=== PATIENT | male | born 1980 | race Two or more races ===

== ENCOUNTER 2020-05-25 10:13 | Inpatient (IN) | payer SELFPAY ==
[2020-05-25] VITALS (10 sets, daily range): BP systolic 122–143; BP diastolic 87–96
[~2020-05-25] VITALS: Ht 167.6 cm; Wt 69.3 kg
--- NOTE | 2020-05-25 10:38 | PHYS DOC ---
General Adult EDM: Chief Complaint: ABDOMINAL PAIN HPI: HPI: Patient is a 39 year old male who presents with states this morning after he drank a beer he began having epigastric pain. He states that he had gone to the market because yesterday he fasted and took laxatives to clean himself out. But went to the market today so he can buy himself some food. He states he drinks a 12 pack of beer every night after work. He states he does not get drunk. Patient states he has epigastric pain that does not radiate. He rates it a 10 out of 10. He states he does use marijuana from time to time. When the patient is asked what the quality of the pain is or what it feels like he states is just a pain. He states is not burning or stabbing. He denies nausea, vomiting, diarrhea, chest pain, shortness of breath, fever, cough, dizziness, headache, numbness or tingling, LOC, vision changes, tremors. 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 He denies any past medical history. He denies taking any medications daily. (FILIPE NELSON APRN) Review of Systems: Review of Systems: Constitutional: Denies fever or chills. [] Eyes: Denies change in visual acuity. [] HENT: Denies nasal congestion or sore throat. [] Respiratory: Denies cough or shortness of breath. [] Cardiovascular: Denies chest pain or edema. [] GI: Epigastric abdominal pain, denies nausea, vomiting, bloody stools or diarrhea. [] : Denies dysuria. [] Musculoskeletal: Denies back pain or joint pain. [] Integument: Denies rash. [] Neurologic: Denies headache, focal weakness or sensory changes. [] Endocrine: Denies polyuria or polydipsia. [] Lymphatic: Denies swollen glands. [] Psychiatric: Denies depression or anxiety. Alcohol abuse [] (FILIPE NELSON APRN) Heart Score: Risk Factors: Risk Factors: DM, Current or recent (<one month) smoker, HTN, HLP, family history of CAD, obesity. Risk Scores: Score 0 - 3: 2.5% MACE over next 6 weeks - Discharge Home Score 4 - 6: 20.3% MACE over next 6 weeks - Admit for Clinical Observation Score 7 - 10: 72.7% MACE over next 6 weeks - Early Invasive Strategies (FILIPE NELSON APRN) Physical Exam: PE: Constitutional: Well developed, well nourished, no acute distress, non-toxic appearance. [] HENT: Normocephalic, atraumatic, bilateral external ears normal, oropharynx moist, no oral exudates, nose normal. [] Eyes: PERRLA, EOMI, conjunctiva normal, no discharge. [] Neck: Normal range of motion, no tenderness, supple, no stridor. [] Cardiovascular:Heart rate regular rhythm, no murmur [] Lungs & Thorax: Bilateral breath sounds clear to auscultation [] Abdomen: Bowel sounds normal, soft, epigastric tenderness, no masses, no pulsatile masses. [] Skin: Warm, dry, no erythema, no rash. [] Back: No tenderness, no CVA tenderness. [] Extremities: No tenderness, no cyanosis, no clubbing, ROM intact, no edema. [] Neurologic: Alert and oriented X 3, normal motor function, normal sensory function, no focal deficits noted. [] Psychologic: Affect normal, judgement normal, mood normal. [] (FILIPE NELSON APRN) EKG: EK and read by Dr Manriquez as Sinuys Rhythm and no STEMI[] (FILIPE NELSON APRN) Radiology/Procedures: Radiology/Procedures: [] Impression: [facility] [address] [place] [address] IMAGING REPORT Signed PATIENT: CARMELA BATES ACCOUNT: [id number] : 1980 LOCATION: ER AGE: 39 SEX: M EXAM STATUS: REG ER ORD. PHYSICIAN: FILIPE NELSON APRN REASON: abd pain, etoh abuse PROCEDURE: CT ABD PELV W/ IV CONTRST ONLY CT ABD PELV W/ IV CONTRST ONLY History: Reason: abd pain, etoh abuse / Spl. Instructions: IV OMNI 300 75 MLS / History: Technique: After the administration of intravenous contrast, CT imaging was performed of the abdomen and pelvis. Multiplanar images are reviewed. Exposure: One or more of the following individualized dose reduction techniques were utilized for this examination: 1. Automated exposure control 2. Adjustment of the mA and/or kV according to patient size 3. Use of iterative reconstruction technique. Comparison: None Findings: Lower chest: No consolidation or pleural effusion. Right lower lobe calcified nodule, likely prior granulomatous disease. Abdomen and pelvis: Small foci of pneumoperitoneum. Small perihepatic and perisplenic as well as pelvic free fluid. Mildly dilated fluid-filled loops of small bowel throughout the abdomen. No discrete condition point. Mild small bowel wall thickening most prominent within the left mid abdomen. Anterior mesenteric edema. Fat-containing anterior upper abdominal wall hernia with infiltration of the fat raising concern for strangulation. Fascial defect measures 1.3 cm. Hernia measures approximately 3.6 x 3.8 cm. The liver, spleen, adrenal glands, and pancreas are unremarkable. Normal appearance the kidneys. No hydronephrosis. Decompressed urinary bladder. Mild gallbladder wall thickening with pericholecystic fluid. No biliary ductal dilatation. Patent portal and hepatic veins. Normal appendix. Bones: No pathologic osseous lesions. Impression: 1. Small upper abdominal pneumoperitoneum, concerning for bowel perforation. 2. Multifocal small bowel wall thickening most prominent within the left mid abdomen with adjacent inflammatory changes and infiltration of the anterior mesentery, may relate to enteritis. 3. Upper abdominal anterior fat-containing hernia with infiltration of the fat, raising concern for strangulated hernia. 4. Small upper abdominal and pelvic ascites. 5. Mild gallbladder wall thickening with pericholecystic fluid, may relate to liver disease. If concern for right upper quadrant pain, ultrasound can better evaluate. FOR INTERNAL CODING PURPOSES Critical result: Findings discussed with FILIPE NELSON at 05/25/2020 11:34 AM. RESULT CODE: (C) Electronically signed by: Blaine Flores DO (05/25/2020 11:37 AM) [id number] DICTATED and SIGNED BY: BLAINE FLORES DO DATE: 05/25/20 1137 [facility] [address] [place] [address] IMAGING REPORT Signed PATIENT: CARMELA BATES ACCOUNT: [id number] : 1980 LOCATION: ER AGE: 39 SEX: M EXAM STATUS: REG ER ORD. PHYSICIAN: FILIPE NELSON APRN REASON: epigastric PROCEDURE: PORTABLE CHEST 1V AP chest. HISTORY: Epigastric pain AP view was taken of the chest. There are no acute infiltrates. There is no effusion. Heart is normal in size. There is deformity of the left fourth rib from old injury or previous surgery or congenital deformity. IMPRESSION: 1. No acute chest disease. Electronically signed by: Arnulfo Mota MD (05/25/2020 12:26 PM) [id number] DICTATED and SIGNED BY: ARNULFO MOTA MD DATE: 05/25/20 1226 (FILIPE NELSON APRN) Course & Med Decision Making: Course & Med Decision Making Pertinent Labs and Imaging studies reviewed. (See chart for details) Abdomen is soft but tender to epigastric. Denies dark or bloody stools. Denies vomiting blood or dysuria. Alert and Oriented. Speaks in full clear sentences. Ambulatory with steady gait. No peripheral edema. Bowel sounds active. Skin pink warm and dry. Patient is positive for amphetamines, marijuana and alcohol levels 25. Patient states he last drank a red bull and a beer this morning at 830. He states he has not had any food since yesterday. There is a small umbilical hernia that is soft and is seen when patient goes to sit up but not felt or seen when laying flat. Impression: 1. Small upper abdominal pneumoperitoneum, concerning for bowel perforation. 2. Multifocal small bowel wall thickening most prominent within the left mid abdomen with adjacent inflammatory changes and infiltration of the anterior mesentery, may relate to enteritis. 3. Upper abdominal anterior fat-containing hernia with infiltration of the fat, raising concern for strangulated hernia. 4. Small upper abdominal and pelvic ascites. 5. Mild gallbladder wall thickening with pericholecystic fluid, may relate to liver disease. If concern for right upper quadrant pain, ultrasound can better evaluate. Zosyn was started on the patient. I have ordered a stat COVID-19 test. I have spoken to Dr Enriquez for admission. I spoken to Dr. Hernandez for surgery. [] (FILIPE NELSON APRN) Dragon Disclaimer: Dragon Disclaimer: This electronic medical record was generated, in whole or in part, using a voice recognition dictation system. (FILIPE NELSON APRN) Departure Departure Impression: Primary Impression: Pneumoperitoneum Additional Impression: Strangulated epigastric hernia Disposition: ADMITTED INPATIENT Admitting Physician: ADAM (FILIPE NELSON APRN) Condition: STABLE Referrals: NO PCP (PCP) Justicifation of Admission Dx: Justifications for Admission: Justification of Admission Dx: Yes Comments: Pneumoperitoneum (FILIPE NELSON APRN) Attending Signature Attending Signature I have reviewed the PA/MFTS's note and plan of care. I was available for consultation as needed during the patient's visit in the emergency department. I agree with the clinical impression, plan, and disposition. (AILEEN MANRIQUEZ DO) FILIPE NELSON APRN May 25, 2020 10:38 AILEEN MANRIQUEZ DO May 28, 2020 01:04
[2020-05-25 10:54] LABS: BASO # 0.1 x10^3/uL (0.0-0.2); BASO % 1 % (0-3); EOS # 0.1 x10^3/uL (0.0-0.7); EOS % 1 % (0-3); HEMOGLOBIN 15.9 g/dL (13.0-17.5); LYMPH # 1.6 x10^3/uL (1.0-4.8); LYMPH % 14 % (24-48); MEAN CORPUSCULAR HEMOGLOBIN 31 pg (25-35); MEAN CORPUSCULAR HGB CONC 35 g/dL (31-37); MEAN CORPUSCULAR VOLUME 87 fL (79-100); MONO # 0.6 x10^3/uL (0.0-1.1); MONO % 6 % (0-9); NEUT # 9.1 x10^3/uL (1.8-7.7); NEUT % 79 % (31-73); PLATELET COUNT 505 x10^3/uL (140-400); RED CELL DISTRIBUTION WIDTH 13.9 % (11.5-14.5); WHITE BLOOD COUNT 11.5 x10^3/uL (4.0-11.0)
[2020-05-25 10:57] LABS: BILIRUBIN,URINE SMALL (NEG); CLARITY,URINE CLEAR; COLOR,URINE AMBER; NITRITE,URINE NEGATIVE (NEG); PROTEIN,URINE NEGATIVE (NEG-TRACE); UROBILINOGEN,URINE 0.2 mg/dL (0.2 mg/dL)
[2020-05-25 11:00] LABS: CALCIUM 9.2 mg/dL (8.5-10.1); CREATININE 0.9 mg/dL (0.7-1.3); GFR 93.5; POTASSIUM 3.7 mmol/L (3.5-5.1)
[2020-05-25] MEDS ORDERED: IV NORMAL SALINE 1000ML BAG 1,000 ML IV SCH (11:00)
[2020-05-25] MEDS ORDERED: ONDANSETRON PF 4 MG/2 ML VIAL. IVP ONE (11:00)
[2020-05-25] MEDS ORDERED: PANTOPRAZOLE IV PUSH 40 MG VIAL. IVP ONE ×2 (11:00→15:00)
[2020-05-25] MEDS ORDERED: IOHEXOL 300 MG/ML 100ML VIAL. IV ONE (11:00)
[2020-05-25] MEDS ORDERED: fentaNYL PF VIAL 100 MCG/2 ML VIAL IVP ONE ×2 (11:00→12:00)
[2020-05-25 11:05] LABS: ALBUMIN 4.1 g/dL (3.4-5.0); ALBUMIN/GLOBULIN RATIO 1.1 (1.0-1.7); MAGNESIUM 2.4 mg/dL (1.8-2.4); TOTAL BILIRUBIN 1.1 mg/dL (0.2-1.0); TOTAL PROTEIN 7.7 g/dL (6.4-8.2)
[2020-05-25 11:06] LABS: BARBITURATES NEG (NEG); BENZODIAZEPINES NEG (NEG); CANNABINOIDS POS (NEG); COCAINE NEG (NEG); METHADONE NEG (NEG); OPIATES NEG (NEG); PHENCYCLIDINE NEG (NEG)
[2020-05-25 11:06] LABS: PROTHROMBIN TIME PATIENT 12.9 SEC (11.7-14.0)
[2020-05-25 11:08] LABS: BACTERIA,URINE 0 /HPF (0-FEW); RBC,URINE 0 /HPF (0-2); SQUAMOUS EPITHELIAL CELL,UR OCC /LPF; WBC,URINE OCC /HPF (0-4)
[2020-05-25 11:15] LABS: AMPHETAMINE/METHAMPHETAMINE POS (NEG)
--- NOTE | 2020-05-25 11:39 | RAD ---
CT ABD PELV W/ IV CONTRST ONLY History: Reason: abd pain, etoh abuse / Spl. Instructions: IV OMNI 300 75 MLS / History: Technique: After the administration of intravenous contrast, CT imaging was performed of the abdomen and pelvis. Multiplanar images are reviewed. Exposure: One or more of the following individualized dose reduction techniques were utilized for this examination: 1. Automated exposure control 2. Adjustment of the mA and/or kV according to patient size 3. Use of iterative reconstruction technique. Comparison: None Findings: Lower chest: No consolidation or pleural effusion. Right lower lobe calcified nodule, likely prior granulomatous disease. Abdomen and pelvis: Small foci of pneumoperitoneum. Small perihepatic and perisplenic as well as pelvic free fluid. Mildly dilated fluid-filled loops of small bowel throughout the abdomen. No discrete condition point. Mild small bowel wall thickening most prominent within the left mid abdomen. Anterior mesenteric edema. Fat-containing anterior upper abdominal wall hernia with infiltration of the fat raising concern for strangulation. Fascial defect measures 1.3 cm. Hernia measures approximately 3.6 x 3.8 cm. The liver, spleen, adrenal glands, and pancreas are unremarkable. Normal appearance the kidneys. No hydronephrosis. Decompressed urinary bladder. Mild gallbladder wall thickening with pericholecystic fluid. No biliary ductal dilatation. Patent portal and hepatic veins. Normal appendix. Bones: No pathologic osseous lesions. Impression: 1. Small upper abdominal pneumoperitoneum, concerning for bowel perforation. 2. Multifocal small bowel wall thickening most prominent within the left mid abdomen with adjacent inflammatory changes and infiltration of the anterior mesentery, may relate to enteritis. 3. Upper abdominal anterior fat-containing hernia with infiltration of the fat, raising concern for strangulated hernia. 4. Small upper abdominal and pelvic ascites. 5. Mild gallbladder wall thickening with pericholecystic fluid, may relate to liver disease. If concern for right upper quadrant pain, ultrasound can better evaluate. FOR INTERNAL CODING PURPOSES Critical result: Findings discussed with FILIPE NELSON at 05/25/2020 11:34 AM. RESULT CODE: (C) Electronically signed by: Blaine Flores DO (05/25/2020 11:37 AM) [id number]
[2020-05-25] MEDS ORDERED: IV NORMAL SALINE 1000ML BAG 1,000 ML IV ONE (12:00)
[2020-05-25] MEDS ORDERED: PIPERACILLIN/TAZOBACTAM 3.375 GM in IV NORMAL SALINE 50ML 50 ML IV ONE (12:00)
--- NOTE | 2020-05-25 12:06 | PDOC1 ---
History and Physical Date of Admission Date of Admission DATE: 05/25/20 TIME: 12:06 Identification/Chief Complaint Chief Complaint seen in er with ABDOMINAL PAIN 39 year old mal// this morning after he drank a beer he began having epigastric pain. , he drinks a 12 pack of beer every night after work. states he has epigastric pain that does not radiate. IS [address] C/W perf bowel denies nausea, vomiting, diarrhea, chest pain, shortness of breath, fever, cough, dizziness, headache, numbness or tingling, LOC, vision changes, tremors. Past Medical History Psych: Addictions Family History Family History: Alcohol Abuse Social History Smoke: No ALCOHOL: heavy Drugs: Marijuana Current Problem List Problem List Problems Medical Problems: (1) Pneumoperitoneum Status: Acute (2) Strangulated epigastric hernia Status: Acute Current Medications Current Medications Current Medications Sodium Chloride 1,000 ml @ 1,000 mls/hr Q1H IV Last administered on 05/25/20at 11:04; Start 05/25/20 at 11:00; Stop 05/25/20 at 11:59; Status DC Fentanyl Citrate (Fentanyl 2ml Vial) 50 mcg 1X ONCE IVP Last administered on 05/25/20at 11:04; Start 05/25/20 at 11:00; Stop 05/25/20 at 11:01; Status DC Ondansetron HCl (Zofran) 4 mg 1X ONCE IVP Last administered on 05/25/20at 11:04; Start 05/25/20 at 11:00; Stop 05/25/20 at 11:01; Status DC Pantoprazole Sodium (PROTONIX VIAL for IV PUSH) 40 mg 1X ONCE IVP Last administered on 05/25/20at 11:04; Start 05/25/20 at 11:00; Stop 05/25/20 at 11:01; Status DC Iohexol (Omnipaque 300 Mg/ml) 75 ml 1X ONCE IV Last administered on 05/25/20at 11:17; Start 05/25/20 at 11:00; Stop 05/25/20 at 11:01; Status DC Piperacillin Sod/ Tazobactam Sod 3.375 gm/Sodium Chloride 50 ml @ 100 mls/hr 1X ONCE IV Last administered on 05/25/20at 11:54; Start 05/25/20 at 12:00; Stop 05/25/20 at 12:29 Sodium Chloride 1,000 ml @ 1,000 mls/hr 1X ONCE IV Last administered on 05/25/20at 11:53; Start 05/25/20 at 12:00; Stop 05/25/20 at 12:59 Fentanyl Citrate (Fentanyl 2ml Vial) 50 mcg 1X ONCE IVP Last administered on 05/25/20at 11:53; Start 05/25/20 at 12:00; Stop 05/25/20 at 12:01; Status DC Allergies Allergies: Coded Allergies: No Known Drug Allergies (Unverified , 05/25/20) ROS Review of System Constitutional: Denies fever or chills. [] Eyes: Denies change in visual acuity. [] HENT: Denies nasal congestion or sore throat. [] Respiratory: Denies cough or shortness of breath. [] Cardiovascular: Denies chest pain or edema. [] GI: Epigastric abdominal pain, denies nausea, vomiting, bloody stools or diarrhea. [] : Denies dysuria. [] Musculoskeletal: Denies back pain or joint pain. [] Integument: Denies rash. [] Neurologic: Denies headache, focal weakness or sensory changes. [] Endocrine: Denies polyuria or polydipsia. [] Lymphatic: Denies swollen glands. [] Psychiatric: Denies depression or anxiety. pos Alcohol abuse [] Respiratory: No: Cough, Hemoptysis, Orthopnea, Pleuritic Pain, Shortness of breath, SOB with excertion, Sputum Changes, Stridor, Tachypnea, Wheezing, Other Cardiovascular: No Chest Pain, No Palpitations, No Orthopnea, No Paroxysmal Noc. Dyspnea, No Edema, No Lt Headedness, No Other Gastrointestinal: Yes Abdominal Pain; No Nausea, No Vomiting, No Diarrhea, No Constipation, No Melena, No Hematochezia, No Other Genitourinary: No Dysuria, No Frequency, No Incontinence, No Hematuria, No Retention, No Discharge, No Urgency, No Pain, No Flank Pain, No Other, No , No , No , No , No , No , No Musculoskeletal: No Gait Disturbance, No Joint Pain, No Joint Stiffness, No Joint Swelling, No Muscle Pain, No Muscular Weakness, No Pain In:, No Swelling In:, No Other Skin: No Dry Skin, No Eczema, No Hair Changes, No Lumps, No Mole Changes, No Mottling, No Nail Changes, No Pruritus, No Rash, No Skin Lesion Changes, No Other, No Acne Physical Exam Physical Exam Constitutional: Well developed, well nourished, mild acute distress, non-toxic appearance. [] HENT: Normocephalic, atraumatic, bilateral external ears normal, oropharynx moist, no oral exudates, nose normal. [] Eyes: PERRLA, EOMI, conjunctiva normal, no discharge. [] Neck: Normal range of motion, no tenderness, supple, no stridor. [] Cardiovascular:Heart rate regular rhythm, no murmur [] Lungs & Thorax: Bilateral breath sounds cta [] Abdomen: Bowel sounds normal, soft, mild epigastric tenderness, no masses, no pulsatile masses. [] Skin: Warm, dry, no erythema, no rash. [] Back: No tenderness, no CVA tenderness. [] Extremities: No tenderness, no cyanosis, no clubbing, ROM intact, no edema. [] Neurologic: Alert and oriented X 3, normal motor function, normal sensory function, no focal deficits noted. [] Psychologic: Affect normal, judgement normal, mood normal. [] General: Alert, Oriented X3, Cooperative, mild distress, Other (sclera icteric) HEENT: Atraumatic, EOMI, Mucous membr. moist/pink Lungs: Clear to auscultation, Normal air movement Heart: S1S2, RRR, no thrills, no rubs, no gallops, no murmurs Breasts: Not examined Abdomen: No hepatosplenomegaly Rectal Exam: not examined Extremities: No cyanosis Neuro: Normal speech, Cranial nerves 3-12 NL Psych/Mental Status: Mental status NL, Mood NL Vitals Vitals Vital Signs Date Time Temp Pulse Resp B/P (MAP) Pulse Ox O2 Delivery O2 Flow Rate FiO2 05/25/20 11:53 18 100 Room Air 05/25/20 10:15 97.5 75 154/101 (118) 97.5 Labs Labs Laboratory Tests Test 05/25/20 10:35 05/25/20 10:37 Urine Collection Type Void Urine Color Shakira Urine Clarity Clear Urine pH 6.0 (<5.0-8.0) Urine Specific [place] 1.020 (1.000-1.030) Urine Protein Negative mg/dL (NEG-TRACE) Urine Glucose (UA) Negative mg/dL (NEG) Urine Ketones (Stick) Trace mg/dL (NEG) Urine Blood Negative (NEG) Urine Nitrite Negative (NEG) Urine Bilirubin Small (NEG) Urine Urobilinogen Dipstick 0.2 mg/dL (0.2 mg/dL) Urine Leukocyte Esterase Negative (NEG) Urine RBC 0 /HPF (0-2) Urine WBC Occ /HPF (0-4) Urine Squamous Epithelial Cells Occ /LPF Urine Bacteria 0 /HPF (0-FEW) Urine Mucus Mod /LPF Urine Opiates Screen Neg (NEG) Urine Methadone Screen Neg (NEG) Urine Barbiturates Neg (NEG) Urine Phencyclidine Screen Neg (NEG) Urine Amphetamine/Methamphetamine Pos (NEG) Urine Benzodiazepines Screen Neg (NEG) Urine Cocaine Screen Neg (NEG) Urine Cannabinoids Screen Pos (NEG) Urine Ethyl Alcohol Pos (NEG) White Blood Count 11.5 x10^3/uL (4.0-11.0) Red Blood Count 5.20 x10^6/uL (4.30-5.70) Hemoglobin 15.9 g/dL (13.0-17.5) Hematocrit 45.0 % (39.0-53.0) Mean Corpuscular Volume 87 fL (79-100) Mean Corpuscular Hemoglobin 31 pg (25-35) Mean Corpuscular Hemoglobin Concent 35 g/dL (31-37) Red Cell Distribution Width 13.9 % (11.5-14.5) Platelet Count 505 x10^3/uL (140-400) Neutrophils (%) (Auto) 79 % (31-73) Lymphocytes (%) (Auto) 14 % (24-48) Monocytes (%) (Auto) 6 % (0-9) Eosinophils (%) (Auto) 1 % (0-3) Basophils (%) (Auto) 1 % (0-3) Neutrophils # (Auto) 9.1 x10^3/uL (1.8-7.7) Lymphocytes # (Auto) 1.6 x10^3/uL (1.0-4.8) Monocytes # (Auto) 0.6 x10^3/uL (0.0-1.1) Eosinophils # (Auto) 0.1 x10^3/uL (0.0-0.7) Basophils # (Auto) 0.1 x10^3/uL (0.0-0.2) Prothrombin Time 12.9 SEC (11.7-14.0) Prothromb Time International Ratio 1.0 (0.8-1.1) Sodium Level 138 mmol/L (136-145) Potassium Level 3.7 mmol/L (3.5-5.1) Chloride Level 98 mmol/L (98-107) Carbon Dioxide Level 27 mmol/L (21-32) Anion Gap 13 (6-14) Blood Urea Nitrogen 9 mg/dL (8-26) Creatinine 0.9 mg/dL (0.7-1.3) Estimated GFR (Cockcroft-Gault) 93.5 BUN/Creatinine Ratio 10 (6-20) Glucose Level 131 mg/dL (70-99) Calcium Level 9.2 mg/dL (8.5-10.1) Magnesium Level 2.4 mg/dL (1.8-2.4) Total Bilirubin 1.1 mg/dL (0.2-1.0) Aspartate Amino Transf (AST/SGOT) 50 U/L (15-37) Alanine Aminotransferase (ALT/SGPT) 42 U/L (16-63) Alkaline Phosphatase 83 U/L (46-116) Troponin I Quantitative < 0.017 ng/mL (0.000-0.055) Total Protein 7.7 g/dL (6.4-8.2) Albumin 4.1 g/dL (3.4-5.0) Albumin/Globulin Ratio 1.1 (1.0-1.7) Lipase 111 U/L (73-393) Ethyl Alcohol Level 25 mg/dL (0-10) Laboratory Tests Test 05/25/20 10:35 05/25/20 10:37 Urine Collection Type Void Urine Color Shakira Urine Clarity Clear Urine pH 6.0 (<5.0-8.0) Urine Specific [place] 1.020 (1.000-1.030) Urine Protein Negative mg/dL (NEG-TRACE) Urine Glucose (UA) Negative mg/dL (NEG) Urine Ketones (Stick) Trace mg/dL (NEG) Urine Blood Negative (NEG) Urine Nitrite Negative (NEG) Urine Bilirubin Small (NEG) Urine Urobilinogen Dipstick 0.2 mg/dL (0.2 mg/dL) Urine Leukocyte Esterase Negative (NEG) Urine RBC 0 /HPF (0-2) Urine WBC Occ /HPF (0-4) Urine Squamous Epithelial Cells Occ /LPF Urine Bacteria 0 /HPF (0-FEW) Urine Mucus Mod /LPF Urine Opiates Screen Neg (NEG) Urine Methadone Screen Neg (NEG) Urine Barbiturates Neg (NEG) Urine Phencyclidine Screen Neg (NEG) Urine Amphetamine/Methamphetamine Pos (NEG) Urine Benzodiazepines Screen Neg (NEG) Urine Cocaine Screen Neg (NEG) Urine Cannabinoids Screen Pos (NEG) Urine Ethyl Alcohol Pos (NEG) White Blood Count 11.5 x10^3/uL (4.0-11.0) Red Blood Count 5.20 x10^6/uL (4.30-5.70) Hemoglobin 15.9 g/dL (13.0-17.5) Hematocrit 45.0 % (39.0-53.0) Mean Corpuscular Volume 87 fL (79-100) Mean Corpuscular Hemoglobin 31 pg (25-35) Mean Corpuscular Hemoglobin Concent 35 g/dL (31-37) Red Cell Distribution Width 13.9 % (11.5-14.5) Platelet Count 505 x10^3/uL (140-400) Neutrophils (%) (Auto) 79 % (31-73) Lymphocytes (%) (Auto) 14 % (24-48) Monocytes (%) (Auto) 6 % (0-9) Eosinophils (%) (Auto) 1 % (0-3) Basophils (%) (Auto) 1 % (0-3) Neutrophils # (Auto) 9.1 x10^3/uL (1.8-7.7) Lymphocytes # (Auto) 1.6 x10^3/uL (1.0-4.8) Monocytes # (Auto) 0.6 x10^3/uL (0.0-1.1) Eosinophils # (Auto) 0.1 x10^3/uL (0.0-0.7) Basophils # (Auto) 0.1 x10^3/uL (0.0-0.2) Prothrombin Time 12.9 SEC (11.7-14.0) Prothromb Time International Ratio 1.0 (0.8-1.1) Sodium Level 138 mmol/L (136-145) Potassium Level 3.7 mmol/L (3.5-5.1) Chloride Level 98 mmol/L (98-107) Carbon Dioxide Level 27 mmol/L (21-32) Anion Gap 13 (6-14) Blood Urea Nitrogen 9 mg/dL (8-26) Creatinine 0.9 mg/dL (0.7-1.3) Estimated GFR (Cockcroft-Gault) 93.5 BUN/Creatinine Ratio 10 (6-20) Glucose Level 131 mg/dL (70-99) Calcium Level 9.2 mg/dL (8.5-10.1) Magnesium Level 2.4 mg/dL (1.8-2.4) Total Bilirubin 1.1 mg/dL (0.2-1.0) Aspartate Amino Transf (AST/SGOT) 50 U/L (15-37) Alanine Aminotransferase (ALT/SGPT) 42 U/L (16-63) Alkaline Phosphatase 83 U/L (46-116) Troponin I Quantitative < 0.017 ng/mL (0.000-0.055) Total Protein 7.7 g/dL (6.4-8.2) Albumin 4.1 g/dL (3.4-5.0) Albumin/Globulin Ratio 1.1 (1.0-1.7) Lipase 111 U/L (73-393) Ethyl Alcohol Level 25 mg/dL (0-10) Images Images HISTORY: Epigastric pain AP view was taken of the chest. There are no acute infiltrates. There is no effusion. Heart is normal in size. There is deformity of the left fourth rib from old injury or previous surgery or congenital deformity. IMPRESSION: 1. No acute chest disease. Electronically signed by: Arnulfo Mota MD (05/25/2020 12:26 PM) [id number] DICTATED and SIGNED BY: ARNULFO MOTA MD DATE: 05/25/20 1226 Exposure: One or more of the following individualized dose reduction techniques were utilized for this examination: 1. Automated exposure control 2. Adjustment of the mA and/or kV according to patient size 3. Use of iterative reconstruction technique. Comparison: None Findings: Lower chest: No consolidation or pleural effusion. Right lower lobe calcified nodule, likely prior granulomatous disease. Abdomen and pelvis: Small foci of pneumoperitoneum. Small perihepatic and perisplenic as well as pelvic free fluid. Mildly dilated fluid-filled loops of small bowel throughout the abdomen. No discrete condition point. Mild small bowel wall thickening most prominent within the left mid abdomen. Anterior mesenteric edema. Fat-containing anterior upper abdominal wall hernia with infiltration of the fat raising concern for strangulation. Fascial defect measures 1.3 cm. Hernia measures approximately 3.6 x 3.8 cm. The liver, spleen, adrenal glands, and pancreas are unremarkable. Normal appearance the kidneys. No hydronephrosis. Decompressed urinary bladder. Mild gallbladder wall thickening with pericholecystic fluid. No biliary ductal dilatation. Patent portal and hepatic veins. Normal appendix. Bones: No pathologic osseous lesions. Impression: 1. Small upper abdominal pneumoperitoneum, concerning for bowel perforation. 2. Multifocal small bowel wall thickening most prominent within the left mid abdomen with adjacent inflammatory changes and infiltration of the anterior mesentery, may relate to enteritis. 3. Upper abdominal anterior fat-containing hernia with infiltration of the fat, raising concern for strangulated hernia. 4. Small upper abdominal and pelvic ascites. 5. Mild gallbladder wall thickening with pericholecystic fluid, may relate to liver disease. If concern for right upper quadrant pain, ultrasound can better evaluate. FOR INTERNAL CODING PURPOSES Critical result: Findings discussed with FILIPE NELSON at 05/25/2020 11:34 AM. RESULT CODE: (C) Electronically signed by: Blaine Flores DO (05/25/2020 11:37 AM) [id number] DICTATED and SIGNED BY: BLAINE FLORES DO DATE: 05/25/20 1137 VTE Prophylaxis Ordered VTE Prophylaxis Devices: Yes VTE Pharmacological Prophylaxi: Contraindicated Assessment/Plan Assessment/Plan Impression: 1 Acute abdominal pain se to # 2 . 2. Small upper abdominal pneumoperitoneum, concerning for bowel perforation. 3. Multifocal small bowel wall thickening most prominent within the left mid abdomen with adjacent inflammatory changes and infiltration of the anterior mesentery, may relate to enteritis. 4. Upper abdominal anterior fat-containing hernia with infiltration of the fat, raising concern for strangulated hernia. Anterior mesenteric edema. Fat-containing anterior upper abdominal wall hernia with infiltration of the fat raising concern for strangulation. Fascial defect measures 1.3 cm. Hernia measures approximately 3.6 x 3.8 cm. 5. Small upper abdominal and pelvic ascites. 6. Mild gallbladder wall thickening with pericholecystic fluid, may relate to liver disease. If concern for right upper quadrant pain, ultrasound can better evaluate. 7. severe alcohol abuse 8. methamphetamine abuse plan ADMIT GEN SURGERY CONSULT may require laparotomy, possible bowel resection NPO IV FLUIDS IV PROTONIX GI CONSULT CIWA PRECAUTIONS thiamine iv daily banana bag iv daily scd's 78 min pt exam, chart review, > 50% of time spent with exam, chart review, pt care coordination Justicifation of Admission Dx: Justifications for Admission: Justification of Admission Dx: Yes Sepsis: Infection MARIO BLOOM MD May 25, 2020 12:06
[2020-05-25] MEDS ORDERED: ONDANSETRON PF 4 MG/2 ML VIAL. IV PRN ×3 (12:15→14:45)
--- NOTE | 2020-05-25 12:29 | RAD ---
AP chest. HISTORY: Epigastric pain AP view was taken of the chest. There are no acute infiltrates. There is no effusion. Heart is normal in size. There is deformity of the left fourth rib from old injury or previous surgery or congenital deformity. IMPRESSION: 1. No acute chest disease. Electronically signed by: Arnulfo Mota MD (05/25/2020 12:26 PM) [id number]
[2020-05-25] MEDS: IV NORMAL SALINE 1000ML BAG 1,000 ML IV SCH ×3 (13:04→22:42)
[2020-05-25] MEDS ORDERED: LIDOCAINE 1% PF 2 ML VIAL. ID PRN (13:30)
[2020-05-25] MEDS ORDERED: PROCHLORPERAZINE 10 MG/2 ML VIAL. IV PRN (13:30)
[2020-05-25] MEDS ORDERED: fentaNYL PF VIAL 100 MCG/2 ML VIAL IV PRN (13:30)
[2020-05-25] MEDS ORDERED: MORPHINE SULFATE 2 MG/ML VIAL. IV PRN (13:30)
[2020-05-25] MEDS ORDERED: IV RINGERS,LACTATED 1000ML 1,000 ML IV SCH (13:30)
[2020-05-25] MEDS ORDERED: HYDROmorphone 2 MG/ML VIAL IV PRN (13:30)
--- NOTE | 2020-05-25 13:39 | PDOC2 ---
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 He has never had pain in his hernia before Tried some mild today, but the pain did not improved Denies nausea or emesis No improvement with laxatives Does have a heavy alcohol hx intake--12 pack a day Drug screen + for marijuana and meth Past Medical History Past Medical History denies any pertinent hx Past Surgical History Past Surgical History: No pertinent history Family History Family History: Family History Unknown Social History 1 pack per day ALCOHOL: heavy Drugs: Marijuana, Crystal meth Lives: Alone Current Problem List Problem List Problems Medical Problems: (1) Pneumoperitoneum Status: Acute (2) Strangulated epigastric hernia Status: Acute Current Medications Current Medications Current Medications Sodium Chloride 1,000 ml @ 1,000 mls/hr Q1H IV Last administered on 05/25/20at 11:04; Start 05/25/20 at 11:00; Stop 05/25/20 at 11:59; Status DC Fentanyl Citrate (Fentanyl 2ml Vial) 50 mcg 1X ONCE IVP Last administered on 05/25/20at 11:04; Start 05/25/20 at 11:00; Stop 05/25/20 at 11:01; Status DC Ondansetron HCl (Zofran) 4 mg 1X ONCE IVP Last administered on 05/25/20at 11:04; Start 05/25/20 at 11:00; Stop 05/25/20 at 11:01; Status DC Pantoprazole Sodium (PROTONIX VIAL for IV PUSH) 40 mg 1X ONCE IVP Last administered on 05/25/20at 11:04; Start 05/25/20 at 11:00; Stop 05/25/20 at 11:01; Status DC Iohexol (Omnipaque 300 Mg/ml) 75 ml 1X ONCE IV Last administered on 05/25/20at 11:17; Start 05/25/20 at 11:00; Stop 05/25/20 at 11:01; Status DC Piperacillin Sod/ Tazobactam Sod 3.375 gm/Sodium Chloride 50 ml @ 100 mls/hr 1X ONCE IV Last administered on 05/25/20at 11:54; Start 05/25/20 at 12:00; Stop 05/25/20 at 12:29; Status DC Sodium Chloride 1,000 ml @ 1,000 mls/hr 1X ONCE IV Last administered on 05/25/20at 11:53; Start 05/25/20 at 12:00; Stop 05/25/20 at 12:59; Status DC Fentanyl Citrate (Fentanyl 2ml Vial) 50 mcg 1X ONCE IVP Last administered on 05/25/20at 11:53; Start 05/25/20 at 12:00; Stop 05/25/20 at 12:01; Status DC Ondansetron HCl (Zofran) 4 mg PRN Q8HRS PRN IV NAUSEA/VOMITING; Start 05/25/20 at 12:15; Stop 05/26/20 at 12:14 Fentanyl Citrate (Fentanyl 2ml Vial) 50 mcg PRN Q1HR PRN IV PAIN; Start 05/25/20 at 12:15; Stop 05/26/20 at 12:14 Sodium Chloride 1,000 ml @ 125 mls/hr Q8H IV Last administered on 05/25/20at 13:04; Start 05/25/20 at 13:00; Stop 05/26/20 at 12:59 Ondansetron HCl (Zofran) 4 mg PRN Q6HRS PRN IV NAUSEA/VOMITING; Start 05/25/20 at 13:30; Stop 05/25/20 at 21:00 Fentanyl Citrate (Fentanyl 2ml Vial) 25 mcg PRN Q5MIN PRN IV MILD PAIN 1-3; Start 05/25/20 at 13:30; Stop 05/25/20 at 21:00 Fentanyl Citrate (Fentanyl 2ml Vial) 50 mcg PRN Q5MIN PRN IV MODERATE TO SEVERE PAIN; Start 05/25/20 at 13:30; Stop 05/25/20 at 21:00 Morphine Sulfate (Morphine Sulfate) 1 mg PRN Q10MIN PRN IV SEVERE PAIN 7-10; Start 05/25/20 at 13:30; Stop 05/25/20 at 21:00 Ringer's Solution 1,000 ml @ 30 mls/hr Q24H IV ; Start 05/25/20 at 13:30; Stop 05/26/20 at 13:29 Lidocaine HCl (Xylocaine-Mpf 1% 2ml Vial) 2 ml PRN 1X PRN ID PRIOR TO IV START; Start 05/25/20 at 13:30; Stop 05/26/20 at 13:29 Hydromorphone HCl (Dilaudid) 0.5 mg PRN Q10MIN PRN IV SEV PAIN, Second choice; Start 05/25/20 at 13:30; Stop 05/25/20 at 21:00 Prochlorperazine Edisylate (Compazine) 5 mg PACU PRN PRN IV NAUSEA, MRX1; Start 05/25/20 at 13:30; Stop 05/25/20 at 21:00 Allergies Allergies: Coded Allergies: No Known Drug Allergies (Unverified , 05/25/20) ROS General: No: Chills, Other (fevers ) PSYCHOLOGICAL ROS: No: Anxiety, Depression Eyes: No Blurry vision, No Loss of vision HEENT: No: Heacaches, Sore Throat Hematological and Lymphatic: No: Bleeding Problems, Blood Clots Respiratory: No: Cough, Shortness of breath Cardiovascular: No Chest Pain, No Palpitations Gastrointestinal: Yes Other (see hpi) Genitourinary: No Dysuria, No Hematuria Musculoskeletal: No Joint Pain, No Muscle Pain Neurological: No Impaired Coord/balance, No Numbness/Tingling Skin: No Pruritus, No Rash Physical Exam General: Alert, Oriented X3, Cooperative, No acute distress HEENT: Atraumatic, PERRLA Lungs: Clear to auscultation, Normal air movement Heart: Regular rate, Normal S1, Normal S2 Abdomen: Soft, Other (palpable hernia upper abdomen, tender on exam, not able to fully reduce--generalized pain on exam, no guarding or peritoneal signs ) Extremities: No clubbing, No cyanosis Skin: No rashes, No breakdown Neuro: Normal gait, Normal speech Psych/Mental Status: Mental status NL, Mood NL MUSCULOSKELETAL: No deformity, No swelling Vitals VITALS Vital Signs Date Time Temp Pulse Resp B/P (MAP) Pulse Ox O2 Delivery O2 Flow Rate FiO2 05/25/20 13:08 100 17 124/84 (97) 100 Room Air 05/25/20 10:15 97.5 97.5 Labs Labs Laboratory Tests Test 05/25/20 10:35 05/25/20 10:37 05/25/20 11:48 Urine Collection Type Void Urine Color Shakira Urine Clarity Clear Urine pH 6.0 (<5.0-8.0) Urine Specific [place] 1.020 (1.000-1.030) Urine Protein Negative mg/dL (NEG-TRACE) Urine Glucose (UA) Negative mg/dL (NEG) Urine Ketones (Stick) Trace mg/dL (NEG) Urine Blood Negative (NEG) Urine Nitrite Negative (NEG) Urine Bilirubin Small (NEG) Urine Urobilinogen Dipstick 0.2 mg/dL (0.2 mg/dL) Urine Leukocyte Esterase Negative (NEG) Urine RBC 0 /HPF (0-2) Urine WBC Occ /HPF (0-4) Urine Squamous Epithelial Cells Occ /LPF Urine Bacteria 0 /HPF (0-FEW) Urine Mucus Mod /LPF Urine Opiates Screen Neg (NEG) Urine Methadone Screen Neg (NEG) Urine Barbiturates Neg (NEG) Urine Phencyclidine Screen Neg (NEG) Urine Amphetamine/Methamphetamine Pos (NEG) Urine Benzodiazepines Screen Neg (NEG) Urine Cocaine Screen Neg (NEG) Urine Cannabinoids Screen Pos (NEG) Urine Ethyl Alcohol Pos (NEG) White Blood Count 11.5 x10^3/uL (4.0-11.0) Red Blood Count 5.20 x10^6/uL (4.30-5.70) Hemoglobin 15.9 g/dL (13.0-17.5) Hematocrit 45.0 % (39.0-53.0) Mean Corpuscular Volume 87 fL (79-100) Mean Corpuscular Hemoglobin 31 pg (25-35) Mean Corpuscular Hemoglobin Concent 35 g/dL (31-37) Red Cell Distribution Width 13.9 % (11.5-14.5) Platelet Count 505 x10^3/uL (140-400) Neutrophils (%) (Auto) 79 % (31-73) Lymphocytes (%) (Auto) 14 % (24-48) Monocytes (%) (Auto) 6 % (0-9) Eosinophils (%) (Auto) 1 % (0-3) Basophils (%) (Auto) 1 % (0-3) Neutrophils # (Auto) 9.1 x10^3/uL (1.8-7.7) Lymphocytes # (Auto) 1.6 x10^3/uL (1.0-4.8) Monocytes # (Auto) 0.6 x10^3/uL (0.0-1.1) Eosinophils # (Auto) 0.1 x10^3/uL (0.0-0.7) Basophils # (Auto) 0.1 x10^3/uL (0.0-0.2) Prothrombin Time 12.9 SEC (11.7-14.0) Prothromb Time International Ratio 1.0 (0.8-1.1) Sodium Level 138 mmol/L (136-145) Potassium Level 3.7 mmol/L (3.5-5.1) Chloride Level 98 mmol/L (98-107) Carbon Dioxide Level 27 mmol/L (21-32) Anion Gap 13 (6-14) Blood Urea Nitrogen 9 mg/dL (8-26) Creatinine 0.9 mg/dL (0.7-1.3) Estimated GFR (Cockcroft-Gault) 93.5 BUN/Creatinine Ratio 10 (6-20) Glucose Level 131 mg/dL (70-99) Calcium Level 9.2 mg/dL (8.5-10.1) Magnesium Level 2.4 mg/dL (1.8-2.4) Total Bilirubin 1.1 mg/dL (0.2-1.0) Aspartate Amino Transf (AST/SGOT) 50 U/L (15-37) Alanine Aminotransferase (ALT/SGPT) 42 U/L (16-63) Alkaline Phosphatase 83 U/L (46-116) Troponin I Quantitative < 0.017 ng/mL (0.000-0.055) Total Protein 7.7 g/dL (6.4-8.2) Albumin 4.1 g/dL (3.4-5.0) Albumin/Globulin Ratio 1.1 (1.0-1.7) Lipase 111 U/L (73-393) Ethyl Alcohol Level 25 mg/dL (0-10) Lactic Acid Level 1.4 mmol/L (0.4-2.0) Laboratory Tests Test 05/25/20 10:35 05/25/20 10:37 05/25/20 11:48 Urine Collection Type Void Urine Color Shakira Urine Clarity Clear Urine pH 6.0 (<5.0-8.0) Urine Specific [place] 1.020 (1.000-1.030) Urine Protein Negative mg/dL (NEG-TRACE) Urine Glucose (UA) Negative mg/dL (NEG) Urine Ketones (Stick) Trace mg/dL (NEG) Urine Blood Negative (NEG) Urine Nitrite Negative (NEG) Urine Bilirubin Small (NEG) Urine Urobilinogen Dipstick 0.2 mg/dL (0.2 mg/dL) Urine Leukocyte Esterase Negative (NEG) Urine RBC 0 /HPF (0-2) Urine WBC Occ /HPF (0-4) Urine Squamous Epithelial Cells Occ /LPF Urine Bacteria 0 /HPF (0-FEW) Urine Mucus Mod /LPF Urine Opiates Screen Neg (NEG) Urine Methadone Screen Neg (NEG) Urine Barbiturates Neg (NEG) Urine Phencyclidine Screen Neg (NEG) Urine Amphetamine/Methamphetamine Pos (NEG) Urine Benzodiazepines Screen Neg (NEG) Urine Cocaine Screen Neg (NEG) Urine Cannabinoids Screen Pos (NEG) Urine Ethyl Alcohol Pos (NEG) White Blood Count 11.5 x10^3/uL (4.0-11.0) Red Blood Count 5.20 x10^6/uL (4.30-5.70) Hemoglobin 15.9 g/dL (13.0-17.5) Hematocrit 45.0 % (39.0-53.0) Mean Corpuscular Volume 87 fL (79-100) Mean Corpuscular Hemoglobin 31 pg (25-35) Mean Corpuscular Hemoglobin Concent 35 g/dL (31-37) Red Cell Distribution Width 13.9 % (11.5-14.5) Platelet Count 505 x10^3/uL (140-400) Neutrophils (%) (Auto) 79 % (31-73) Lymphocytes (%) (Auto) 14 % (24-48) Monocytes (%) (Auto) 6 % (0-9) Eosinophils (%) (Auto) 1 % (0-3) Basophils (%) (Auto) 1 % (0-3) Neutrophils # (Auto) 9.1 x10^3/uL (1.8-7.7) Lymphocytes # (Auto) 1.6 x10^3/uL (1.0-4.8) Monocytes # (Auto) 0.6 x10^3/uL (0.0-1.1) Eosinophils # (Auto) 0.1 x10^3/uL (0.0-0.7) Basophils # (Auto) 0.1 x10^3/uL (0.0-0.2) Prothrombin Time 12.9 SEC (11.7-14.0) Prothromb Time International Ratio 1.0 (0.8-1.1) Sodium Level 138 mmol/L (136-145) Potassium Level 3.7 mmol/L (3.5-5.1) Chloride Level 98 mmol/L (98-107) Carbon Dioxide Level 27 mmol/L (21-32) Anion Gap 13 (6-14) Blood Urea Nitrogen 9 mg/dL (8-26) Creatinine 0.9 mg/dL (0.7-1.3) Estimated GFR (Cockcroft-Gault) 93.5 BUN/Creatinine Ratio 10 (6-20) Glucose Level 131 mg/dL (70-99) Calcium Level 9.2 mg/dL (8.5-10.1) Magnesium Level 2.4 mg/dL (1.8-2.4) Total Bilirubin 1.1 mg/dL (0.2-1.0) Aspartate Amino Transf (AST/SGOT) 50 U/L (15-37) Alanine Aminotransferase (ALT/SGPT) 42 U/L (16-63) Alkaline Phosphatase 83 U/L (46-116) Troponin I Quantitative < 0.017 ng/mL (0.000-0.055) Total Protein 7.7 g/dL (6.4-8.2) Albumin 4.1 g/dL (3.4-5.0) Albumin/Globulin Ratio 1.1 (1.0-1.7) Lipase 111 U/L (73-393) Ethyl Alcohol Level 25 mg/dL (0-10) Lactic Acid Level 1.4 mmol/L (0.4-2.0) Assessment/Plan Assessment/Plan pneumoperitoneum fat containing hernia alcohol/substance abuse wbc 11, plts/INR stable tentative plan for OR with Dr David Reid pending KALPESH BERMUDEZ MD 05/25/20 1483: CONSULT Assessment/Plan Assessment/Plan Pt seen and examined by myself; 39 year old male with abdominal pain, he states the pain is in the upper abdomen, superior to the hernia, not at the hernia. PMH/PSH/ROS/SH as above; exam: alert, oriented, no severe distress, lungs clear, heart RR and R, abdomen soft, mass superior to umbilicus in midline, tender superior abdomen, localized guarding, no diffuse pain or peritonitis; labs/xrays reviewed; A/P) Abdominal pain, focal pneumoperitoneum, mid abdominal hernia with incarcerated fat; recommend X laparoscopy, may require laparotomy, possible bowel resection HANS SCHREIBER APRN May 25, 2020 13:39 KALPESH BERMUDEZ MD May 25, 2020 13:43
[2020-05-25] MEDS ORDERED: fentaNYL PF VIAL 100 MCG/2 ML VIAL ONE ×5 (14:23→17:14)
[2020-05-25] MEDS ORDERED: DEXAMETHASONE SOD PHOS 4 MG/ML VIAL ONE (14:37)
[2020-05-25] MEDS ORDERED: ONDANSETRON PF 4 MG/2 ML VIAL. ONE (14:37)
[2020-05-25] MEDS ORDERED: GLYCOPYRROLATE 1 MG/5 ML VIAL. ONE (14:38)
[2020-05-25] MEDS ORDERED: NEOSTIGMINE METHYLSULFATE 5 MG/5 ML SYRINGE. ONE ×2 (14:38→16:21)
[2020-05-25] MEDS ORDERED: ROCURONIUM 50 MG/5 ML VIAL. ONE ×2 (14:41→14:49)
[2020-05-25] MEDS ORDERED: MIDAZOLAM HCL/PF 2 MG/2 ML VIAL. ONE (14:42)
[2020-05-25] MEDS ORDERED: PROPOFOL 10 MG/ML (20ML) VIAL. IV ONE (14:44)
[2020-05-25] MEDS ORDERED: LIDOCAINE 2% PF 5 ML VIAL. ONE (14:44)
[2020-05-25] MEDS ORDERED: ACETAMINOPHEN 650 MG SUPP.RECT. PR PRN (14:45)
[2020-05-25] MEDS ORDERED: 0.9 % SODIUM CHLORIDE 10 ML DISP.SYRIN. IV PRN (14:45)
[2020-05-25] MEDS ORDERED: diphenhydrAMINE 50 MG/ML VIAL IVP PRN (14:45)
[2020-05-25] MEDS ORDERED: HALOPERIDOL LACTATE 5 MG/ML VIAL. IVP PRN (14:45)
[2020-05-25] MEDS ORDERED: ALBUTEROL SULFATE 2.5 MG/3 ML NEBU. NEB PRN (14:45)
--- NOTE | 2020-05-25 16:30 | PDOC4 ---
Operative Note Operative Note Operative Note: Preoperative Diagnosis: Perforated viscus, incarcerate ventral hernia Postoperative Diagnosis: Perforated gastric ulcer, incarcerated ventral hernia (containing fat) Procedure: Laparoscopic repair of perforated gastric ulcer, repair of incarcerated ventral hernia Surgeon: David Proctologist: Jamel ROBERTO Anesthesia: Gen EBL: 20 ml Specimen: Hernia contents to pathology Drains: 19 Fr WADE drain Complications: None Indication: The patient is a 39-year-old male who presented with abdominal pain. His evaluation identified free air concerning for perforated viscus. In addition he has an incarcerated ventral hernia containing fat. We recommend proceeding to the operating room for laparoscopy. He understands the possible need for laparotomy and other risks of surgery include bleeding, infection, recurrent hernia, pain, visceral injury, recurrent ulcer, anesthetic risk, potential need for additional surgery procedure. He understands and would like to proceed. Description: The patient was taken to the operating room and placed supine on the operating table. General anesthesia was performed. The abdomen was prepped with ChloraPrep and draped in a standard surgical manner. A small infraumbilical incision was made in the skin through which a Veress needle was inserted and a pneumoperitoneum was created. A visualized 5 mm trocar was inserted and the laparoscope was introduced. The patient did have omentum extending into the incarcerated ventral hernia which was in the midline superior to the umbilicus. In addition there was turbid fluid with inflammatory change around the stomach consistent with perforated viscus. In the left abdomen an 11 mm trocar was inserted and in the right abdomen a 5 mm trocar was inserted. Inspection of the stomach showed an obvious perforation site in the anterior portion of the distal body. The omentum was reduced out of the ventral hernia without difficulty. We then proceeded with a laparoscopic primary repair of the gastric ulcer. Interrupted 2-0 Vicryl sutures were placed including a reinforcing serosal layer. The entire abdominal cavity was then irrigated with sterile saline and all contamination was suctioned. We noted some additional incarcerated preperitoneal fat and sac which was excised from the hernia defect using the harmonic scalpel. This was placed in a specimen bag and extracted and sent to pathology. A 19 Ethiopian WADE drain was left over the distal stomach with an exit site in the right lateral port incision. This was secured to the skin with 2-0 silk. The fascia at the 11 mm trocar site was closed with 0 Vicryl using an Endo Close. The pneumoperitoneum was then relieved. A small incision was made in the upper mid abdomen overlying the area of the hernia defect. Cautery dissection was carried down to the fascia. Primary fascial repair of the hernia was performed. Mesh was not used due to the gross contamination of the abdominal cavity. The hernia defect was small and the fascia was approximated with interrupted 0 Prolene. The subcutaneous tissue was closed with 3-0 Vicryl. The skin at all incisions was closed with 4-0 Monocryl. Sterile dressings were then applied. The patient tolerated the procedure well and was sent to the recovery room in stable condition. At the end of the case all counts were correct. KALPESH BERMUDEZ MD May 25, 2020 16:30
[2020-05-25] MEDS: fentaNYL PF VIAL 100 MCG/2 ML VIAL IV PRN ×4 (16:44→20:11)
[2020-05-25] MEDS ORDERED: HYDROmorphone 2 MG/ML VIAL IVP PRN (16:45)
[2020-05-25] MEDS: PIPERACILLIN/TAZOBACTAM 3.375 GM in IV NORMAL SALINE 50ML 50 ML IV SCH ×2 (18:18→23:41)
[2020-05-25] MEDS: PANTOPRAZOLE SODIUM IV DRIP 80 MG in IV NORMAL SALINE 100ML 100 ML IV SCH (19:30)
[2020-05-25] MEDS: PHENOL ORAL SPRAY 177ML BOTTLE. PO PRN ×2 (21:31→23:18)
[2020-05-26] MEDS: fentaNYL PF VIAL 100 MCG/2 ML VIAL IV PRN ×2 (02:47→09:13)
[2020-05-26] MEDS: PHENOL ORAL SPRAY 177ML BOTTLE. PO PRN (02:48)
[2020-05-26 03:00] VITALS: BP 118/80
[2020-05-26] MEDS: IV NORMAL SALINE 1000ML BAG 1,000 ML IV SCH ×5 (03:26→23:08)
[2020-05-26] MEDS: PIPERACILLIN/TAZOBACTAM 3.375 GM in IV NORMAL SALINE 50ML 50 ML IV SCH ×4 (06:00→23:46)
[2020-05-26] MEDS: PANTOPRAZOLE SODIUM IV DRIP 80 MG in IV NORMAL SALINE 100ML 100 ML IV SCH (07:00)
[2020-05-26 07:15] VITALS: BP 112/79
[2020-05-26] MEDS ORDERED: PANTOPRAZOLE IV PUSH 40 MG VIAL. IVP SCH (07:30)
--- NOTE | 2020-05-26 07:55 | EKG ---
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
--- NOTE | 2020-05-26 08:07 | NUR ---
system down, see paper charting.
--- NOTE | 2020-05-26 08:41 | PDOC ---
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 05/26/20 0841: SURGICAL PROGRESS NOTE Subjective resting having pain wants to eat/go home Vital Signs Vital Signs Date Time Temp Pulse Resp B/P (MAP) Pulse Ox O2 Delivery O2 Flow Rate FiO2 05/26/20 07:15 98.7 75 20 112/79 (90) 99 Room Air 98.7 05/25/20 16:36 2 I&O Intake and Output 05/26/20 07:00 Intake Total 4850 ml Output Total 1550 ml Balance 3300 ml Intake IV Total 4850 ml Output Urine Total 1500 ml Drainage Total 30 ml Estimated Blood Loss 20 ml General: Cooperative, No acute distress HEENT: Other (ng in place) Abdomen: Soft, Other (drain serosang, lap sites dry) Labs Laboratory Tests Test 05/25/20 10:35 05/25/20 10:37 05/25/20 11:48 05/25/20 13:00 Urine Collection Type Void Urine Color Shakira Urine Clarity Clear Urine pH 6.0 (<5.0-8.0) Urine Specific [place] 1.020 (1.000-1.030) Urine Protein Negative mg/dL (NEG-TRACE) Urine Glucose (UA) Negative mg/dL (NEG) Urine Ketones (Stick) Trace mg/dL (NEG) Urine Blood Negative (NEG) Urine Nitrite Negative (NEG) Urine Bilirubin Small (NEG) Urine Urobilinogen Dipstick 0.2 mg/dL (0.2 mg/dL) Urine Leukocyte Esterase Negative (NEG) Urine RBC 0 /HPF (0-2) Urine WBC Occ /HPF (0-4) Urine Squamous Epithelial Cells Occ /LPF Urine Bacteria 0 /HPF (0-FEW) Urine Mucus Mod /LPF Urine Opiates Screen Neg (NEG) Urine Methadone Screen Neg (NEG) Urine Barbiturates Neg (NEG) Urine Phencyclidine Screen Neg (NEG) Urine Amphetamine/Methamphetamine Pos (NEG) Urine Benzodiazepines Screen Neg (NEG) Urine Cocaine Screen Neg (NEG) Urine Cannabinoids Screen Pos (NEG) Urine Ethyl Alcohol Pos (NEG) White Blood Count 11.5 x10^3/uL (4.0-11.0) Red Blood Count 5.20 x10^6/uL (4.30-5.70) Hemoglobin 15.9 g/dL (13.0-17.5) Hematocrit 45.0 % (39.0-53.0) Mean Corpuscular Volume 87 fL (79-100) Mean Corpuscular Hemoglobin 31 pg (25-35) Mean Corpuscular Hemoglobin Concent 35 g/dL (31-37) Red Cell Distribution Width 13.9 % (11.5-14.5) Platelet Count 505 x10^3/uL (140-400) Neutrophils (%) (Auto) 79 % (31-73) Lymphocytes (%) (Auto) 14 % (24-48) Monocytes (%) (Auto) 6 % (0-9) Eosinophils (%) (Auto) 1 % (0-3) Basophils (%) (Auto) 1 % (0-3) Neutrophils # (Auto) 9.1 x10^3/uL (1.8-7.7) Lymphocytes # (Auto) 1.6 x10^3/uL (1.0-4.8) Monocytes # (Auto) 0.6 x10^3/uL (0.0-1.1) Eosinophils # (Auto) 0.1 x10^3/uL (0.0-0.7) Basophils # (Auto) 0.1 x10^3/uL (0.0-0.2) Prothrombin Time 12.9 SEC (11.7-14.0) Prothromb Time International Ratio 1.0 (0.8-1.1) Sodium Level 138 mmol/L (136-145) Potassium Level 3.7 mmol/L (3.5-5.1) Chloride Level 98 mmol/L (98-107) Carbon Dioxide Level 27 mmol/L (21-32) Anion Gap 13 (6-14) Blood Urea Nitrogen 9 mg/dL (8-26) Creatinine 0.9 mg/dL (0.7-1.3) Estimated GFR (Cockcroft-Gault) 93.5 BUN/Creatinine Ratio 10 (6-20) Glucose Level 131 mg/dL (70-99) Calcium Level 9.2 mg/dL (8.5-10.1) Magnesium Level 2.4 mg/dL (1.8-2.4) Total Bilirubin 1.1 mg/dL (0.2-1.0) Aspartate Amino Transf (AST/SGOT) 50 U/L (15-37) Alanine Aminotransferase (ALT/SGPT) 42 U/L (16-63) Alkaline Phosphatase 83 U/L (46-116) Troponin I Quantitative < 0.017 ng/mL (0.000-0.055) Total Protein 7.7 g/dL (6.4-8.2) Albumin 4.1 g/dL (3.4-5.0) Albumin/Globulin Ratio 1.1 (1.0-1.7) Lipase 111 U/L (73-393) Ethyl Alcohol Level 25 mg/dL (0-10) Lactic Acid Level 1.4 mmol/L (0.4-2.0) Coronavirus (COVID-19)(PCR) Negative (NEGATIVE) Laboratory Tests Test 05/25/20 10:35 05/25/20 10:37 05/25/20 11:48 05/25/20 13:00 Urine Collection Type Void Urine Color Shakira Urine Clarity Clear Urine pH 6.0 (<5.0-8.0) Urine Specific [place] 1.020 (1.000-1.030) Urine Protein Negative mg/dL (NEG-TRACE) Urine Glucose (UA) Negative mg/dL (NEG) Urine Ketones (Stick) Trace mg/dL (NEG) Urine Blood Negative (NEG) Urine Nitrite Negative (NEG) Urine Bilirubin Small (NEG) Urine Urobilinogen Dipstick 0.2 mg/dL (0.2 mg/dL) Urine Leukocyte Esterase Negative (NEG) Urine RBC 0 /HPF (0-2) Urine WBC Occ /HPF (0-4) Urine Squamous Epithelial Cells Occ /LPF Urine Bacteria 0 /HPF (0-FEW) Urine Mucus Mod /LPF Urine Opiates Screen Neg (NEG) Urine Methadone Screen Neg (NEG) Urine Barbiturates Neg (NEG) Urine Phencyclidine Screen Neg (NEG) Urine Amphetamine/Methamphetamine Pos (NEG) Urine Benzodiazepines Screen Neg (NEG) Urine Cocaine Screen Neg (NEG) Urine Cannabinoids Screen Pos (NEG) Urine Ethyl Alcohol Pos (NEG) White Blood Count 11.5 x10^3/uL (4.0-11.0) Red Blood Count 5.20 x10^6/uL (4.30-5.70) Hemoglobin 15.9 g/dL (13.0-17.5) Hematocrit 45.0 % (39.0-53.0) Mean Corpuscular Volume 87 fL (79-100) Mean Corpuscular Hemoglobin 31 pg (25-35) Mean Corpuscular Hemoglobin Concent 35 g/dL (31-37) Red Cell Distribution Width 13.9 % (11.5-14.5) Platelet Count 505 x10^3/uL (140-400) Neutrophils (%) (Auto) 79 % (31-73) Lymphocytes (%) (Auto) 14 % (24-48) Monocytes (%) (Auto) 6 % (0-9) Eosinophils (%) (Auto) 1 % (0-3) Basophils (%) (Auto) 1 % (0-3) Neutrophils # (Auto) 9.1 x10^3/uL (1.8-7.7) Lymphocytes # (Auto) 1.6 x10^3/uL (1.0-4.8) Monocytes # (Auto) 0.6 x10^3/uL (0.0-1.1) Eosinophils # (Auto) 0.1 x10^3/uL (0.0-0.7) Basophils # (Auto) 0.1 x10^3/uL (0.0-0.2) Prothrombin Time 12.9 SEC (11.7-14.0) Prothromb Time International Ratio 1.0 (0.8-1.1) Sodium Level 138 mmol/L (136-145) Potassium Level 3.7 mmol/L (3.5-5.1) Chloride Level 98 mmol/L (98-107) Carbon Dioxide Level 27 mmol/L (21-32) Anion Gap 13 (6-14) Blood Urea Nitrogen 9 mg/dL (8-26) Creatinine 0.9 mg/dL (0.7-1.3) Estimated GFR (Cockcroft-Gault) 93.5 BUN/Creatinine Ratio 10 (6-20) Glucose Level 131 mg/dL (70-99) Calcium Level 9.2 mg/dL (8.5-10.1) Magnesium Level 2.4 mg/dL (1.8-2.4) Total Bilirubin 1.1 mg/dL (0.2-1.0) Aspartate Amino Transf (AST/SGOT) 50 U/L (15-37) Alanine Aminotransferase (ALT/SGPT) 42 U/L (16-63) Alkaline Phosphatase 83 U/L (46-116) Troponin I Quantitative < 0.017 ng/mL (0.000-0.055) Total Protein 7.7 g/dL (6.4-8.2) Albumin 4.1 g/dL (3.4-5.0) Albumin/Globulin Ratio 1.1 (1.0-1.7) Lipase 111 U/L (73-393) Ethyl Alcohol Level 25 mg/dL (0-10) Lactic Acid Level 1.4 mmol/L (0.4-2.0) Coronavirus (COVID-19)(PCR) Negative (NEGATIVE) Problem List Problems Medical Problems: (1) Pneumoperitoneum Status: Acute (2) Strangulated epigastric hernia Status: Acute Assessment/Plan repair perf gastric ulcer/repair of hernia continue NG, bowel rest, abx, drain, PPI Justicifation of Admission Dx: Justifications for Admission: Justification of Admission Dx: Yes KALPESH BERMUDEZ MD 05/26/20 0850: SURGICAL PROGRESS NOTE Assessment/Plan Agree with above HANS SCHREIBER APRN May 26, 2020 08:41 KALPESH BERMUDEZ MD May 26, 2020 08:50
[2020-05-26 08:48] LABS: BASO % 0 % (0-3); EOS % 0 % (0-3); HEMATOCRIT 38.5 % (39.0-53.0); LYMPH # 0.8 x10^3/uL (1.0-4.8); LYMPH % 6 % (24-48); MEAN CORPUSCULAR HEMOGLOBIN 30 pg (25-35); MEAN CORPUSCULAR HGB CONC 34 g/dL (31-37); MEAN CORPUSCULAR VOLUME 89 fL (79-100); MONO # 0.9 x10^3/uL (0.0-1.1); MONO % 6 % (0-9); NEUT # 13.1 x10^3/uL (1.8-7.7); NEUT % 88 % (31-73); PLATELET COUNT 406 x10^3/uL (140-400); RED BLOOD COUNT 4.32 x10^6/uL (4.30-5.70); RED CELL DISTRIBUTION WIDTH 14.5 % (11.5-14.5); WHITE BLOOD COUNT 14.8 x10^3/uL (4.0-11.0)
[2020-05-26] MEDS: MULTIVIT INFUSN,ADULT 4,VIT K 10 ML, THIAMINE INJ 100 MG, FOLIC ACID INJ 1 MG in IV NOR... IV SCH (09:09)
--- NOTE | 2020-05-26 09:39 | PDOC2 ---
GI CONSULT Reason For Consult: bowel perf, severe alcohol abuse HPI: HPI: 39 y/o Polish-speaking male to ER yesterday w/ acute onset abdominal pain. CT noted pneumoperitoneum and upper abd hernia. Now s/p laparoscopic repair of perforated gastric ulcer and repair of incarcerated ventral hernia w/ Dr. Hernandez. D/w nurse - asking to eat, says he wants to go home, doesn't like SCDs. H/o substance abuse. PMH: PMH: negative except for HPI Social History: Smoke: <1 pack per day ALCOHOL: heavy (12 pack daily) Drugs: Marijuana, Crystal meth ROS: Per HPI. Vitals: Vitals: Vital Signs Date Time Temp Pulse Resp B/P (MAP) Pulse Ox O2 Delivery O2 Flow Rate FiO2 05/26/20 09:13 Room Air 05/26/20 07:15 98.7 75 20 112/79 (90) 99 98.7 05/25/20 16:36 2 Labs: Labs: Laboratory Tests Test 05/25/20 10:35 05/25/20 10:37 05/25/20 11:48 05/25/20 13:00 Urine Collection Type Void Urine Color [place] Urine Clarity Clear Urine pH 6.0 (<5.0-8.0) Urine Specific [place] 1.020 (1.000-1.030) Urine Protein Negative mg/dL (NEG-TRACE) Urine Glucose (UA) Negative mg/dL (NEG) Urine Ketones (Stick) Trace mg/dL (NEG) Urine Blood Negative (NEG) Urine Nitrite Negative (NEG) Urine Bilirubin Small (NEG) Urine Urobilinogen Dipstick 0.2 mg/dL (0.2 mg/dL) Urine Leukocyte Esterase Negative (NEG) Urine RBC 0 /HPF (0-2) Urine WBC Occ /HPF (0-4) Urine Squamous Epithelial Cells Occ /LPF Urine Bacteria 0 /HPF (0-FEW) Urine Mucus Mod /LPF Urine Opiates Screen Neg (NEG) Urine Methadone Screen Neg (NEG) Urine Barbiturates Neg (NEG) Urine Phencyclidine Screen Neg (NEG) Urine Amphetamine/Methamphetamine Pos (NEG) Urine Benzodiazepines Screen Neg (NEG) Urine Cocaine Screen Neg (NEG) Urine Cannabinoids Screen Pos (NEG) Urine Ethyl Alcohol Pos (NEG) White Blood Count 11.5 x10^3/uL (4.0-11.0) Red Blood Count 5.20 x10^6/uL (4.30-5.70) Hemoglobin 15.9 g/dL (13.0-17.5) Hematocrit 45.0 % (39.0-53.0) Mean Corpuscular Volume 87 fL (79-100) Mean Corpuscular Hemoglobin 31 pg (25-35) Mean Corpuscular Hemoglobin Concent 35 g/dL (31-37) Red Cell Distribution Width 13.9 % (11.5-14.5) Platelet Count 505 x10^3/uL (140-400) Neutrophils (%) (Auto) 79 % (31-73) Lymphocytes (%) (Auto) 14 % (24-48) Monocytes (%) (Auto) 6 % (0-9) Eosinophils (%) (Auto) 1 % (0-3) Basophils (%) (Auto) 1 % (0-3) Neutrophils # (Auto) 9.1 x10^3/uL (1.8-7.7) Lymphocytes # (Auto) 1.6 x10^3/uL (1.0-4.8) Monocytes # (Auto) 0.6 x10^3/uL (0.0-1.1) Eosinophils # (Auto) 0.1 x10^3/uL (0.0-0.7) Basophils # (Auto) 0.1 x10^3/uL (0.0-0.2) Prothrombin Time 12.9 SEC (11.7-14.0) Prothromb Time International Ratio 1.0 (0.8-1.1) Sodium Level 138 mmol/L (136-145) Potassium Level 3.7 mmol/L (3.5-5.1) Chloride Level 98 mmol/L (98-107) Carbon Dioxide Level 27 mmol/L (21-32) Anion Gap 13 (6-14) Blood Urea Nitrogen 9 mg/dL (8-26) Creatinine 0.9 mg/dL (0.7-1.3) Estimated GFR (Cockcroft-Gault) 93.5 BUN/Creatinine Ratio 10 (6-20) Glucose Level 131 mg/dL (70-99) Calcium Level 9.2 mg/dL (8.5-10.1) Magnesium Level 2.4 mg/dL (1.8-2.4) Total Bilirubin 1.1 mg/dL (0.2-1.0) Aspartate Amino Transf (AST/SGOT) 50 U/L (15-37) Alanine Aminotransferase (ALT/SGPT) 42 U/L (16-63) Alkaline Phosphatase 83 U/L (46-116) Troponin I Quantitative < 0.017 ng/mL (0.000-0.055) Total Protein 7.7 g/dL (6.4-8.2) Albumin 4.1 g/dL (3.4-5.0) Albumin/Globulin Ratio 1.1 (1.0-1.7) Lipase 111 U/L (73-393) Ethyl Alcohol Level 25 mg/dL (0-10) Lactic Acid Level 1.4 mmol/L (0.4-2.0) Coronavirus (COVID-19)(PCR) Negative (NEGATIVE) Test 05/26/20 05:05 White Blood Count 14.8 x10^3/uL (4.0-11.0) Red Blood Count 4.32 x10^6/uL (4.30-5.70) Hemoglobin 13.0 g/dL (13.0-17.5) Hematocrit 38.5 % (39.0-53.0) Mean Corpuscular Volume 89 fL (79-100) Mean Corpuscular Hemoglobin 30 pg (25-35) Mean Corpuscular Hemoglobin Concent 34 g/dL (31-37) Red Cell Distribution Width 14.5 % (11.5-14.5) Platelet Count 406 x10^3/uL (140-400) Neutrophils (%) (Auto) 88 % (31-73) Lymphocytes (%) (Auto) 6 % (24-48) Monocytes (%) (Auto) 6 % (0-9) Eosinophils (%) (Auto) 0 % (0-3) Basophils (%) (Auto) 0 % (0-3) Neutrophils # (Auto) 13.1 x10^3/uL (1.8-7.7) Lymphocytes # (Auto) 0.8 x10^3/uL (1.0-4.8) Monocytes # (Auto) 0.9 x10^3/uL (0.0-1.1) Eosinophils # (Auto) 0.0 x10^3/uL (0.0-0.7) Basophils # (Auto) 0.0 x10^3/uL (0.0-0.2) Allergies: Coded Allergies: No Known Drug Allergies (Unverified , 05/25/20) Medications: Current Medications Medications (Trade) Dose Ordered Sig/Lianne Route PRN Reason Start Time Stop Time Status Last Admin Dose Admin Sodium Chloride 1,000 ml @ 1,000 mls/hr Q1H IV 05/25/20 11:00 05/25/20 11:59 DC 05/25/20 11:04 Fentanyl Citrate (Fentanyl 2ml Vial) 50 mcg 1X ONCE IVP 05/25/20 11:00 05/25/20 11:01 DC 05/25/20 11:04 Ondansetron HCl (Zofran) 4 mg 1X ONCE IVP 05/25/20 11:00 05/25/20 11:01 DC 05/25/20 11:04 Pantoprazole Sodium (PROTONIX VIAL for IV PUSH) 40 mg 1X ONCE IVP 05/25/20 11:00 05/25/20 11:01 DC 05/25/20 11:04 Iohexol (Omnipaque 300 Mg/ml) 75 ml 1X ONCE IV 05/25/20 11:00 05/25/20 11:01 DC 05/25/20 11:17 Piperacillin Sod/ Tazobactam Sod 3.375 gm/Sodium Chloride 50 ml @ 100 mls/hr 1X ONCE IV 05/25/20 12:00 05/25/20 12:29 DC 05/25/20 11:54 Sodium Chloride 1,000 ml @ 1,000 mls/hr 1X ONCE IV 05/25/20 12:00 05/25/20 12:59 DC 05/25/20 11:53 Fentanyl Citrate (Fentanyl 2ml Vial) 50 mcg 1X ONCE IVP 05/25/20 12:00 05/25/20 12:01 DC 05/25/20 11:53 Fentanyl Citrate (Fentanyl 2ml Vial) 50 mcg PRN Q1HR PRN IV PAIN 05/25/20 12:15 05/26/20 12:14 05/26/20 09:13 Sodium Chloride 1,000 ml @ 125 mls/hr Q8H IV 05/25/20 13:00 05/26/20 12:59 05/26/20 03:26 Fentanyl Citrate (Fentanyl 2ml Vial) 50 mcg PRN Q5MIN PRN IV MODERATE TO SEVERE PAIN 05/25/20 13:30 05/25/20 21:00 DC 05/25/20 17:20 Ondansetron HCl (Zofran) 4 mg PRN Q4HRS PRN IV NAUSEA/VOMITING 05/25/20 14:45 05/25/20 23:14 Piperacillin Sod/ Tazobactam Sod 3.375 gm/Sodium Chloride 50 ml @ 100 mls/hr Q6HRS IV 05/25/20 18:00 05/26/20 06:00 Multivitamins 10 ml/Thiamine HCl 100 mg/Folic Acid 1 mg/Sodium Chloride 1,011.2 ml @ 100 mls/ hr DAILY IV 05/26/20 09:00 05/30/20 19:07 05/26/20 09:09 Pantoprazole Sodium 80 mg/ Sodium Chloride 100 ml @ 10 mls/hr Q10H IV 05/25/20 18:00 05/26/20 07:00 Hydromorphone HCl (Dilaudid) 0.2 mg PRN Q4HRS PRN IVP PAIN 05/25/20 16:45 05/25/20 23:40 Phenol (Chloraseptic) 1 spray PRN Q2HR PRN PO SORE THROAT 05/25/20 20:15 05/26/20 02:48 Imaging: Imaging: CXR 05/25 IMPRESSION: 1. No acute chest disease. CT A/P 05/25 Impression: 1. Small upper abdominal pneumoperitoneum, concerning for bowel perforation. 2. Multifocal small bowel wall thickening most prominent within the left mid abdomen with adjacent inflammatory changes and infiltration of the anterior mesentery, may relate to enteritis. 3. Upper abdominal anterior fat-containing hernia with infiltration of the fat, raising concern for strangulated hernia. 4. Small upper abdominal and pelvic ascites. 5. Mild gallbladder wall thickening with pericholecystic fluid, may relate to liver disease. If concern for right upper quadrant pain, ultrasound can better evaluate. PE: GEN: NAD HEENT: Atraumatic, PERRL LUNGS: CTAB HEART: RRR ABD: abd binder, NGT EXTREMITY: No edema SKIN: No rashes, no jaundice NEURO/PSYCH: A & O 3 A/P: A/P: Abd pain Leukocytosis Pneumoperitoneum S/p repair of perf and incarcerated VH +alcohol +cannabinoids +meth -- Continue per surgery, continue PPI. ISHA NICHOLE May 26, 2020 09:39
--- NOTE | 2020-05-26 09:51 | PDOC ---
PROGRESS NOTES History of Present Illness History of Present Illness VTE Prophylaxis Ordered VTE Prophylaxis Devices: Yes VTE Pharmacological Prophylaxi: Contraindicated Assessment/Plan Assessment/Plan Impression: 1 Acute abdominal pain se to # 2 . 2. Small upper abdominal pneumoperitoneum, concerning for bowel perforation. 3. Multifocal small bowel wall thickening most prominent within the left mid abdomen with adjacent inflammatory changes and infiltration of the anterior mesentery, may relate to enteritis. 4. Upper abdominal anterior fat-containing hernia with infiltration of the fat, raising concern for strangulated hernia. Anterior mesenteric edema. Fat-containing anterior upper abdominal wall hernia with infiltration of the fat raising concern for strangulation. Fascial defect measures 1.3 cm. Hernia measures approximately 3.6 x 3.8 cm. 5. Small upper abdominal and pelvic ascites. 6. Mild gallbladder wall thickening with pericholecystic fluid, may relate to liver disease. If concern for right upper quadrant pain, ultrasound can better evaluate. 7. severe alcohol abuse 8. methamphetamine abuse plan ADMIT GEN SURGERY CONSULT may require laparotomy, possible bowel resection NPO IV FLUIDS IV PROTONIX GI CONSULT CIWA PRECAUTIONS thiamine iv daily banana bag iv daily scd's Laparoscopic repair of perforated gastric ulcer, repair of incarcerated ventral hernia 05/25 39 min pt exam, chart review, > 50% of time spent with exam, chart review, pt care coordination Vitals Vitals Vital Signs Date Time Temp Pulse Resp B/P (MAP) Pulse Ox O2 Delivery O2 Flow Rate FiO2 05/26/20 09:13 Room Air 05/26/20 07:15 98.7 75 20 112/79 (90) 99 98.7 05/25/20 16:36 2 Physical Exam General: Alert, Cooperative, No acute distress Heart: Regular rate, Normal S1, Normal S2 Abdomen: Soft, Other (drain serosang, lap sites dry) Extremities: No cyanosis Skin: No rashes, No breakdown Labs LABS SPEC #: [id number] SRIKANTH: 05/25/20 STATUS: RES REQ #: [id number] RECD: 05/25/20-[address]: FILIPE NELSON APRN SOURCE: BLOOD ENTR: 05/25/20-[address]: KENDALL,STAFF SPDESC: NO PCP ORDERED: BCULT Procedure Result BLOOD CULTURE Preliminary NO GROWTH AFTER 1 DAY Operative Note Operative Note Operative Note: Preoperative Diagnosis: Perforated viscus, incarcerate ventral hernia Postoperative Diagnosis: Perforated gastric ulcer, incarcerated ventral hernia (containing fat) Procedure: Laparoscopic repair of perforated gastric ulcer, repair of i ncarcerated ventral hernia Surgeon: David State Assessed Properties Director: Jamel ROBERTO Anesthesia: Gen EBL: 20 ml Specimen: Hernia contents to pathology Technique: After the administration of intravenous contrast, CT imaging was performed of the abdomen and pelvis. Multiplanar images are reviewed. Exposure: One or more of the following individualized dose reduction techniques were utilized for this examination: 1. Automated exposure control 2. Adjustment of the mA and/or kV according to patient size 3. Use of iterative reconstruction technique. Comparison: None Findings: Lower chest: No consolidation or pleural effusion. Right lower lobe calcified nodule, likely prior granulomatous disease. Abdomen and pelvis: Small foci of pneumoperitoneum. Small perihepatic and perisplenic as well as pelvic free fluid. Mildly dilated fluid-filled loops of small bowel throughout the abdomen. No discrete condition point. Mild small bowel wall thickening most prominent within the left mid abdomen. Anterior mesenteric edema. Fat-containing anterior upper abdominal wall hernia with infiltration of the fat raising concern for strangulation. Fascial defect measures 1.3 cm. Hernia measures approximately 3.6 x 3.8 cm. The liver, spleen, adrenal glands, and pancreas are unremarkable. Normal appearance the kidneys. No hydronephrosis. Decompressed urinary bladder. Mild gallbladder wall thickening with pericholecystic fluid. No biliary ductal dilatation. Patent portal and hepatic veins. Normal appendix. Bones: No pathologic osseous lesions. Impression: 1. Small upper abdominal pneumoperitoneum, concerning for bowel perforation. 2. Multifocal small bowel wall thickening most prominent within the left mid abdomen with adjacent inflammatory changes and infiltration of the anterior mesentery, may relate to enteritis. 3. Upper abdominal anterior fat-containing hernia with infiltration of the fat, raising concern for strangulated hernia. 4. Small upper abdominal and pelvic ascites. 5. Mild gallbladder wall thickening with pericholecystic fluid, may relate to liver disease. If concern for right upper quadrant pain, ultrasound can better evaluate. FOR INTERNAL CODING PURPOSES Critical result: Findings discussed with FILIPE NELSON at 05/25/2020 11:34 AM. RESULT CODE: (C) Electronically signed by: Blaine Flores DO (05/25/2020 11:37 AM) [id number] Laboratory Tests Test 05/25/20 10:35 05/25/20 10:37 05/25/20 11:48 05/25/20 13:00 Urine Collection Type Void Urine Color Shakira Urine Clarity Clear Urine pH 6.0 (<5.0-8.0) Urine Specific [place] 1.020 (1.000-1.030) Urine Protein Negative mg/dL (NEG-TRACE) Urine Glucose (UA) Negative mg/dL (NEG) Urine Ketones (Stick) Trace mg/dL (NEG) Urine Blood Negative (NEG) Urine Nitrite Negative (NEG) Urine Bilirubin Small (NEG) Urine Urobilinogen Dipstick 0.2 mg/dL (0.2 mg/dL) Urine Leukocyte Esterase Negative (NEG) Urine RBC 0 /HPF (0-2) Urine WBC Occ /HPF (0-4) Urine Squamous Epithelial Cells Occ /LPF Urine Bacteria 0 /HPF (0-FEW) Urine Mucus Mod /LPF Urine Opiates Screen Neg (NEG) Urine Methadone Screen Neg (NEG) Urine Barbiturates Neg (NEG) Urine Phencyclidine Screen Neg (NEG) Urine Amphetamine/Methamphetamine Pos (NEG) Urine Benzodiazepines Screen Neg (NEG) Urine Cocaine Screen Neg (NEG) Urine Cannabinoids Screen Pos (NEG) Urine Ethyl Alcohol Pos (NEG) White Blood Count 11.5 x10^3/uL (4.0-11.0) Red Blood Count 5.20 x10^6/uL (4.30-5.70) Hemoglobin 15.9 g/dL (13.0-17.5) Hematocrit 45.0 % (39.0-53.0) Mean Corpuscular Volume 87 fL (79-100) Mean Corpuscular Hemoglobin 31 pg (25-35) Mean Corpuscular Hemoglobin Concent 35 g/dL (31-37) Red Cell Distribution Width 13.9 % (11.5-14.5) Platelet Count 505 x10^3/uL (140-400) Neutrophils (%) (Auto) 79 % (31-73) Lymphocytes (%) (Auto) 14 % (24-48) Monocytes (%) (Auto) 6 % (0-9) Eosinophils (%) (Auto) 1 % (0-3) Basophils (%) (Auto) 1 % (0-3) Neutrophils # (Auto) 9.1 x10^3/uL (1.8-7.7) Lymphocytes # (Auto) 1.6 x10^3/uL (1.0-4.8) Monocytes # (Auto) 0.6 x10^3/uL (0.0-1.1) Eosinophils # (Auto) 0.1 x10^3/uL (0.0-0.7) Basophils # (Auto) 0.1 x10^3/uL (0.0-0.2) Prothrombin Time 12.9 SEC (11.7-14.0) Prothromb Time International Ratio 1.0 (0.8-1.1) Sodium Level 138 mmol/L (136-145) Potassium Level 3.7 mmol/L (3.5-5.1) Chloride Level 98 mmol/L (98-107) Carbon Dioxide Level 27 mmol/L (21-32) Anion Gap 13 (6-14) Blood Urea Nitrogen 9 mg/dL (8-26) Creatinine 0.9 mg/dL (0.7-1.3) Estimated GFR (Cockcroft-Gault) 93.5 BUN/Creatinine Ratio 10 (6-20) Glucose Level 131 mg/dL (70-99) Calcium Level 9.2 mg/dL (8.5-10.1) Magnesium Level 2.4 mg/dL (1.8-2.4) Total Bilirubin 1.1 mg/dL (0.2-1.0) Aspartate Amino Transf (AST/SGOT) 50 U/L (15-37) Alanine Aminotransferase (ALT/SGPT) 42 U/L (16-63) Alkaline Phosphatase 83 U/L (46-116) Troponin I Quantitative < 0.017 ng/mL (0.000-0.055) Total Protein 7.7 g/dL (6.4-8.2) Albumin 4.1 g/dL (3.4-5.0) Albumin/Globulin Ratio 1.1 (1.0-1.7) Lipase 111 U/L (73-393) Ethyl Alcohol Level 25 mg/dL (0-10) Lactic Acid Level 1.4 mmol/L (0.4-2.0) Coronavirus (COVID-19)(PCR) Negative (NEGATIVE) Test 05/26/20 05:05 White Blood Count 14.8 x10^3/uL (4.0-11.0) Red Blood Count 4.32 x10^6/uL (4.30-5.70) Hemoglobin 13.0 g/dL (13.0-17.5) Hematocrit 38.5 % (39.0-53.0) Mean Corpuscular Volume 89 fL (79-100) Mean Corpuscular Hemoglobin 30 pg (25-35) Mean Corpuscular Hemoglobin Concent 34 g/dL (31-37) Red Cell Distribution Width 14.5 % (11.5-14.5) Platelet Count 406 x10^3/uL (140-400) Neutrophils (%) (Auto) 88 % (31-73) Lymphocytes (%) (Auto) 6 % (24-48) Monocytes (%) (Auto) 6 % (0-9) Eosinophils (%) (Auto) 0 % (0-3) Basophils (%) (Auto) 0 % (0-3) Neutrophils # (Auto) 13.1 x10^3/uL (1.8-7.7) Lymphocytes # (Auto) 0.8 x10^3/uL (1.0-4.8) Monocytes # (Auto) 0.9 x10^3/uL (0.0-1.1) Eosinophils # (Auto) 0.0 x10^3/uL (0.0-0.7) Basophils # (Auto) 0.0 x10^3/uL (0.0-0.2) Assessment and Plan Assessmemt and Plan Problems Medical Problems: (1) Pneumoperitoneum Status: Acute (2) Strangulated epigastric hernia Status: Acute Comment Review of Relevant I have reviewed the following items elsa (where applicable) has been applied. Labs Laboratory Tests Test 05/25/20 10:35 05/25/20 10:37 05/25/20 11:48 05/25/20 13:00 Urine Collection Type Void Urine Color Shakira Urine Clarity Clear Urine pH 6.0 (<5.0-8.0) Urine Specific [place] 1.020 (1.000-1.030) Urine Protein Negative mg/dL (NEG-TRACE) Urine Glucose (UA) Negative mg/dL (NEG) Urine Ketones (Stick) Trace mg/dL (NEG) Urine Blood Negative (NEG) Urine Nitrite Negative (NEG) Urine Bilirubin Small (NEG) Urine Urobilinogen Dipstick 0.2 mg/dL (0.2 mg/dL) Urine Leukocyte Esterase Negative (NEG) Urine RBC 0 /HPF (0-2) Urine WBC Occ /HPF (0-4) Urine Squamous Epithelial Cells Occ /LPF Urine Bacteria 0 /HPF (0-FEW) Urine Mucus Mod /LPF Urine Opiates Screen Neg (NEG) Urine Methadone Screen Neg (NEG) Urine Barbiturates Neg (NEG) Urine Phencyclidine Screen Neg (NEG) Urine Amphetamine/Methamphetamine Pos (NEG) Urine Benzodiazepines Screen Neg (NEG) Urine Cocaine Screen Neg (NEG) Urine Cannabinoids Screen Pos (NEG) Urine Ethyl Alcohol Pos (NEG) White Blood Count 11.5 x10^3/uL (4.0-11.0) Red Blood Count 5.20 x10^6/uL (4.30-5.70) Hemoglobin 15.9 g/dL (13.0-17.5) Hematocrit 45.0 % (39.0-53.0) Mean Corpuscular Volume 87 fL (79-100) Mean Corpuscular Hemoglobin 31 pg (25-35) Mean Corpuscular Hemoglobin Concent 35 g/dL (31-37) Red Cell Distribution Width 13.9 % (11.5-14.5) Platelet Count 505 x10^3/uL (140-400) Neutrophils (%) (Auto) 79 % (31-73) Lymphocytes (%) (Auto) 14 % (24-48) Monocytes (%) (Auto) 6 % (0-9) Eosinophils (%) (Auto) 1 % (0-3) Basophils (%) (Auto) 1 % (0-3) Neutrophils # (Auto) 9.1 x10^3/uL (1.8-7.7) Lymphocytes # (Auto) 1.6 x10^3/uL (1.0-4.8) Monocytes # (Auto) 0.6 x10^3/uL (0.0-1.1) Eosinophils # (Auto) 0.1 x10^3/uL (0.0-0.7) Basophils # (Auto) 0.1 x10^3/uL (0.0-0.2) Prothrombin Time 12.9 SEC (11.7-14.0) Prothromb Time International Ratio 1.0 (0.8-1.1) Sodium Level 138 mmol/L (136-145) Potassium Level 3.7 mmol/L (3.5-5.1) Chloride Level 98 mmol/L (98-107) Carbon Dioxide Level 27 mmol/L (21-32) Anion Gap 13 (6-14) Blood Urea Nitrogen 9 mg/dL (8-26) Creatinine 0.9 mg/dL (0.7-1.3) Estimated GFR (Cockcroft-Gault) 93.5 BUN/Creatinine Ratio 10 (6-20) Glucose Level 131 mg/dL (70-99) Calcium Level 9.2 mg/dL (8.5-10.1) Magnesium Level 2.4 mg/dL (1.8-2.4) Total Bilirubin 1.1 mg/dL (0.2-1.0) Aspartate Amino Transf (AST/SGOT) 50 U/L (15-37) Alanine Aminotransferase (ALT/SGPT) 42 U/L (16-63) Alkaline Phosphatase 83 U/L (46-116) Troponin I Quantitative < 0.017 ng/mL (0.000-0.055) Total Protein 7.7 g/dL (6.4-8.2) Albumin 4.1 g/dL (3.4-5.0) Albumin/Globulin Ratio 1.1 (1.0-1.7) Lipase 111 U/L (73-393) Ethyl Alcohol Level 25 mg/dL (0-10) Lactic Acid Level 1.4 mmol/L (0.4-2.0) Coronavirus (COVID-19)(PCR) Negative (NEGATIVE) Test 05/26/20 05:05 White Blood Count 14.8 x10^3/uL (4.0-11.0) Red Blood Count 4.32 x10^6/uL (4.30-5.70) Hemoglobin 13.0 g/dL (13.0-17.5) Hematocrit 38.5 % (39.0-53.0) Mean Corpuscular Volume 89 fL (79-100) Mean Corpuscular Hemoglobin 30 pg (25-35) Mean Corpuscular Hemoglobin Concent 34 g/dL (31-37) Red Cell Distribution Width 14.5 % (11.5-14.5) Platelet Count 406 x10^3/uL (140-400) Neutrophils (%) (Auto) 88 % (31-73) Lymphocytes (%) (Auto) 6 % (24-48) Monocytes (%) (Auto) 6 % (0-9) Eosinophils (%) (Auto) 0 % (0-3) Basophils (%) (Auto) 0 % (0-3) Neutrophils # (Auto) 13.1 x10^3/uL (1.8-7.7) Lymphocytes # (Auto) 0.8 x10^3/uL (1.0-4.8) Monocytes # (Auto) 0.9 x10^3/uL (0.0-1.1) Eosinophils # (Auto) 0.0 x10^3/uL (0.0-0.7) Basophils # (Auto) 0.0 x10^3/uL (0.0-0.2) Laboratory Tests Test 05/25/20 10:35 7/13/20 10:37 05/25/20 11:48 05/25/20 13:00 Urine Collection Type Void Urine Color [place]akira Urine Clarity Clear Urine pH 6.0 (<5.0-8.0) Urine Specific [place] 1.020 (1.000-1.030) Urine Protein Negative mg/dL (NEG-TRACE) Urine Glucose (UA) Negative mg/dL (NEG) Urine Ketones (Stick) Trace mg/dL (NEG) Urine Blood Negative (NEG) Urine Nitrite Negative (NEG) Urine Bilirubin Small (NEG) Urine Urobilinogen Dipstick 0.2 mg/dL (0.2 mg/dL) Urine Leukocyte Esterase Negative (NEG) Urine RBC 0 /HPF (0-2) Urine WBC Occ /HPF (0-4) Urine Squamous Epithelial Cells Occ /LPF Urine Bacteria 0 /HPF (0-FEW) Urine Mucus Mod /LPF Urine Opiates Screen Neg (NEG) Urine Methadone Screen Neg (NEG) Urine Barbiturates Neg (NEG) Urine Phencyclidine Screen Neg (NEG) Urine Amphetamine/Methamphetamine Pos (NEG) Urine Benzodiazepines Screen Neg (NEG) Urine Cocaine Screen Neg (NEG) Urine Cannabinoids Screen Pos (NEG) Urine Ethyl Alcohol Pos (NEG) White Blood Count 11.5 x10^3/uL (4.0-11.0) Red Blood Count 5.20 x10^6/uL (4.30-5.70) Hemoglobin 15.9 g/dL (13.0-17.5) Hematocrit 45.0 % (39.0-53.0) Mean Corpuscular Volume 87 fL (79-100) Mean Corpuscular Hemoglobin 31 pg (25-35) Mean Corpuscular Hemoglobin Concent 35 g/dL (31-37) Red Cell Distribution Width 13.9 % (11.5-14.5) Platelet Count 505 x10^3/uL (140-400) Neutrophils (%) (Auto) 79 % (31-73) Lymphocytes (%) (Auto) 14 % (24-48) Monocytes (%) (Auto) 6 % (0-9) Eosinophils (%) (Auto) 1 % (0-3) Basophils (%) (Auto) 1 % (0-3) Neutrophils # (Auto) 9.1 x10^3/uL (1.8-7.7) Lymphocytes # (Auto) 1.6 x10^3/uL (1.0-4.8) Monocytes # (Auto) 0.6 x10^3/uL (0.0-1.1) Eosinophils # (Auto) 0.1 x10^3/uL (0.0-0.7) Basophils # (Auto) 0.1 x10^3/uL (0.0-0.2) Prothrombin Time 12.9 SEC (11.7-14.0) Prothromb Time International Ratio 1.0 (0.8-1.1) Sodium Level 138 mmol/L (136-145) Potassium Level 3.7 mmol/L (3.5-5.1) Chloride Level 98 mmol/L (98-107) Carbon Dioxide Level 27 mmol/L (21-32) Anion Gap 13 (6-14) Blood Urea Nitrogen 9 mg/dL (8-26) Creatinine 0.9 mg/dL (0.7-1.3) Estimated GFR (Cockcroft-Gault) 93.5 BUN/Creatinine Ratio 10 (6-20) Glucose Level 131 mg/dL (70-99) Calcium Level 9.2 mg/dL (8.5-10.1) Magnesium Level 2.4 mg/dL (1.8-2.4) Total Bilirubin 1.1 mg/dL (0.2-1.0) Aspartate Amino Transf (AST/SGOT) 50 U/L (15-37) Alanine Aminotransferase (ALT/SGPT) 42 U/L (16-63) Alkaline Phosphatase 83 U/L (46-116) Troponin I Quantitative < 0.017 ng/mL (0.000-0.055) Total Protein 7.7 g/dL (6.4-8.2) Albumin 4.1 g/dL (3.4-5.0) Albumin/Globulin Ratio 1.1 (1.0-1.7) Lipase 111 U/L (73-393) Ethyl Alcohol Level 25 mg/dL (0-10) Lactic Acid Level 1.4 mmol/L (0.4-2.0) Coronavirus (COVID-19)(PCR) Negative (NEGATIVE) Test 05/26/20 05:05 White Blood Count 14.8 x10^3/uL (4.0-11.0) Red Blood Count 4.32 x10^6/uL (4.30-5.70) Hemoglobin 13.0 g/dL (13.0-17.5) Hematocrit 38.5 % (39.0-53.0) Mean Corpuscular Volume 89 fL (79-100) Mean Corpuscular Hemoglobin 30 pg (25-35) Mean Corpuscular Hemoglobin Concent 34 g/dL (31-37) Red Cell Distribution Width 14.5 % (11.5-14.5) Platelet Count 406 x10^3/uL (140-400) Neutrophils (%) (Auto) 88 % (31-73) Lymphocytes (%) (Auto) 6 % (24-48) Monocytes (%) (Auto) 6 % (0-9) Eosinophils (%) (Auto) 0 % (0-3) Basophils (%) (Auto) 0 % (0-3) Neutrophils # (Auto) 13.1 x10^3/uL (1.8-7.7) Lymphocytes # (Auto) 0.8 x10^3/uL (1.0-4.8) Monocytes # (Auto) 0.9 x10^3/uL (0.0-1.1) Eosinophils # (Auto) 0.0 x10^3/uL (0.0-0.7) Basophils # (Auto) 0.0 x10^3/uL (0.0-0.2) Medications Current Medications Sodium Chloride 1,000 ml @ 1,000 mls/hr Q1H IV Last administered on 05/25/20at 11:04; Start 05/25/20 at 11:00; Stop 05/25/20 at 11:59; Status DC Fentanyl Citrate (Fentanyl 2ml Vial) 50 mcg 1X ONCE IVP Last administered on 05/25/20at 11:04; Start 05/25/20 at 11:00; Stop 05/25/20 at 11:01; Status DC Ondansetron HCl (Zofran) 4 mg 1X ONCE IVP Last administered on 05/25/20at 11:04; Start 05/25/20 at 11:00; Stop 05/25/20 at 11:01; Status DC Pantoprazole Sodium (PROTONIX VIAL for IV PUSH) 40 mg 1X ONCE IVP Last administered on 05/25/20at 11:04; Start 05/25/20 at 11:00; Stop 05/25/20 at 11:01; Status DC Iohexol (Omnipaque 300 Mg/ml) 75 ml 1X ONCE IV Last administered on 05/25/20at 11:17; Start 05/25/20 at 11:00; Stop 05/25/20 at 11:01; Status DC Piperacillin Sod/ Tazobactam Sod 3.375 gm/Sodium Chloride 50 ml @ 100 mls/hr 1X ONCE IV Last administered on 05/25/20at 11:54; Start 05/25/20 at 12:00; Stop 05/25/20 at 12:29; Status DC Sodium Chloride 1,000 ml @ 1,000 mls/hr 1X ONCE IV Last administered on 05/25/20at 11:53; Start 05/25/20 at 12:00; Stop 05/25/20 at 12:59; Status DC Fentanyl Citrate (Fentanyl 2ml Vial) 50 mcg 1X ONCE IVP Last administered on 05/25/20at 11:53; Start 05/25/20 at 12:00; Stop 05/25/20 at 12:01; Status DC Ondansetron HCl (Zofran) 4 mg PRN Q8HRS PRN IV NAUSEA/VOMITING; Start 05/25/20 at 12:15; Stop 05/25/20 at 14:55; Status DC Fentanyl Citrate (Fentanyl 2ml Vial) 50 mcg PRN Q1HR PRN IV PAIN Last administered on 05/26/20at 09:13; Start 05/25/20 at 12:15; Stop 05/26/20 at 12:14 Sodium Chloride 1,000 ml @ 125 mls/hr Q8H IV Last administered on 05/26/20at 03:26; Start 05/25/20 at 13:00; Stop 05/26/20 at 12:59 Ondansetron HCl (Zofran) 4 mg PRN Q6HRS PRN IV NAUSEA/VOMITING; Start 05/25/20 at 13:30; Stop 05/25/20 at 21:00; Status DC Fentanyl Citrate (Fentanyl 2ml Vial) 25 mcg PRN Q5MIN PRN IV MILD PAIN 1-3; Start 05/25/20 at 13:30; Stop 05/25/20 at 21:00; Status DC Fentanyl Citrate (Fentanyl 2ml Vial) 50 mcg PRN Q5MIN PRN IV MODERATE TO SEVERE PAIN Last administered on 05/25/20at 17:20; Start 05/25/20 at 13:30; Stop 05/25/20 at 21:00; Status DC Morphine Sulfate (Morphine Sulfate) 1 mg PRN Q10MIN PRN IV SEVERE PAIN 7-10; Start 05/25/20 at 13:30; Stop 05/25/20 at 21:00; Status DC Ringer's Solution 1,000 ml @ 30 mls/hr Q24H IV ; Start 05/25/20 at 13:30; Stop 05/25/20 at 18:00; Status DC Lidocaine HCl (Xylocaine-Mpf 1% 2ml Vial) 2 ml PRN 1X PRN ID PRIOR TO IV START; Start 05/25/20 at 13:30; Stop 05/25/20 at 18:00; Status DC Hydromorphone HCl (Dilaudid) 0.5 mg PRN Q10MIN PRN IV SEV PAIN, Second choice; Start 05/25/20 at 13:30; Stop 05/25/20 at 21:00; Status DC Prochlorperazine Edisylate (Compazine) 5 mg PACU PRN PRN IV NAUSEA, MRX1; St art 05/25/20 at 13:30; Stop 05/25/20 at 21:00; Status DC Fentanyl Citrate (Fentanyl 2ml Vial) 100 mcg STK-MED ONCE .ROUTE ; Start 05/25/20 at 14:23; Stop 05/25/20 at 14:24; Status DC Ondansetron HCl (Zofran) 4 mg STK-MED ONCE .ROUTE ; Start 05/25/20 at 14:37; Stop 05/25/20 at 14:37; Status DC Dexamethasone Sodium Phosphate (Decadron) 4 mg STK-MED ONCE .ROUTE ; Start 05/25/20 at 14:37; Stop 05/25/20 at 14:37; Status DC Neostigmine [place] (Neostigmine Methylsulfate) 5 mg STK-MED ONCE .ROUTE ; Start 05/25/20 at 14:38; Stop 05/25/20 at 14:39; Status DC Glycopyrrolate (Robinul) 1 mg STK-MED ONCE .ROUTE ; Start 05/25/20 at 14:38; St op 05/25/20 at 14:39; Status DC Rocuronium [place] (Zemuron) 50 mg STK-MED ONCE .ROUTE ; Start 05/25/20 at 14:41; Stop 05/25/20 at 14:42; Status DC Fentanyl Citrate (Fentanyl 2ml Vial) 100 mcg STK-MED ONCE .ROUTE ; Start 05/25/20 at 14:42; Stop 05/25/20 at 14:42; Status DC Sodium Chloride (Normal Saline Flush) 3 ml QSHIFT PRN IV AFTER MEDS AND BLOOD DRAWS; Start 05/25/20 at 14:45 Sodium Chloride 1,000 ml @ 130 mls/hr Q7H42M IV ; Start 05/25/20 at 15:00 Ondansetron HCl (Zofran) 4 mg PRN Q4HRS PRN IV NAUSEA/VOMITING Last administered on 05/25/20at 23:14; Start 05/25/20 at 14:45 Acetaminophen (Tylenol Supp) 650 mg PRN Q4HRS PRN OK TEMP OVER 100.4F OR MILD PAIN; Start 05/25/20 at 14:45 Albuterol Sulfate (Ventolin Neb Soln) 2.5 mg PRN Q4HRS PRN NEB SHORTNESS OF BREATH; Start 05/25/20 at 14:45 Piperacillin Sod/ Tazobactam Sod 3.375 gm/Sodium Chloride 50 ml @ 100 mls/hr Q6HRS IV Last administered on 05/26/20at 06:00; Start 05/25/20 at 18:00 Midazolam HCl (Versed) 2 mg STK-MED ONCE .ROUTE ; Start 05/25/20 at 14:42; Stop 05/25/20 at 14:42; Status DC Pantoprazole Sodium (PROTONIX VIAL for IV PUSH) 40 mg DAILYAC IVP ; Start 05/26/20 at 07:30; Status Cancel Propofol (Diprivan) 200 mg STK-MED ONCE IV ; Start 05/25/20 at 14:44; Stop 05/25/20 at 14:44; Status DC Lidocaine HCl (Lidocaine Pf 2% Vial) 5 ml STK-MED ONCE .ROUTE ; Start 05/25/20 at 14:44; Stop 05/25/20 at 14:44; Status DC Multivitamins 10 ml/Thiamine HCl 100 mg/Folic Acid 1 mg/Sodium Chloride 1,011.2 ml @ 100 mls/ hr DAILY IV Last administered on 05/26/20at 09:09; Start 05/26/20 at 09:00; Stop 05/30/20 at 19:07 Thiamine HCl (Thiamine Im) 100 mg DAILY IM ; Start 05/30/20 at 09:00; Stop 06/04/20 at 08:59; Status UNV Thiamine HCl 100 mg/Dextrose 51 ml @ 100 mls/hr DAILY IV ; Start 05/30/20 at 09:00; Stop 06/03/20 at 09:31; Status UNV Lorazepam (Ativan Inj) 2 mg PRN Q1HR PRN IV For CIWA 8-14; Start 05/25/20 at 14:45 Lorazepam (Ativan Inj) 4 mg PRN Q1HR PRN IV For CIWA 15 or greater; Start 05/25/20 at 14:45 Haloperidol Lactate (Haldol Inj) 5 mg PRN Q4HRS PRN IVP Hallucinatns,Confusn,Delirium; Start 05/25/20 at 14:45 Diphenhydramine HCl (Benadryl) 25 mg PRN Q15MIN PRN IVP EPS symptoms 2'Haldol admin; Start 05/25/20 at 14:45 Lorazepam (Ativan Inj) 2 mg PRN Q15MIN PRN IV SEE COMMENTS; Start 05/25/20 at 14:45; Status UNV Lorazepam (Ativan Inj) 4 mg PRN Q15MIN PRN IV SEE COMMENTS; Start 05/25/20 at 14:45; Status UNV Rocuronium [place] (Zemuron) 50 mg STK-MED ONCE .ROUTE ; Start 05/25/20 at 14:49; Stop 05/25/20 at 14:49; Status DC Pantoprazole Sodium (PROTONIX VIAL for IV PUSH) 40 mg 1X ONCE IVP ; Start 05/25/20 at 15:00; Stop 05/25/20 at 15:01; Status DC Fentanyl Citrate (Fentanyl 2ml Vial) 100 mcg STK-MED ONCE .ROUTE ; Start 05/25/20 at 15:21; Stop 05/25/20 at 15:22; Status DC Neostigmine [place] (Neostigmine Methylsulfate) 5 mg STK-MED ONCE .ROUTE ; Start 05/25/20 at 16:21; Stop 05/25/20 at 16:21; Status DC Pantoprazole Sodium 80 mg/ Sodium Chloride 100 ml @ 10 mls/hr Q10H IV Last administered on 05/26/20at 07:00; Start 05/25/20 at 18:00; Stop 05/26/20 at 09:40; Status DC Hydromorphone HCl (Dilaudid) 0.2 mg PRN Q4HRS PRN IVP PAIN Last administered on 05/25/20at 23:40; Start 05/25/20 at 16:45 Hydromorphone HCl (Dilaudid) 1 mg PRN Q4HRS PRN IVP PAIN; Start 05/25/20 at 16:45 Fentanyl Citrate (Fentanyl 2ml Vial) 100 mcg STK-MED ONCE .ROUTE ; Start 05/25/20 at 16:42; Stop 05/25/20 at 16:42; Status DC Fentanyl Citrate (Fentanyl 2ml Vial) 100 mcg STK-MED ONCE .ROUTE ; Start 05/25/20 at 17:14; Stop 05/25/20 at 17:14; Status DC Phenol (Chloraseptic) 1 spray PRN Q2HR PRN PO SORE THROAT Last administered on 05/26/20at 02:48; Start 05/25/20 at 20:15 Pantoprazole Sodium (PROTONIX VIAL for IV PUSH) 40 mg BIDAC IVP ; Start 05/26/20 at 16:30 Vitals/I & O Vital Sign - Last 24 Hours 05/25/20 05/25/20 05/25/20 05/25/20 10:15 10:33 11:03 11:04 Temp 97.5 97.5 Pulse 75 78 78 Resp 20 26 16 19 B/P (MAP) 154/101 (118) 145/100 (115) 129/92 (104) Pulse Ox 100 100 100 100 O2 Delivery Room Air Room Air Room Air Room Air 05/25/20 05/25/20 05/25/20 05/25/20 11:34 11:38 11:53 12:08 Pulse 88 92 Resp 19 17 18 15 B/P (MAP) 135/86 (102) 149/92 (111) Pulse Ox 97 100 100 100 O2 Delivery Room Air Room Air Room Air Room Air 05/25/20 05/25/20 05/25/20 05/25/20 12:23 12:38 13:08 16:26 Temp 97 97.0 Pulse 94 100 93 Resp 17 16 17 18 B/P (MAP) 140/89 (106) 124/84 (97) 131/97 Pulse Ox 96 100 100 99 O2 Delivery Room Air Room Air Room Air Simple Mask O2 Flow Rate 6 05/25/20 05/25/20 05/25/20 05/25/20 16:30 16:36 16:44 16:51 Temp 97.0 97.0 97.0 97.0 Pulse 87 87 Resp 20 20 20 B/P (MAP) 148/100 148/99 Pulse Ox 98 98 98 O2 Delivery Nasal Cannula Room Air Room Air O2 Flow Rate 6 2 05/25/20 05/25/20 05/25/20 05/25/20 16:54 17:06 17:20 17:21 Temp 97.0 97.0 97.0 97.0 Pulse 84 84 Resp 20 16 18 18 B/P (MAP) 155/97 146/87 Pulse Ox 98 98 98 97 O2 Delivery Room Air Room Air Room Air Room Air 05/25/20 05/25/20 05/25/20 05/25/20 17:30 17:45 17:50 18:00 Temp 98.0 98.0 Pulse 85 88 95 Resp 18 B/P (MAP) 143/94 (110) 138/94 (109) 133/96 (108) Pulse Ox 97 98 99 O2 Delivery Room Air Room Air Room Air Room Air 05/25/20 05/25/20 05/25/20 05/25/20 18:04 18:15 18:30 19:00 Temp 98.5 98.5 Pulse 93 93 87 Resp 18 B/P (MAP) 136/95 (109) 130/92 (105) 124/89 (101) Pulse Ox 98 98 99 O2 Delivery Room Air Room Air Room Air Room Air 05/25/20 05/25/20 05/25/20 05/25/20 19:30 20:00 20:11 20:30 Pulse 97 93 Resp 18 20 18 B/P (MAP) 131/94 (106) 126/96 (106) Pulse Ox 99 98 99 O2 Delivery Room Air Room Air Room Air Room Air 7/13/05/25/20 05/25/20 05/25/20 20:41 21:30 23:00 23:40 Temp 98.2 98.2 Pulse 93 107 Resp 20 18 18 B/P (MAP) 122/87 (99) 126/90 (102) Pulse Ox 99 100 98 99 O2 Delivery Room Air Room Air Room Air Room Air 05/26/20 05/26/20 05/26/20 05/26/20 00:10 02:47 03:00 03:17 Temp 98.8 98.8 Pulse 84 Resp 18 18 18 B/P (MAP) 118/80 (93) Pulse Ox 99 99 99 99 O2 Delivery Room Air Room Air Room Air Room Air 05/26/20 05/26/20 07:15 09:13 Temp 98.7 98.7 Pulse 75 Resp 20 B/P (MAP) 112/79 (90) Pulse Ox 99 O2 Delivery Room Air Room Air Intake and Output 05/25/20 05/25/20 05/26/20 15:00 23:00 07:00 Intake Total 2050 ml 2800 ml Output Total 650 ml 150 ml 750 ml Balance 1400 ml 2650 ml -750 ml Justicifation of Admission Dx: Justifications for Admission: Justification of Admission Dx: Yes Sepsis: Infection MARIO BLOOM MD May 26, 2020 09:51
[2020-05-26 10:15] LABS: ALBUMIN 2.8 g/dL (3.4-5.0); ALBUMIN/GLOBULIN RATIO 0.8 (1.0-1.7); CALCIUM 8.4 mg/dL (8.5-10.1); CREATININE 0.9 mg/dL (0.7-1.3); GFR 93.5; TOTAL BILIRUBIN 2.5 mg/dL (0.2-1.0); TOTAL PROTEIN 6.4 g/dL (6.4-8.2)
[2020-05-26 10:48] VITALS: BP 119/72
--- NOTE | 2020-05-26 11:33 | NUR ---
SW following. Discussed with RN, pt from home, gets around fine, pt is [place] speaking only. RN reported pt drinks 1-2 boxes of beer everyday for dinner, does meth every other day with friends, and smokes marijuana every day. FELIPE spoke with Dr. Enriquez, PAT consult requested. FELIPE notified Milady with PAT. HC following for self pay status. FELIPE will continue to follow. Addendum: 05/26/20 at 1427 by BIPIN WANG Michael (SLIME) met with pt, pt declined meth use despite positive tox screen. Pt denies any addiction or problem with drinking or drug use/abuse. PT advised he uses cocaine not meth. No SI or HI, no hx of mental health. Pt was provided with resources for [employer], [employer] and [employer] for 05/06 crisis. Pt was strongly advised to use any or all of these resources. FELIPE will continue to follow. RN notified.
[2020-05-26 12:09] LABS: % BANDS 39 % (0-9); % LYMPHS 9 % (24-48); % METAS 4 % (0-0); % MONOS 5 % (0-10); % SEGS 43 % (35-66); PLT ESTIMATE INCREASED (ADEQUATE)
[2020-05-26] MEDS: HYDROmorphone 2 MG/ML VIAL IVP PRN ×2 (12:22→23:07)
[2020-05-26 14:45] VITALS: BP 110/70
[2020-05-26] MEDS: PANTOPRAZOLE IV PUSH 40 MG VIAL. IVP SCH (16:49)
--- NOTE | 2020-05-26 18:01 | NUR ---
Patient called RN into room. Patient stated he coughed and NG tube came out. GS cellular phone repairer Dr. lopez. Awaiting call back.
--- NOTE | 2020-05-26 18:06 | NUR ---
Dr. Good called back. Order to leave NG out and keep patient NPO.
[2020-05-26 19:50] VITALS: BP 117/89
[2020-05-26 23:32] VITALS: BP 110/82
[2020-05-27] MEDS: HYDROmorphone 2 MG/ML VIAL IVP PRN ×3 (03:04→19:46)
[2020-05-27 03:10] VITALS: BP 130/97
[2020-05-27] MEDS: PIPERACILLIN/TAZOBACTAM 3.375 GM in IV NORMAL SALINE 50ML 50 ML IV SCH ×4 (05:57→23:46)
[2020-05-27] MEDS: IV NORMAL SALINE 1000ML BAG 1,000 ML IV SCH ×3 (05:58→20:31)
[2020-05-27 07:00] VITALS: BP 130/93
--- NOTE | 2020-05-27 08:25 | NUR ---
SW following. Discussed with RN, pt wanting to go home - possibly will be determined on whether WADE drain can be removed or not. Pt NPO and did have an NG tube, however this fell out last night when pt apparently coughed. Pt has been clear by PAT. SW will continue to follow.
[2020-05-27] MEDS: PANTOPRAZOLE IV PUSH 40 MG VIAL. IVP SCH ×2 (08:29→17:06)
[2020-05-27] MEDS: MULTIVIT INFUSN,ADULT 4,VIT K 10 ML, THIAMINE INJ 100 MG, FOLIC ACID INJ 1 MG in IV NOR... IV SCH (08:29)
--- NOTE | 2020-05-27 08:51 | PDOC ---
PROGRESS NOTES History of Present Illness History of Present Illness VTE Prophylaxis Ordered VTE Prophylaxis Devices: Yes VTE Pharmacological Prophylaxi: Contraindicated Assessment/Plan Assessment/Plan Impression: 1 Acute abdominal pain se to # 2 . 2. Small upper abdominal pneumoperitoneum, concerning for bowel perforation. 3. Multifocal small bowel wall thickening most prominent within the left mid abdomen with adjacent inflammatory changes and infiltration of the anterior mesentery, may relate to enteritis. 4. Upper abdominal anterior fat-containing hernia with infiltration of the fat, raising concern for strangulated hernia. Anterior mesenteric edema. Fat-containing anterior upper abdominal wall hernia with infiltration of the fat raising concern for strangulation. Fascial defect measures 1.3 cm. Hernia measures approximately 3.6 x 3.8 cm. 5. Small upper abdominal and pelvic ascites. 6. Mild gallbladder wall thickening with pericholecystic fluid, may relate to liver disease. If concern for right upper quadrant pain, ultrasound can better evaluate. 7. severe alcohol abuse 8. methamphetamine abuse plan ADMIT GEN SURGERY CONSULT may require laparotomy, possible bowel resection NPO IV FLUIDS IV PROTONIX GI CONSULT CIWA PRECAUTIONS thiamine iv daily banana bag iv daily scd's Laparoscopic repair of perforated gastric ulcer, repair of incarcerated ventral hernia 05/25 39 min pt exam, chart review, > 50% of time spent with exam, chart review, pt care coordination Vitals Vitals Vital Signs Date Time Temp Pulse Resp B/P (MAP) Pulse Ox O2 Delivery O2 Flow Rate FiO2 05/27/20 07:00 98.9 96 19 130/93 (105) 96 Room Air 98.9 Physical Exam General: Alert, Cooperative, No acute distress Heart: Regular rate, Normal S1, Normal S2 Abdomen: Soft, Other (drain serosang, lap sites dry) Extremities: No cyanosis Skin: No rashes, No breakdown Assessment and Plan Assessmemt and Plan Problems Medical Problems: (1) Pneumoperitoneum Status: Acute (2) Strangulated epigastric hernia Status: Acute Comment Review of Relevant I have reviewed the following items elsa (where applicable) has been applied. Labs Laboratory Tests Test 05/25/20 10:35 05/25/20 10:37 05/25/20 11:48 05/25/20 13:00 Urine Collection Type Void Urine Color Shakira Urine Clarity Clear Urine pH 6.0 (<5.0-8.0) Urine Specific [address] 1.020 (1.000-1.030) Urine Protein Negative mg/dL (NEG-TRACE) Urine Glucose (UA) Negative mg/dL (NEG) Urine Ketones (Stick) Trace mg/dL (NEG) Urine Blood Negative (NEG) Urine Nitrite Negative (NEG) Urine Bilirubin Small (NEG) Urine Urobilinogen Dipstick 0.2 mg/dL (0.2 mg/dL) Urine Leukocyte Esterase Negative (NEG) Urine RBC 0 /HPF (0-2) Urine WBC Occ /HPF (0-4) Urine Squamous Epithelial Cells Occ /LPF Urine Bacteria 0 /HPF (0-FEW) Urine Mucus Mod /LPF Urine Opiates Screen Neg (NEG) Urine Methadone Screen Neg (NEG) Urine Barbiturates Neg (NEG) Urine Phencyclidine Screen Neg (NEG) Urine Amphetamine/Methamphetamine Pos (NEG) Urine Benzodiazepines Screen Neg (NEG) Urine Cocaine Screen Neg (NEG) Urine Cannabinoids Screen Pos (NEG) Urine Ethyl Alcohol Pos (NEG) White Blood Count 11.5 x10^3/uL (4.0-11.0) Red Blood Count 5.20 x10^6/uL (4.30-5.70) Hemoglobin 15.9 g/dL (13.0-17.5) Hematocrit 45.0 % (39.0-53.0) Mean Corpuscular Volume 87 fL (79-100) Mean Corpuscular Hemoglobin 31 pg (25-35) Mean Corpuscular Hemoglobin Concent 35 g/dL (31-37) Red Cell Distribution Width 13.9 % (11.5-14.5) Platelet Count 505 x10^3/uL (140-400) Neutrophils (%) (Auto) 79 % (31-73) Lymphocytes (%) (Auto) 14 % (24-48) Monocytes (%) (Auto) 6 % (0-9) Eosinophils (%) (Auto) 1 % (0-3) Basophils (%) (Auto) 1 % (0-3) Neutrophils # (Auto) 9.1 x10^3/uL (1.8-7.7) Lymphocytes # (Auto) 1.6 x10^3/uL (1.0-4.8) Monocytes # (Auto) 0.6 x10^3/uL (0.0-1.1) Eosinophils # (Auto) 0.1 x10^3/uL (0.0-0.7) Basophils # (Auto) 0.1 x10^3/uL (0.0-0.2) Prothrombin Time 12.9 SEC (11.7-14.0) Prothromb Time International Ratio 1.0 (0.8-1.1) Sodium Level 138 mmol/L (136-145) Potassium Level 3.7 mmol/L (3.5-5.1) Chloride Level 98 mmol/L (98-107) Carbon Dioxide Level 27 mmol/L (21-32) Anion Gap 13 (6-14) Blood Urea Nitrogen 9 mg/dL (8-26) Creatinine 0.9 mg/dL (0.7-1.3) Estimated GFR (Cockcroft-Gault) 93.5 BUN/Creatinine Ratio 10 (6-20) Glucose Level 131 mg/dL (70-99) Calcium Level 9.2 mg/dL (8.5-10.1) Magnesium Level 2.4 mg/dL (1.8-2.4) Total Bilirubin 1.1 mg/dL (0.2-1.0) Aspartate Amino Transf (AST/SGOT) 50 U/L (15-37) Alanine Aminotransferase (ALT/SGPT) 42 U/L (16-63) Alkaline Phosphatase 83 U/L (46-116) Troponin I Quantitative < 0.017 ng/mL (0.000-0.055) Total Protein 7.7 g/dL (6.4-8.2) Albumin 4.1 g/dL (3.4-5.0) Albumin/Globulin Ratio 1.1 (1.0-1.7) Lipase 111 U/L (73-393) Ethyl Alcohol Level 25 mg/dL (0-10) Lactic Acid Level 1.4 mmol/L (0.4-2.0) Coronavirus (COVID-19)(PCR) Negative (NEGATIVE) Test 05/26/20 05:05 White Blood Count 14.8 x10^3/uL (4.0-11.0) Red Blood Count 4.32 x10^6/uL (4.30-5.70) Hemoglobin 13.0 g/dL (13.0-17.5) Hematocrit 38.5 % (39.0-53.0) Mean Corpuscular Volume 89 fL (79-100) Mean Corpuscular Hemoglobin 30 pg (25-35) Mean Corpuscular Hemoglobin Concent 34 g/dL (31-37) Red Cell Distribution Width 14.5 % (11.5-14.5) Platelet Count 406 x10^3/uL (140-400) Neutrophils (%) (Auto) 88 % (31-73) Lymphocytes (%) (Auto) 6 % (24-48) Monocytes (%) (Auto) 6 % (0-9) Eosinophils (%) (Auto) 0 % (0-3) Basophils (%) (Auto) 0 % (0-3) Neutrophils # (Auto) 13.1 x10^3/uL (1.8-7.7) Lymphocytes # (Auto) 0.8 x10^3/uL (1.0-4.8) Monocytes # (Auto) 0.9 x10^3/uL (0.0-1.1) Eosinophils # (Auto) 0.0 x10^3/uL (0.0-0.7) Basophils # (Auto) 0.0 x10^3/uL (0.0-0.2) Segmented Neutrophils % 43 % (35-66) Band Neutrophils % 39 % (0-9) Lymphocytes % 9 % (24-48) Monocytes % 5 % (0-10) Metamyelocytes % 4 % (0-0) Platelet Estimate Increased (ADEQUATE) Sodium Level 142 mmol/L (136-145) Potassium Level 4.0 mmol/L (3.5-5.1) Chloride Level 105 mmol/L (98-107) Carbon Dioxide Level 22 mmol/L (21-32) Anion Gap 15 (6-14) Blood Urea Nitrogen 9 mg/dL (8-26) Creatinine 0.9 mg/dL (0.7-1.3) Estimated GFR (Cockcroft-Gault) 93.5 BUN/Creatinine Ratio 10 (6-20) Glucose Level 104 mg/dL (70-99) Calcium Level 8.4 mg/dL (8.5-10.1) Total Bilirubin 2.5 mg/dL (0.2-1.0) Aspartate Amino Transf (AST/SGOT) 41 U/L (15-37) Alanine Aminotransferase (ALT/SGPT) 34 U/L (16-63) Alkaline Phosphatase 54 U/L (46-116) Total Protein 6.4 g/dL (6.4-8.2) Albumin 2.8 g/dL (3.4-5.0) Albumin/Globulin Ratio 0.8 (1.0-1.7) Microbiology 05/25/20 Blood Culture - Preliminary, Resulted NO GROWTH AFTER 1 DAY Medications Current Medications Sodium Chloride 1,000 ml @ 1,000 mls/hr Q1H IV Last administered on 05/25/20at 11:04; Start 05/25/20 at 11:00; Stop 05/25/20 at 11:59; Status DC Fentanyl Citrate (Fentanyl 2ml Vial) 50 mcg 1X ONCE IVP Last administered on 05/25/20 11:04; Start 05/25/20 at 11:00; Stop 05/25/20 at 11:01; Status DC Ondansetron HCl (Zofran) 4 mg 1X ONCE IVP Last administered on 05/25/20 11:04; Start 05/25/20 at 11:00; Stop 05/25/20 at 11:01; Status DC Pantoprazole Sodium (PROTONIX VIAL for IV PUSH) 40 mg 1X ONCE IVP Last administered on 05/25/20 11:04; Start 05/25/20 at 11:00; Stop 05/25/20 at 11:01; Status DC Iohexol (Omnipaque 300 Mg/ml) 75 ml 1X ONCE IV Last administered on 05/25/20 11:17; Start 05/25/20 at 11:00; Stop 05/25/20 at 11:01; Status DC Piperacillin Sod/ Tazobactam Sod 3.375 gm/Sodium Chloride 50 ml @ 100 mls/hr 1X ONCE IV Last administered on 05/25/20 11:54; Start 05/25/20 at 12:00; Stop 05/25/20 at 12:29; Status DC Sodium Chloride 1,000 ml @ 1,000 mls/hr 1X ONCE IV Last administered on 05/25/20 11:53; Start 05/25/20 at 12:00; Stop 05/25/20 at 12:59; Status DC Fentanyl Citrate (Fentanyl 2ml Vial) 50 mcg 1X ONCE IVP Last administered on 05/25/20at 11:53; Start 05/25/20 at 12:00; Stop 05/25/20 at 12:01; Status DC Ondansetron HCl (Zofran) 4 mg PRN Q8HRS PRN IV NAUSEA/VOMITING; Start 05/25/20 at 12:15; Stop 05/25/20 at 14:55; Status DC Fentanyl Citrate (Fentanyl 2ml Vial) 50 mcg PRN Q1HR PRN IV PAIN Last admin istered on 05/26/20at 09:13; Start 05/25/20 at 12:15; Stop 05/26/20 at 12:14; Status DC Sodium Chloride 1,000 ml @ 125 mls/hr Q8H IV Last administered on 05/26/20at 03:26; Start 05/25/20 at 13:00; Stop 05/26/20 at 12:59; Status DC Ondansetron HCl (Zofran) 4 mg PRN Q6HRS PRN IV NAUSEA/VOMITING; Start 05/25/20 at 13:30; Stop 05/25/20 at 21:00; Status DC Fentanyl Citrate (Fentanyl 2ml Vial) 25 mcg PRN Q5MIN PRN IV MILD PAIN 1-3; Start 05/25/20 at 13:30; Stop 05/25/20 at 21:00; Status DC Fentanyl Citrate (Fentanyl 2ml Vial) 50 mcg PRN Q5MIN PRN IV MODERATE TO SEVERE PAIN Last administered on 05/25/20at 17:20; Start 05/25/20 at 13:30; Stop 05/25/20 at 21:00; Status DC Morphine Sulfate (Morphine Sulfate) 1 mg PRN Q10MIN PRN IV SEVERE PAIN 7-10; Start 05/25/20 at 13:30; Stop 05/25/20 at 21:00; Status DC Ringer's Solution 1,000 ml @ 30 mls/hr Q24H IV ; Start 05/25/20 at 13:30; Stop 05/25/20 at 18:00; Status DC Lidocaine HCl (Xylocaine-Mpf 1% 2ml Vial) 2 ml PRN 1X PRN ID PRIOR TO IV START; Start 05/25/20 at 13:30; Stop 05/25/20 at 18:00; Status DC Hydromorphone HCl (Dilaudid) 0.5 mg PRN Q10MIN PRN IV SEV PAIN, Second choice; Start 05/25/20 at 13:30; Stop 05/25/20 at 21:00; Status DC Prochlorperazine Edisylate (Compazine) 5 mg PACU PRN PRN IV NAUSEA, MRX1; Start 05/25/20 at 13:30; Stop 05/25/20 at 21:00; Status DC Fentanyl Citrate (Fentanyl 2ml Vial) 100 mcg STK-MED ONCE .ROUTE ; Start 05/25/20 at 14:23; Stop 05/25/20 at 14:24; Status DC Ondansetron HCl (Zofran) 4 mg STK-MED ONCE .ROUTE ; Start 05/25/20 at 14:37; Stop 05/25/20 at 14:37; Status DC Dexamethasone Sodium Phosphate (Decadron) 4 mg STK-MED ONCE .ROUTE ; Start 05/25/20 at 14:37; Stop 05/25/20 at 14:37; Status DC Neostigmine [place] (Neostigmine Methylsulfate) 5 mg STK-MED ONCE .ROUTE ; Start 05/25/20 at 14:38; Stop 05/25/20 at 14:39; Status DC Glycopyrrolate (Robinul) 1 mg STK-MED ONCE .ROUTE ; Start 05/25/20 at 14:38; Stop 05/25/20 at 14:39; Status DC Rocuronium [place] (Zemuron) 50 mg STK-MED ONCE .ROUTE ; Start 05/25/20 at 14:41; Stop 05/25/20 at 14:42; Status DC Fentanyl Citrate (Fentanyl 2ml Vial) 100 mcg STK-MED ONCE .ROUTE ; Start 05/25/20 at 14:42; Stop 05/25/20 at 14:42; Status DC Sodium Chloride (Normal Saline Flush) 3 ml QSHIFT PRN IV AFTER MEDS AND BLOOD DRAWS; Start 05/25/20 at 14:45 Sodium Chloride 1,000 ml @ 130 mls/hr Q7H42M IV Last administered on 05/27/20at 05:58; Start 05/25/20 at 15:00 Ondansetron HCl (Zofran) 4 mg PRN Q4HRS PRN IV NAUSEA/VOMITING Last administered on 05/25/20at 23:14; Start 05/25/20 at 14:45 Acetaminophen (Tylenol Supp) 650 mg PRN Q4HRS PRN FL TEMP OVER 100.4F OR MILD PAIN; Start 05/25/20 at 14:45 Albuterol Sulfate (Ventolin Neb Soln) 2.5 mg PRN Q4HRS PRN NEB SHORTNESS OF BREATH; Start 05/25/20 at 14:45 Piperacillin Sod/ Tazobactam Sod 3.375 gm/Sodium Chloride 50 ml @ 100 mls/hr Q6HRS IV Last administered on 05/27/20at 05:57; Start 05/25/20 at 18:00 Midazolam HCl (Versed) 2 mg STK-MED ONCE .ROUTE ; Start 05/25/20 at 14:42; Stop 05/25/20 at 14:42; Status DC Pantoprazole Sodium (PROTONIX VIAL for IV PUSH) 40 mg DAILYAC IVP ; Start 05/26/20 at 07:30; Status Cancel Propofol (Diprivan) 200 mg STK-MED ONCE IV ; Start 05/25/20 at 14:44; Stop 05/25/20 at 14:44; Status DC Lidocaine HCl (Lidocaine Pf 2% Vial) 5 ml STK-MED ONCE .ROUTE ; Start 05/25/20 at 14:44; Stop 05/25/20 at 14:44; Status DC Multivitamins 10 ml/Thiamine HCl 100 mg/Folic Acid 1 mg/Sodium Chloride 1,011.2 ml @ 100 mls/ hr DAILY IV Last administered on 05/27/20at 08:29; Start 05/26/20 at 09:00; Stop 05/30/20 at 19:07 Thiamine HCl (Thiamine Im) 100 mg DAILY IM ; Start 05/30/20 at 09:00; Stop 06/04/20 at 08:59; Status UNV Thiamine HCl 100 mg/Dextrose 51 ml @ 100 mls/hr DAILY IV ; Start 05/30/20 at 09:00; Stop 06/03/20 at 09:31; Status UNV Lorazepam (Ativan Inj) 2 mg PRN Q1HR PRN IV For CIWA 8-14 Last administered on 05/26/20at 16:46; Start 05/25/20 at 14:45 Lorazepam (Ativan Inj) 4 mg PRN Q1HR PRN IV For CIWA 15 or greater; Start 05/25/20 at 14:45 Haloperidol Lactate (Haldol Inj) 5 mg PRN Q4HRS PRN IVP Hallucinatns,Confusn,Delirium; Start 05/25/20 at 14:45 Diphenhydramine HCl (Benadryl) 25 mg PRN Q15MIN PRN IVP EPS symptoms 2'Haldol admin; Start 05/25/20 at 14:45 Lorazepam (Ativan Inj) 2 mg PRN Q15MIN PRN IV SEE COMMENTS; Start 05/25/20 at 14:45; Status UNV Lorazepam (Ativan Inj) 4 mg PRN Q15MIN PRN IV SEE COMMENTS; Start 05/25/20 at 14:45; Status UNV Rocuronium [place] (Zemuron) 50 mg STK-MED ONCE .ROUTE ; Start 05/25/20 at 14:49; Stop 05/25/20 at 14:49; Status DC Pantoprazole Sodium (PROTONIX VIAL for IV PUSH) 40 mg 1X ONCE IVP ; Start 05/25/20 at 15:00; Stop 05/25/20 at 15:01; Status DC Fentanyl Citrate (Fentanyl 2ml Vial) 100 mcg STK-MED ONCE .ROUTE ; Start 05/25/20 at 15:21; Stop 05/25/20 at 15:22; Status DC Neostigmine [place] (Neostigmine Methylsulfate) 5 mg STK-MED ONCE .ROUTE ; Start 05/25/20 at 16:21; Stop 05/25/20 at 16:21; Status DC Pantoprazole Sodium 80 mg/ Sodium Chloride 100 ml @ 10 mls/hr Q10H IV Last administered on 05/26/20at 07:00; Start 05/25/20 at 18:00; Stop 05/26/20 at 09:40; Status DC Hydromorphone HCl (Dilaudid) 0.2 mg PRN Q4HRS PRN IVP PAIN Last administered on 05/25/20at 23:40; Start 05/25/20 at 16:45 Hydromorphone HCl (Dilaudid) 1 mg PRN Q4HRS PRN IVP PAIN Last administered on 05/27/20at 03:04; Start 05/25/20 at 16:45 Fentanyl Citrate (Fentanyl 2ml Vial) 100 mcg STK-MED ONCE .ROUTE ; Start 05/25/20 at 16:42; Stop 05/25/20 at 16:42; Status DC Fentanyl Citrate (Fentanyl 2ml Vial) 100 mcg STK-MED ONCE .ROUTE ; Start 05/25/20 at 17:14; Stop 05/25/20 at 17:14; Status DC Phenol (Chloraseptic) 1 spray PRN Q2HR PRN PO SORE THROAT Last administered on 05/26/20at 02:48; Start 05/25/20 at 20:15 Pantoprazole Sodium (PROTONIX VIAL for IV PUSH) 40 mg BIDAC IVP Last administered on 05/27/20at 08:29; Start 05/26/20 at 16:30 Vitals/I & O Vital Sign - Last 24 Hours 05/26/20 05/26/20 05/26/20 05/26/20 09:13 09:43 10:48 12:22 Temp 98.4 98.4 Pulse 77 Resp 19 B/P (MAP) 119/72 (88) Pulse Ox 99 O2 Delivery Room Air Room Air Room Air Room Air 05/26/20 05/26/20 05/26/20 05/26/20 12:52 14:45 19:50 20:00 Temp 98.4 99.0 98.4 99.0 Pulse 78 104 Resp 19 19 B/P (MAP) 110/70 (83) 117/89 (98) Pulse Ox 99 97 O2 Delivery Room Air Room Air Room Air Room Air 05/26/20 05/26/20 05/26/20 05/27/20 23:07 23:32 23:37 03:04 Temp 99.7 99.7 Pulse 107 Resp 18 16 18 16 B/P (MAP) 110/82 (91) Pulse Ox 97 95 95 95 O2 Delivery Room Air Room Air Room Air Room Air 05/27/20 05/27/20 05/27/20 03:10 03:34 07:00 Temp 98.9 98.9 98.9 98.9 Pulse 100 96 Resp 18 20 19 B/P (MAP) 130/97 (108) 130/93 (105) Pulse Ox 97 97 96 O2 Delivery Room Air Room Air Room Air Intake and Output 05/26/20 05/26/20 05/27/20 15:00 23:00 07:00 Intake Total 0 ml Output Total 1300 ml 1530 ml Balance -1300 ml -1530 ml Justicifation of Admission Dx: Justifications for Admission: Justification of Admission Dx: Yes Sepsis: Infection MARIO BLOOM MD May 27, 2020 08:51
--- NOTE | 2020-05-27 09:45 | PDOC ---
Subjective: Subjective: Asking to eat. Indicates "a little" abdominal pain. Objective: Objective: Reviewed chart - NG out. Vital Signs: Vital Signs Date Time Temp Pulse Resp B/P (MAP) Pulse Ox O2 Delivery O2 Flow Rate FiO2 05/27/20 07:00 98.9 96 19 130/93 (105) 96 Room Air 98.9 Labs: BLOOD CULTURE Preliminary NO GROWTH AFTER 1 DAY PE: GEN: NAD LUNGS: CTAB HEART: RRR ABD: quiet, binder, mild discomfort NEURO/PSYCH: A & O 3 A/P: S/p repair of perf and incarcerated [facility] Substance abuse -- Continue same per GI. Justicifation of Admission Dx: Justifications for Admission: Justification of Admission Dx: Yes Sepsis: Infection ISHA NICHOLE May 27, 2020 09:45
--- NOTE | 2020-05-27 09:58 | PDOC ---
[employer] 05/27/20 0958: SURGICAL PROGRESS NOTE Subjective hungry sore NG fell out Vital Signs Vital Signs Date Time Temp Pulse Resp B/P (MAP) Pulse Ox O2 Delivery O2 Flow Rate FiO2 05/27/20 07:00 98.9 96 19 130/93 (105) 96 Room Air 98.9 I&O Intake and Output 05/27/20 07:00 Intake Total 0 ml Output Total 2830 ml Balance -2830 ml Intake Oral 0 ml Output Urine Total 2750 ml Drainage Total 80 ml General: Alert, Oriented X3, Cooperative Abdomen: Soft, Other (dressing dry, klaudia serosang) Labs Laboratory Tests Test 05/25/20 10:35 05/25/20 10:37 05/25/20 11:48 05/25/20 13:00 Urine Collection Type Void Urine Color Shakira Urine Clarity Clear Urine pH 6.0 (<5.0-8.0) Urine Specific [place] 1.020 (1.000-1.030) Urine Protein Negative mg/dL (NEG-TRACE) Urine Glucose (UA) Negative mg/dL (NEG) Urine Ketones (Stick) Trace mg/dL (NEG) Urine Blood Negative (NEG) Urine Nitrite Negative (NEG) Urine Bilirubin Small (NEG) Urine Urobilinogen Dipstick 0.2 mg/dL (0.2 mg/dL) Urine Leukocyte Esterase Negative (NEG) Urine RBC 0 /HPF (0-2) Urine WBC Occ /HPF (0-4) Urine Squamous Epithelial Cells Occ /LPF Urine Bacteria 0 /HPF (0-FEW) Urine Mucus Mod /LPF Urine Opiates Screen Neg (NEG) Urine Methadone Screen Neg (NEG) Urine Barbiturates Neg (NEG) Urine Phencyclidine Screen Neg (NEG) Urine Amphetamine/Methamphetamine Pos (NEG) Urine Benzodiazepines Screen Neg (NEG) Urine Cocaine Screen Neg (NEG) Urine Cannabinoids Screen Pos (NEG) Urine Ethyl Alcohol Pos (NEG) White Blood Count 11.5 x10^3/uL (4.0-11.0) Red Blood Count 5.20 x10^6/uL (4.30-5.70) Hemoglobin 15.9 g/dL (13.0-17.5) Hematocrit 45.0 % (39.0-53.0) Mean Corpuscular Volume 87 fL (79-100) Mean Corpuscular Hemoglobin 31 pg (25-35) Mean Corpuscular Hemoglobin Concent 35 g/dL (31-37) Red Cell Distribution Width 13.9 % (11.5-14.5) Platelet Count 505 x10^3/uL (140-400) Neutrophils (%) (Auto) 79 % (31-73) Lymphocytes (%) (Auto) 14 % (24-48) Monocytes (%) (Auto) 6 % (0-9) Eosinophils (%) (Auto) 1 % (0-3) Basophils (%) (Auto) 1 % (0-3) Neutrophils # (Auto) 9.1 x10^3/uL (1.8-7.7) Lymphocytes # (Auto) 1.6 x10^3/uL (1.0-4.8) Monocytes # (Auto) 0.6 x10^3/uL (0.0-1.1) Eosinophils # (Auto) 0.1 x10^3/uL (0.0-0.7) Basophils # (Auto) 0.1 x10^3/uL (0.0-0.2) Prothrombin Time 12.9 SEC (11.7-14.0) Prothromb Time International Ratio 1.0 (0.8-1.1) Sodium Level 138 mmol/L (136-145) Potassium Level 3.7 mmol/L (3.5-5.1) Chloride Level 98 mmol/L (98-107) Carbon Dioxide Level 27 mmol/L (21-32) Anion Gap 13 (6-14) Blood Urea Nitrogen 9 mg/dL (8-26) Creatinine 0.9 mg/dL (0.7-1.3) Estimated GFR (Cockcroft-Gault) 93.5 BUN/Creatinine Ratio 10 (6-20) Glucose Level 131 mg/dL (70-99) Calcium Level 9.2 mg/dL (8.5-10.1) Magnesium Level 2.4 mg/dL (1.8-2.4) Total Bilirubin 1.1 mg/dL (0.2-1.0) Aspartate Amino Transf (AST/SGOT) 50 U/L (15-37) Alanine Aminotransferase (ALT/SGPT) 42 U/L (16-63) Alkaline Phosphatase 83 U/L (46-116) Troponin I Quantitative < 0.017 ng/mL (0.000-0.055) Total Protein 7.7 g/dL (6.4-8.2) Albumin 4.1 g/dL (3.4-5.0) Albumin/Globulin Ratio 1.1 (1.0-1.7) Lipase 111 U/L (73-393) Ethyl Alcohol Level 25 mg/dL (0-10) Lactic Acid Level 1.4 mmol/L (0.4-2.0) Coronavirus (COVID-19)(PCR) Negative (NEGATIVE) Test 05/26/20 05:05 White Blood Count 14.8 x10^3/uL (4.0-11.0) Red Blood Count 4.32 x10^6/uL (4.30-5.70) Hemoglobin 13.0 g/dL (13.0-17.5) Hematocrit 38.5 % (39.0-53.0) Mean Corpuscular Volume 89 fL (79-100) Mean Corpuscular Hemoglobin 30 pg (25-35) Mean Corpuscular Hemoglobin Concent 34 g/dL (31-37) Red Cell Distribution Width 14.5 % (11.5-14.5) Platelet Count 406 x10^3/uL (140-400) Neutrophils (%) (Auto) 88 % (31-73) Lymphocytes (%) (Auto) 6 % (24-48) Monocytes (%) (Auto) 6 % (0-9) Eosinophils (%) (Auto) 0 % (0-3) Basophils (%) (Auto) 0 % (0-3) Neutrophils # (Auto) 13.1 x10^3/uL (1.8-7.7) Lymphocytes # (Auto) 0.8 x10^3/uL (1.0-4.8) Monocytes # (Auto) 0.9 x10^3/uL (0.0-1.1) Eosinophils # (Auto) 0.0 x10^3/uL (0.0-0.7) Basophils # (Auto) 0.0 x10^3/uL (0.0-0.2) Segmented Neutrophils % 43 % (35-66) Band Neutrophils % 39 % (0-9) Lymphocytes % 9 % (24-48) Monocytes % 5 % (0-10) Metamyelocytes % 4 % (0-0) Platelet Estimate Increased (ADEQUATE) Sodium Level 142 mmol/L (136-145) Potassium Level 4.0 mmol/L (3.5-5.1) Chloride Level 105 mmol/L (98-107) Carbon Dioxide Level 22 mmol/L (21-32) Anion Gap 15 (6-14) Blood Urea Nitrogen 9 mg/dL (8-26) Creatinine 0.9 mg/dL (0.7-1.3) Estimated GFR (Cockcroft-Gault) 93.5 BUN/Creatinine Ratio 10 (6-20) Glucose Level 104 mg/dL (70-99) Calcium Level 8.4 mg/dL (8.5-10.1) Total Bilirubin 2.5 mg/dL (0.2-1.0) Aspartate Amino Transf (AST/SGOT) 41 U/L (15-37) Alanine Aminotransferase (ALT/SGPT) 34 U/L (16-63) Alkaline Phosphatase 54 U/L (46-116) Total Protein 6.4 g/dL (6.4-8.2) Albumin 2.8 g/dL (3.4-5.0) Albumin/Globulin Ratio 0.8 (1.0-1.7) Problem List Problems Medical Problems: (1) Pneumoperitoneum Status: Acute (2) Strangulated epigastric hernia Status: Acute Assessment/Plan POD#2 REPAIR perf gastric ulcer NPO, PPI, drain, abx Justicifation of Admission Dx: Justifications for Admission: Justification of Admission Dx: Yes Sepsis: Infection KALPESH BERMUDEZ MD 05/28/20 0712: SURGICAL PROGRESS NOTE Assessment/Plan agree with above H[employer] May 27, 2020 09:58 KALPESH BERMUDEZ MD May 28, 2020 07:12
[2020-05-27 11:05] VITALS: BP 139/95
[2020-05-27 15:03] VITALS: BP 146/103
--- NOTE | 2020-05-27 18:06 | PATHOLOGY ---
[facility] Accession Number: [id number] . 01 Material submitted: . hernia - INCARCERATED HERNIA CONTENTS . 01 Clinical history: . perforated viscus . 02 Diagnosis: Fibroadipose tissue, "incarcerated hernia contents": - Fragments of hernia contents revealing congestion consistent with incarcerated hernia. - There is no evidence of malignancy. . (SHA:mml; 05/27/2020) [facility] 05/27/2020 1542 Local . 02 Electronically signed: . Johnny Rangel MD, Pathologist NPI- [id number] . 01 Gross description: . The specimen is received in formalin, labeled "[place], Frank, incarcerated hernia contents" and consists of yellow lobulated tissue with attached hudson pink membranous tissue measuring 11.5 x 4.6 x 2.3 cm. Sectioning reveals focally fibrotic cut surfaces and no gross lesions. Cardiology Fellow sections are submitted in A1. (SDY; 05/26/2020) SYU/SYU 05/26/2020 1636 Local . 02 Pathologist provided ICD-10: K46.9 . 02 CPT . 978420 Specimen Comment: A courtesy copy of this report has been sent to [phone] Specimen Comment: [phone], Specimen Comment: Report sent to ,DR BLOOM / DR NELSON Performed at: 01 [facility] [address], [place] [id number] MD Ramesh Ferguson MD Phone: [phone] Performed at: 02 [facility] [address] [place], [place] [id number] MD Aroldo Serna MD Phone: [phone]
[2020-05-27 19:00] VITALS: BP 139/94
[2020-05-27 23:00] VITALS: BP 143/99
[2020-05-28 03:00] VITALS: BP 148/103
[2020-05-28] MEDS: HYDROmorphone 2 MG/ML VIAL IVP PRN ×2 (03:18→08:19)
[2020-05-28] MEDS: IV NORMAL SALINE 1000ML BAG 1,000 ML IV SCH ×3 (03:41→20:15)
[2020-05-28] MEDS: PIPERACILLIN/TAZOBACTAM 3.375 GM in IV NORMAL SALINE 50ML 50 ML IV SCH ×3 (06:30→18:30)
[2020-05-28 07:00] VITALS: BP 149/97
[2020-05-28] MEDS: MULTIVIT INFUSN,ADULT 4,VIT K 10 ML, THIAMINE INJ 100 MG, FOLIC ACID INJ 1 MG in IV NOR... IV SCH (08:18)
[2020-05-28] MEDS: PANTOPRAZOLE IV PUSH 40 MG VIAL. IVP SCH ×2 (08:18→16:46)
--- NOTE | 2020-05-28 08:22 | PDOC ---
PROGRESS NOTES History of Present Illness History of Present Illness VTE Prophylaxis Ordered VTE Prophylaxis Devices: Yes VTE Pharmacological Prophylaxi: Contraindicated Assessment/Plan Assessment/Plan Impression: 1 Acute abdominal pain se to # 3 . 2. Small upper abdominal pneumoperitoneum, concerning for bowel perforation. 3. Multifocal small bowel wall thickening most prominent within the left mid abdomen with adjacent inflammatory changes and infiltration of the anterior mesentery, may relate to enteritis. 4. Upper abdominal anterior fat-containing hernia with infiltration of the fat, raising concern for strangulated hernia. Anterior mesenteric edema. Fat-containing anterior upper abdominal wall hernia with infiltration of the fat raising concern for strangulation. Fascial defect measures 1.3 cm. Hernia measures approximately 3.6 x 3.8 cm. 5. Small upper abdominal and pelvic ascites. 6. Mild gallbladder wall thickening with pericholecystic fluid, may relate to liver disease. If concern for right upper quadrant pain, ultrasound can better evaluate. 7. severe alcohol abuse 8. methamphetamine abuse plan ADMIT GEN SURGERY CONSULT laparotomy, // bowel resection NPO IV FLUIDS IV PROTONIX GI CONSULT CIWA PRECAUTIONS thiamine iv daily banana bag iv daily scd's Laparoscopic repair of perforated gastric ulcer, repair of incarcerated ventral hernia 05/25 27 min pt exam, chart review, > 50% of time spent with exam, chart review, pt care coordination Vitals Vitals Vital Signs Date Time Temp Pulse Resp B/P (MAP) Pulse Ox O2 Delivery O2 Flow Rate FiO2 05/28/20 07:00 98.0 90 18 149/97 (114) 98 Room Air 98.0 Physical Exam General: Alert, Oriented X3, Cooperative, No acute distress Heart: Regular rate, Normal S1, Normal S2 Lungs: Clear Abdomen: Soft, Other (dressing dry, klaudia serosang binder in place) Extremities: No cyanosis Skin: No rashes, No breakdown Assessment and Plan Assessmemt and Plan Problems Medical Problems: (1) Pneumoperitoneum Status: Acute (2) Strangulated epigastric hernia Status: Acute Comment Review of Relevant I have reviewed the following items elsa (where applicable) has been applied. Labs Microbiology 05/25/20 Blood Culture - Preliminary, Resulted NO GROWTH AFTER 2 DAYS Medications Current Medications Sodium Chloride 1,000 ml @ 1,000 mls/hr Q1H IV Last administered on 05/25/20at 11:04; Start 05/25/20 at 11:00; Stop 05/25/20 at 11:59; Status DC Fentanyl Citrate (Fentanyl 2ml Vial) 50 mcg 1X ONCE IVP Last administered on 05/25/20at 11:04; Start 05/25/20 at 11:00; Stop 05/25/20 at 11:01; Status DC Ondansetron HCl (Zofran) 4 mg 1X ONCE IVP Last administered on 05/25/20at 11:04; Start 05/25/20 at 11:00; Stop 05/25/20 at 11:01; Status DC Pantoprazole Sodium (PROTONIX VIAL for IV PUSH) 40 mg 1X ONCE IVP Last administered on 05/25/20at 11:04; Start 05/25/20 at 11:00; Stop 05/25/20 at 11:01; Status DC Iohexol (Omnipaque 300 Mg/ml) 75 ml 1X ONCE IV Last administered on 05/25/20at 11:17; Start 05/25/20 at 11:00; Stop 05/25/20 at 11:01; Status DC Piperacillin Sod/ Tazobactam Sod 3.375 gm/Sodium Chloride 50 ml @ 100 mls/hr 1X ONCE IV Last administered on 05/25/20at 11:54; Start 05/25/20 at 12:00; Stop 05/25/20 at 12:29; Status DC Sodium Chloride 1,000 ml @ 1,000 mls/hr 1X ONCE IV Last administered on 05/25/20at 11:53; Start 05/25/20 at 12:00; Stop 05/25/20 at 12:59; Status DC Fentanyl Citrate (Fentanyl 2ml Vial) 50 mcg 1X ONCE IVP Last administered on 05/25/20at 11:53; Start 05/25/20 at 12:00; Stop 05/25/20 at 12:01; Status DC Ondansetron HCl (Zofran) 4 mg PRN Q8HRS PRN IV NAUSEA/VOMITING; Start 05/25/20 at 12:15; Stop 05/25/20 at 14:55; Status DC Fentanyl Citrate (Fentanyl 2ml Vial) 50 mcg PRN Q1HR PRN IV PAIN Last adm inistered on 05/26/20at 09:13; Start 05/25/20 at 12:15; Stop 05/26/20 at 12:14; Status DC Sodium Chloride 1,000 ml @ 125 mls/hr Q8H IV Last administered on 05/26/20at 03:26; Start 05/25/20 at 13:00; Stop 05/26/20 at 12:59; Status DC Ondansetron HCl (Zofran) 4 mg PRN Q6HRS PRN IV NAUSEA/VOMITING; Start 05/25/20 at 13:30; Stop 05/25/20 at 21:00; Status DC Fentanyl Citrate (Fentanyl 2ml Vial) 25 mcg PRN Q5MIN PRN IV MILD PAIN 1-3; Start 05/25/20 at 13:30; Stop 05/25/20 at 21:00; Status DC Fentanyl Citrate (Fentanyl 2ml Vial) 50 mcg PRN Q5MIN PRN IV MODERATE TO SEVERE PAIN Last administered on 05/25/20at 17:20; Start 05/25/20 at 13:30; Stop 05/25/20 at 21:00; Status DC Morphine Sulfate (Morphine Sulfate) 1 mg PRN Q10MIN PRN IV SEVERE PAIN 7-10; Start 05/25/20 at 13:30; Stop 05/25/20 at 21:00; Status DC Ringer's Solution 1,000 ml @ 30 mls/hr Q24H IV ; Start 05/25/20 at 13:30; Stop 05/25/20 at 18:00; Status DC Lidocaine HCl (Xylocaine-Mpf 1% 2ml Vial) 2 ml PRN 1X PRN ID PRIOR TO IV START; Start 05/25/20 at 13:30; Stop 05/25/20 at 18:00; Status DC Hydromorphone HCl (Dilaudid) 0.5 mg PRN Q10MIN PRN IV SEV PAIN, Second choice; Start 05/25/20 at 13:30; Stop 05/25/20 at 21:00; Status DC Prochlorperazine Edisylate (Compazine) 5 mg PACU PRN PRN IV NAUSEA, MRX1; Start 05/25/20 at 13:30; Stop 05/25/20 at 21:00; Status DC Fentanyl Citrate (Fentanyl 2ml Vial) 100 mcg STK-MED ONCE .ROUTE ; Start 05/25/20 at 14:23; Stop 05/25/20 at 14:24; Status DC Ondansetron HCl (Zofran) 4 mg STK-MED ONCE .ROUTE ; Start 05/25/20 at 14:37; Stop 05/25/20 at 14:37; Status DC Dexamethasone Sodium Phosphate (Decadron) 4 mg STK-MED ONCE .ROUTE ; Start 05/25 at 14:37; Stop 05/25/20 at 14:37; Status DC Neostigmine [place] (Neostigmine Methylsulfate) 5 mg STK-MED ONCE .ROUTE ; Sta rt 05/25/20 at 14:38; Stop 05/25/20 at 14:39; Status DC Glycopyrrolate (Robinul) 1 mg STK-MED ONCE .ROUTE ; Start 05/25/20 at 14:38; Stop 05/25/20 at 14:39; Status DC Rocuronium [place] (Zemuron) 50 mg STK-MED ONCE .ROUTE ; Start 05/25/20 at 14:41; Stop 05/25/20 at 14:42; Status DC Fentanyl Citrate (Fentanyl 2ml Vial) 100 mcg STK-MED ONCE .ROUTE ; Start 05/25/20 at 14:42; Stop 05/25/20 at 14:42; Status DC Sodium Chloride (Normal Saline Flush) 3 ml QSHIFT PRN IV AFTER MEDS AND BLOOD DRAWS; Start 05/25/20 at 14:45 Sodium Chloride 1,000 ml @ 130 mls/hr Q7H42M IV Last administered on 05/28/20at 03:41; Start 05/25/20 at 15:00 Ondansetron HCl (Zofran) 4 mg PRN Q4HRS PRN IV NAUSEA/VOMITING Last administered on 05/25/20at 23:14; Start 05/25/20 at 14:45 Acetaminophen (Tylenol Supp) 650 mg PRN Q4HRS PRN MI TEMP OVER 100.4F OR MILD PAIN; Start 05/25/20 at 14:45 Albuterol Sulfate (Ventolin Neb Soln) 2.5 mg PRN Q4HRS PRN NEB SHORTNESS OF BREATH; Start 05/25/20 at 14:45 Piperacillin Sod/ Tazobactam Sod 3.375 gm/Sodium Chloride 50 ml @ 100 mls/hr Q6HRS IV Last administered on 05/28/20at 06:30; Start 05/25/20 at 18:00 Midazolam HCl (Versed) 2 mg STK-MED ONCE .ROUTE ; Start 05/25/20 at 14:42; Stop 05/25/20 at 14:42; Status DC Pantoprazole Sodium (PROTONIX VIAL for IV PUSH) 40 mg DAILYAC IVP ; Start 05/26/20 at 07:30; Status Cancel Propofol (Diprivan) 200 mg STK-MED ONCE IV ; Start 05/25/20 at 14:44; Stop 05/25/20 at 14:44; Status DC Lidocaine HCl (Lidocaine Pf 2% Vial) 5 ml STK-MED ONCE .ROUTE ; Start 05/25/20 at 14:44; Stop 05/25/20 at 14:44; Status DC Multivitamins 10 ml/Thiamine HCl 100 mg/Folic Acid 1 mg/Sodium Chloride 1,011.2 ml @ 100 mls/ hr DAILY IV Last administered on 05/28/20at 08:18; Start 05/26/20 at 09:00; Stop 05/30/20 at 19:07 Thiamine HCl (Thiamine Im) 100 mg DAILY IM ; Start 05/30/20 at 09:00; Stop 06/04/20 at 08:59; Status UNV Thiamine HCl 100 mg/Dextrose 51 ml @ 100 mls/hr DAILY IV ; Start 05/30/20 at 09:00; Stop 06/03/20 at 09:31; Status UNV Lorazepam (Ativan Inj) 2 mg PRN Q1HR PRN IV For CIWA 8-14 Last administered on 05/26/20at 16:46; Start 05/25/20 at 14:45 Lorazepam (Ativan Inj) 4 mg PRN Q1HR PRN IV For CIWA 15 or greater; Start 05/25/20 at 14:45 Haloperidol Lactate (Haldol Inj) 5 mg PRN Q4HRS PRN IVP Hallucinatns,Confusn,Delirium; Start 05/25/20 at 14:45 Diphenhydramine HCl (Benadryl) 25 mg PRN Q15MIN PRN IVP EPS symptoms 2'Haldol admin; Start 05/25/20 at 14:45 Lorazepam (Ativan Inj) 2 mg PRN Q15MIN PRN IV SEE COMMENTS; Start 05/25/20 at 14:45; Status UNV Lorazepam (Ativan Inj) 4 mg PRN Q15MIN PRN IV SEE COMMENTS; Start 05/25/20 at 14:45; Status UNV Rocuronium [place] (Zemuron) 50 mg STK-MED ONCE .ROUTE ; Start 05/25/20 at 14:49; Stop 05/25/20 at 14:49; Status DC Pantoprazole Sodium (PROTONIX VIAL for IV PUSH) 40 mg 1X ONCE IVP ; Start 05/25/20 at 15:00; Stop 05/25/20 at 15:01; Status DC Fentanyl Citrate (Fentanyl 2ml Vial) 100 mcg STK-MED ONCE .ROUTE ; Start 05/25/20 at 15:21; Stop 05/25/20 at 15:22; Status DC Neostigmine [place] (Neostigmine Methylsulfate) 5 mg STK-MED ONCE .ROUTE ; Start 05/25/20 at 16:21; Stop 05/25/20 at 16:21; Status DC Pantoprazole Sodium 80 mg/ Sodium Chloride 100 ml @ 10 mls/hr Q10H IV Last administered on 05/26/20at 07:00; Start 05/25/20 at 18:00; Stop 05/26/20 at 09:40; Status DC Hydromorphone HCl (Dilaudid) 0.2 mg PRN Q4HRS PRN IVP MODERATE PAIN Last administered on 05/25/20at 23:40; Start 05/25/20 at 16:45 Hydromorphone HCl (Dilaudid) 1 mg PRN Q4HRS PRN IVP SEVERE PAIN Last administered on 05/28/20at 08:19; Start 05/25/20 at 16:45 Fentanyl Citrate (Fentanyl 2ml Vial) 100 mcg STK-MED ONCE .ROUTE ; Start 05/25/20 at 16:42; Stop 05/25/20 at 16:42; Status DC Fentanyl Citrate (Fentanyl 2ml Vial) 100 mcg STK-MED ONCE .ROUTE ; Start 05/25/20 at 17:14; Stop 05/25/20 at 17:14; Status DC Phenol (Chloraseptic) 1 spray PRN Q2HR PRN PO SORE THROAT Last administered on 05/26/20at 02:48; Start 05/25/20 at 20:15 Pantoprazole Sodium (PROTONIX VIAL for IV PUSH) 40 mg BIDAC IVP Last administered on 05/28/20at 08:18; Start 05/26/20 at 16:30 Vitals/I & O Vital Sign - Last 24 Hours 05/27/20 05/27/20 05/27/20 05/27/20 11:05 11:37 13:09 15:03 Temp 98.0 98.4 98.0 98.4 Pulse 99 105 Resp 19 18 B/P (MAP) 139/95 (110) 146/103 (117) Pulse Ox 96 97 O2 Delivery Room Air Room Air Room Air Room Air 05/27/20 05/27/20 05/27/20 05/27/20 19:00 19:30 19:46 20:20 Temp 100.5 100.5 Pulse 114 Resp 18 B/P (MAP) 139/94 (109) Pulse Ox 95 97 97 O2 Delivery Room Air Room Air Room Air Room Air 05/27/20 05/28/20 05/28/20 05/28/20 23:00 03:00 03:18 03:45 Temp 99.1 98.9 99.1 98.9 Pulse 96 94 Resp 18 18 B/P (MAP) 143/99 (114) 148/103 (118) Pulse Ox 98 99 99 99 O2 Delivery Room Air Room Air Room Air Room Air 05/28/20 07:00 Temp 98.0 98.0 Pulse 90 Resp 18 B/P (MAP) 149/97 (114) Pulse Ox 98 O2 Delivery Room Air Intake and Output 05/27/20 05/27/20 05/28/20 15:00 23:00 07:00 Intake Total 50 ml 1061.2 ml 50 ml Output Total 400 ml 460 ml 1540 ml Balance -350 ml 601.2 ml -1490 ml Justicifation of Admission Dx: Justifications for Admission: Justification of Admission Dx: Yes Sepsis: Infection MARIO BLOOM MD May 28, 2020 08:22
--- NOTE | 2020-05-28 09:12 | PDOC ---
HANS SCHREIBER APRN 05/28/20 0912: SURGICAL PROGRESS NOTE Subjective no pain + flatus Vital Signs Vital Signs Date Time Temp Pulse Resp B/P (MAP) Pulse Ox O2 Delivery O2 Flow Rate FiO2 05/28/20 07:00 98.0 90 18 149/97 (114) 98 Room Air 98.0 I&O Intake and Output 05/28/20 07:00 Intake Total 1161.2 ml Output Total 2400 ml Balance -1238.8 ml Intake Oral 0 ml IV Total 1161.2 ml Output Urine Total 2150 ml Drainage Total 250 ml General: Alert, Oriented X3, Cooperative Abdomen: Soft, Other (dressings dry, klaudia serosang ) Problem List Problems Medical Problems: (1) Pneumoperitoneum Status: Acute (2) Strangulated epigastric hernia Status: Acute Assessment/Plan s/p repair perf gastric ulcer start clears, PPI, abx Justicifation of Admission Dx: Justifications for Admission: Justification of Admission Dx: Yes Sepsis: Infection KALPESH BERMUDEZ MD 05/28/20 1246: SURGICAL PROGRESS NOTE Assessment/Plan Agree with above HANS SCHREIBER APRN May 28, 2020 09:12 KALPESH BERMUDEZ MD May 28, 2020 12:46
--- NOTE | 2020-05-28 10:19 | NUR ---
SW following. Discussed with RN, pt has advanced to clears, wants to discharge. Pt cleared by PAT, potential discharge home today with self care. SW will continue to follow should any discharge needs arise.
--- NOTE | 2020-05-28 10:56 | PDOC ---
Subjective: Subjective: Says stooled, a little pain, wants to eat. Objective: Objective: D/w nurse. Vital Signs: Vital Signs Date Time Temp Pulse Resp B/P (MAP) Pulse Ox O2 Delivery O2 Flow Rate FiO2 05/28/20 07:00 98.0 90 18 149/97 (114) 98 Room Air 98.0 Labs: BLOOD CULTURE Preliminary NO GROWTH AFTER 2 DAYS PE: GEN: NAD LUNGS: CTAB HEART: RRR ABD: mild discomfort NEURO/PSYCH: A & O 3, speaks Pal[place] A/P: S/p repair of perf and incarcerated VH Substance abuse -- Diet per surgery. Change to PO PPI as able. Justicifation of Admission Dx: Justifications for Admission: Justification of Admission Dx: Yes Sepsis: Infection ISHA NICHOLE May 28, 2020 10:56
[2020-05-28 10:57] VITALS: BP 150/106
--- NOTE | 2020-05-28 12:00 | NUR ---
Did not administer scheduled NS d/t multivite IVF and zosyn running.
[2020-05-28 13:49] LABS: BASO % 0 % (0-3); EOS # 0.1 x10^3/uL (0.0-0.7); EOS % 1 % (0-3); HEMATOCRIT 34.2 % (39.0-53.0); HEMOGLOBIN 12.3 g/dL (13.0-17.5); LYMPH # 1.2 x10^3/uL (1.0-4.8); LYMPH % 10 % (24-48); MEAN CORPUSCULAR HEMOGLOBIN 31 pg (25-35); MEAN CORPUSCULAR HGB CONC 36 g/dL (31-37); MEAN CORPUSCULAR VOLUME 85 fL (79-100); MONO # 1.1 x10^3/uL (0.0-1.1); MONO % 10 % (0-9); NEUT # 9.4 x10^3/uL (1.8-7.7); NEUT % 79 % (31-73); PLATELET COUNT 400 x10^3/uL (140-400); RED BLOOD COUNT 4.01 x10^6/uL (4.30-5.70); RED CELL DISTRIBUTION WIDTH 13.4 % (11.5-14.5); WHITE BLOOD COUNT 11.9 x10^3/uL (4.0-11.0)
[2020-05-28] MEDS: HYDROcodone/APAP 5/325MG 1 TAB TABLET PO PRN ×3 (13:52→21:20)
[2020-05-28 14:06] LABS: ALBUMIN 2.4 g/dL (3.4-5.0); ALBUMIN/GLOBULIN RATIO 0.6 (1.0-1.7); CALCIUM 8.3 mg/dL (8.5-10.1); CREATININE 0.7 mg/dL (0.7-1.3); GFR 124.9; POTASSIUM 3.3 mmol/L (3.5-5.1); TOTAL BILIRUBIN 2.4 mg/dL (0.2-1.0); TOTAL PROTEIN 6.6 g/dL (6.4-8.2)
[2020-05-28 15:15] VITALS: BP 138/96
[2020-05-28 19:05] VITALS: BP 135/95
[2020-05-28] MEDS: LACTOBACILLUS RHAMNOSUS GG 1 CAPSULE. PO SCH (21:19)
[2020-05-28 22:32] VITALS: BP 124/85
[2020-05-29] MEDS: PIPERACILLIN/TAZOBACTAM 3.375 GM in IV NORMAL SALINE 50ML 50 ML IV SCH ×3 (00:01→12:39)
[2020-05-29] MEDS: HYDROcodone/APAP 5/325MG 1 TAB TABLET PO PRN ×5 (00:06→15:41)
[2020-05-29 03:00] VITALS: BP 131/92
[2020-05-29] MEDS: IV NORMAL SALINE 1000ML BAG 1,000 ML IV SCH ×2 (04:12→11:16)
--- NOTE | 2020-05-29 06:30 | PDOC ---
PROGRESS NOTES History of Present Illness History of Present Illness VTE Prophylaxis Ordered VTE Prophylaxis Devices: Yes VTE Pharmacological Prophylaxi: Contraindicated Assessment/Plan Assessment/Plan Impression: 1 Acute abdominal pain se to # 3 . 2. Small upper abdominal pneumoperitoneum, concerning for bowel perforation. 3. Multifocal small bowel wall thickening most prominent within the left mid abdomen with adjacent inflammatory changes and infiltration of the anterior mesentery, may relate to enteritis. 4. Upper abdominal anterior fat-containing hernia with infiltration of the fat, raising concern for strangulated hernia. Anterior mesenteric edema. Fat-containing anterior upper abdominal wall hernia with infiltration of the fat raising concern for strangulation. Fascial defect measures 1.3 cm. Hernia measures approximately 3.6 x 3.8 cm. 5. Small upper abdominal and pelvic ascites. 6. Mild gallbladder wall thickening with pericholecystic fluid, may relate to liver disease. If concern for right upper quadrant pain, ultrasound can better evaluate. 7. severe alcohol abuse 8. methamphetamine abuse plan ADMIT GEN SURGERY CONSULT laparotomy, // bowel resection NPO IV FLUIDS IV PROTONIX GI CONSULT CIWA PRECAUTIONS thiamine iv daily banana bag iv daily scd's Laparoscopic repair of perforated gastric ulcer, repair of incarcerated ventral hernia 05/25 28 min pt exam, chart review, > 50% of time spent with exam, chart review, pt care coordination Vitals Vitals Vital Signs Date Time Temp Pulse Resp B/P (MAP) Pulse Ox O2 Delivery O2 Flow Rate FiO2 05/29/20 05:12 20 Room Air 05/29/20 03:00 98.3 70 131/92 (105) 99 2.0 98.3 Physical Exam General: Alert, Oriented X3, Cooperative, No acute distress Heart: Regular rate, Normal S1, Normal S2 Lungs: Clear Abdomen: Soft, Other (dressing dry, klaudia serosang binder in place) Extremities: No cyanosis Skin: No rashes, No breakdown Labs LABS Laboratory Tests Test 05/28/20 13:35 White Blood Count 11.9 x10^3/uL (4.0-11.0) Red Blood Count 4.01 x10^6/uL (4.30-5.70) Hemoglobin 12.3 g/dL (13.0-17.5) Hematocrit 34.2 % (39.0-53.0) Mean Corpuscular Volume 85 fL (79-100) Mean Corpuscular Hemoglobin 31 pg (25-35) Mean Corpuscular Hemoglobin Concent 36 g/dL (31-37) Red Cell Distribution Width 13.4 % (11.5-14.5) Platelet Count 400 x10^3/uL (140-400) Neutrophils (%) (Auto) 79 % (31-73) Lymphocytes (%) (Auto) 10 % (24-48) Monocytes (%) (Auto) 10 % (0-9) Eosinophils (%) (Auto) 1 % (0-3) Basophils (%) (Auto) 0 % (0-3) Neutrophils # (Auto) 9.4 x10^3/uL (1.8-7.7) Lymphocytes # (Auto) 1.2 x10^3/uL (1.0-4.8) Monocytes # (Auto) 1.1 x10^3/uL (0.0-1.1) Eosinophils # (Auto) 0.1 x10^3/uL (0.0-0.7) Basophils # (Auto) 0.0 x10^3/uL (0.0-0.2) Sodium Level 135 mmol/L (136-145) Potassium Level 3.3 mmol/L (3.5-5.1) Chloride Level 98 mmol/L (98-107) Carbon Dioxide Level 29 mmol/L (21-32) Anion Gap 8 (6-14) Blood Urea Nitrogen 9 mg/dL (8-26) Creatinine 0.7 mg/dL (0.7-1.3) Estimated GFR (Cockcroft-Gault) 124.9 BUN/Creatinine Ratio 13 (6-20) Glucose Level 132 mg/dL (70-99) Calcium Level 8.3 mg/dL (8.5-10.1) Total Bilirubin 2.4 mg/dL (0.2-1.0) Aspartate Amino Transf (AST/SGOT) 24 U/L (15-37) Alanine Aminotransferase (ALT/SGPT) 24 U/L (16-63) Alkaline Phosphatase 74 U/L (46-116) Total Protein 6.6 g/dL (6.4-8.2) Albumin 2.4 g/dL (3.4-5.0) Albumin/Globulin Ratio 0.6 (1.0-1.7) Assessment and Plan Assessmemt and Plan Problems Medical Problems: (1) Pneumoperitoneum Status: Acute (2) Strangulated epigastric hernia Status: Acute Comment Review of Relevant I have reviewed the following items elsa (where applicable) has been applied. Labs Laboratory Tests Test 05/28/20 13:35 White Blood Count 11.9 x10^3/uL (4.0-11.0) Red Blood Count 4.01 x10^6/uL (4.30-5.70) Hemoglobin 12.3 g/dL (13.0-17.5) Hematocrit 34.2 % (39.0-53.0) Mean Corpuscular Volume 85 fL (79-100) Mean Corpuscular Hemoglobin 31 pg (25-35) Mean Corpuscular Hemoglobin Concent 36 g/dL (31-37) Red Cell Distribution Width 13.4 % (11.5-14.5) Platelet Count 400 x10^3/uL (140-400) Neutrophils (%) (Auto) 79 % (31-73) Lymphocytes (%) (Auto) 10 % (24-48) Monocytes (%) (Auto) 10 % (0-9) Eosinophils (%) (Auto) 1 % (0-3) Basophils (%) (Auto) 0 % (0-3) Neutrophils # (Auto) 9.4 x10^3/uL (1.8-7.7) Lymphocytes # (Auto) 1.2 x10^3/uL (1.0-4.8) Monocytes # (Auto) 1.1 x10^3/uL (0.0-1.1) Eosinophils # (Auto) 0.1 x10^3/uL (0.0-0.7) Basophils # (Auto) 0.0 x10^3/uL (0.0-0.2) Sodium Level 135 mmol/L (136-145) Potassium Level 3.3 mmol/L (3.5-5.1) Chloride Level 98 mmol/L (98-107) Carbon Dioxide Level 29 mmol/L (21-32) Anion Gap 8 (6-14) Blood Urea Nitrogen 9 mg/dL (8-26) Creatinine 0.7 mg/dL (0.7-1.3) Estimated GFR (Cockcroft-Gault) 124.9 BUN/Creatinine Ratio 13 (6-20) Glucose Level 132 mg/dL (70-99) Calcium Level 8.3 mg/dL (8.5-10.1) Total Bilirubin 2.4 mg/dL (0.2-1.0) Aspartate Amino Transf (AST/SGOT) 24 U/L (15-37) Alanine Aminotransferase (ALT/SGPT) 24 U/L (16-63) Alkaline Phosphatase 74 U/L (46-116) Total Protein 6.6 g/dL (6.4-8.2) Albumin 2.4 g/dL (3.4-5.0) Albumin/Globulin Ratio 0.6 (1.0-1.7) Laboratory Tests Test 05/28/20 13:35 White Blood Count 11.9 x10^3/uL (4.0-11.0) Red Blood Count 4.01 x10^6/uL (4.30-5.70) Hemoglobin 12.3 g/dL (13.0-17.5) Hematocrit 34.2 % (39.0-53.0) Mean Corpuscular Volume 85 fL (79-100) Mean Corpuscular Hemoglobin 31 pg (25-35) Mean Corpuscular Hemoglobin Concent 36 g/dL (31-37) Red Cell Distribution Width 13.4 % (11.5-14.5) Platelet Count 400 x10^3/uL (140-400) Neutrophils (%) (Auto) 79 % (31-73) Lymphocytes (%) (Auto) 10 % (24-48) Monocytes (%) (Auto) 10 % (0-9) Eosinophils (%) (Auto) 1 % (0-3) Basophils (%) (Auto) 0 % (0-3) Neutrophils # (Auto) 9.4 x10^3/uL (1.8-7.7) Lymphocytes # (Auto) 1.2 x10^3/uL (1.0-4.8) Monocytes # (Auto) 1.1 x10^3/uL (0.0-1.1) Eosinophils # (Auto) 0.1 x10^3/uL (0.0-0.7) Basophils # (Auto) 0.0 x10^3/uL (0.0-0.2) Sodium Level 135 mmol/L (136-145) Potassium Level 3.3 mmol/L (3.5-5.1) Chloride Level 98 mmol/L (98-107) Carbon Dioxide Level 29 mmol/L (21-32) Anion Gap 8 (6-14) Blood Urea Nitrogen 9 mg/dL (8-26) Creatinine 0.7 mg/dL (0.7-1.3) Estimated GFR (Cockcroft-Gault) 124.9 BUN/Creatinine Ratio 13 (6-20) Glucose Level 132 mg/dL (70-99) Calcium Level 8.3 mg/dL (8.5-10.1) Total Bilirubin 2.4 mg/dL (0.2-1.0) Aspartate Amino Transf (AST/SGOT) 24 U/L (15-37) Alanine Aminotransferase (ALT/SGPT) 24 U/L (16-63) Alkaline Phosphatase 74 U/L (46-116) Total Protein 6.6 g/dL (6.4-8.2) Albumin 2.4 g/dL (3.4-5.0) Albumin/Globulin Ratio 0.6 (1.0-1.7) Microbiology 05/25/20 Blood Culture - Preliminary, Resulted NO GROWTH AFTER 3 DAYS Medications Current Medications Sodium Chloride 1,000 ml @ 1,000 mls/hr Q1H IV Last administered on 05/25/20at 11:04; Start 05/25/20 at 11:00; Stop 05/25/20 at 11:59; Status DC Fentanyl Citrate (Fentanyl 2ml Vial) 50 mcg 1X ONCE IVP Last administered on 05/25/20at 11:04; Start 05/25/20 at 11:00; Stop 05/25/20 at 11:01; Status DC Ondansetron HCl (Zofran) 4 mg 1X ONCE IVP Last administered on 05/25/20 11:04; Start 05/25/20 at 11:00; Stop 05/25/20 at 11:01; Status DC Pantoprazole Sodium (PROTONIX VIAL for IV PUSH) 40 mg 1X ONCE IVP Last administered on 05/25/20at 11:04; Start 05/25/20 at 11:00; Stop 05/25/20 at 11:01; Status DC Iohexol (Omnipaque 300 Mg/ml) 75 ml 1X ONCE IV Last administered on 05/25/20at 11:17; Start 05/25/20 at 11:00; Stop 05/25/20 at 11:01; Status DC Piperacillin Sod/ Tazobactam Sod 3.375 gm/Sodium Chloride 50 ml @ 100 mls/hr 1X ONCE IV Last administered on 05/25/20at 11:54; Start 05/25/20 at 12:00; Stop 05/25/20 at 12:29; Status DC Sodium Chloride 1,000 ml @ 1,000 mls/hr 1X ONCE IV Last administered on 05/25/20at 11:53; Start 05/25/20 at 12:00; Stop 05/25/20 at 12:59; Status DC Fentanyl Citrate (Fentanyl 2ml Vial) 50 mcg 1X ONCE IVP Last administered on 05/25/20at 11:53; Start 05/25/20 at 12:00; Stop 05/25/20 at 12:01; Status DC Ondansetron HCl (Zofran) 4 mg PRN Q8HRS PRN IV NAUSEA/VOMITING; Start 05/25/20 at 12:15; Stop 05/25/20 at 14:55; Status DC Fentanyl Citrate (Fentanyl 2ml Vial) 50 mcg PRN Q1HR PRN IV PAIN Last administered on 05/26/20at 09:13; Start 05/25/20 at 12:15; Stop 05/26/20 at 12:14; Status DC Sodium Chloride 1,000 ml @ 125 mls/hr Q8H IV Last administered on 05/26/20at 03:26; Start 05/25/20 at 13:00; Stop 05/26/20 at 12:59; Status DC Ondansetron HCl (Zofran) 4 mg PRN Q6HRS PRN IV NAUSEA/VOMITING; Start 05/25/20 at 13:30; Stop 05/25/20 at 21:00; Status DC Fentanyl Citrate (Fentanyl 2ml Vial) 25 mcg PRN Q5MIN PRN IV MILD PAIN 1-3; Start 05/25/20 at 13:30; Stop 05/25/20 at 21:00; Status DC Fentanyl Citrate (Fentanyl 2ml Vial) 50 mcg PRN Q5MIN PRN IV MODERATE TO SEVERE PAIN Last administered on 05/25/20at 17:20; Start 05/25/20 at 13:30; Stop 05/25/20 at 21:00; Status DC Morphine Sulfate (Morphine Sulfate) 1 mg PRN Q10MIN PRN IV SEVERE PAIN 7-10; Start 05/25/20 at 13:30; Stop 05/25/20 at 21:00; Status DC Ringer's Solution 1,000 ml @ 30 mls/hr Q24H IV ; Start 05/25/20 at 13:30; Stop 05/25/20 at 18:00; Status DC Lidocaine HCl (Xylocaine-Mpf 1% 2ml Vial) 2 ml PRN 1X PRN ID PRIOR TO IV START; Start 05/25/20 at 13:30; Stop 05/25/20 at 18:00; Status DC Hydromorphone HCl (Dilaudid) 0.5 mg PRN Q10MIN PRN IV SEV PAIN, Second choice; Start 05/25/20 at 13:30; Stop 05/25/20 at 21:00; Status DC Prochlorperazine Edisylate (Compazine) 5 mg PACU PRN PRN IV NAUSEA, MRX1; Start 05/25/20 at 13:30; Stop 05/25/20 at 21:00; Status DC Fentanyl Citrate (Fentanyl 2ml Vial) 100 mcg STK-MED ONCE .ROUTE ; Start 05/25/20 at 14:23; Stop 05/25/20 at 14:24; Status DC Ondansetron HCl (Zofran) 4 mg STK-MED ONCE .ROUTE ; Start 05/25/20 at 14:37; Stop 05/25/20 at 14:37; Status DC Dexamethasone Sodium Phosphate (Decadron) 4 mg STK-MED ONCE .ROUTE ; Start 05/25/20 at 14:37; Stop 05/25/20 at 14:37; Status DC Neostigmine [place] (Neostigmine Methylsulfate) 5 mg STK-MED ONCE .ROUTE ; Start 05/25/20 at 14:38; Stop 05/25/20 at 14:39; Status DC Glycopyrrolate (Robinul) 1 mg STK-MED ONCE .ROUTE ; Start 05/25/20 at 14:38; Stop 05/25/20 at 14:39; Status DC Rocuronium [place] (Zemuron) 50 mg STK-MED ONCE .ROUTE ; Start 05/25/20 at 14:41; Stop 05/25/20 at 14:42; Status DC Fentanyl Citrate (Fentanyl 2ml Vial) 100 mcg STK-MED ONCE .ROUTE ; Start 05/25/20 at 14:42; Stop 05/25/20 at 14:42; Status DC Sodium Chloride (Normal Saline Flush) 3 ml QSHIFT PRN IV AFTER MEDS AND BLOOD DRAWS; Start 05/25/20 at 14:45 Sodium Chloride 1,000 ml @ 130 mls/hr Q7H42M IV Last administered on 05/29/20at 04:12; Start 05/25/20 at 15:00 Ondansetron HCl (Zofran) 4 mg PRN Q4HRS PRN IV NAUSEA/VOMITING Last administered on 05/25/20at 23:14; Start 05/25/20 at 14:45 Acetaminophen (Tylenol Supp) 650 mg PRN Q4HRS PRN LA TEMP OVER 100.4F OR MILD PAIN; Start 05/25/20 at 14:45 Albuterol Sulfate (Ventolin Neb Soln) 2.5 mg PRN Q4HRS PRN NEB SHORTNESS OF BREATH; Start 05/25/20 at 14:45 Piperacillin Sod/ Tazobactam Sod 3.375 gm/Sodium Chloride 50 ml @ 100 mls/hr Q6HRS IV Last administered on 05/29/20at 06:01; Start 05/25/20 at 18:00 Midazolam HCl (Versed) 2 mg STK-MED ONCE .ROUTE ; Start 05/25/20 at 14:42; Stop 05/25/20 at 14:42; Status DC Pantoprazole Sodium (PROTONIX VIAL for IV PUSH) 40 mg DAILYAC IVP ; Start 05/26/20 at 07:30; Status Cancel Propofol (Diprivan) 200 mg STK-MED ONCE IV ; Start 05/25/20 at 14:44; Stop 05/25/20 at 14:44; Status DC Lidocaine HCl (Lidocaine Pf 2% Vial) 5 ml STK-MED ONCE .ROUTE ; Start 05/25/20 at 14:44; Stop 05/25/20 at 14:44; Status DC Multivitamins 10 ml/Thiamine HCl 100 mg/Folic Acid 1 mg/Sodium Chloride 1,011.2 ml @ 100 mls/ hr DAILY IV Last administered on 05/28/20at 08:18; Start 05/26/20 at 09:00; Stop 05/30/20 at 19:07 Thiamine HCl (Thiamine Im) 100 mg DAILY IM ; Start 05/30/20 at 09:00; Stop 06/04/20 at 08:59; Status UNV Thiamine HCl 100 mg/Dextrose 51 ml @ 100 mls/hr DAILY IV ; Start 05/30/20 at 09:00; Stop 06/03/20 at 09:31; Status UNV Lorazepam (Ativan Inj) 2 mg PRN Q1HR PRN IV For CIWA 8-14 Last administered on 05/26/20at 16:46; Start 05/25/20 at 14:45 Lorazepam (Ativan Inj) 4 mg PRN Q1HR PRN IV For CIWA 15 or greater; Start 05/25/20 at 14:45 Haloperidol Lactate (Haldol Inj) 5 mg PRN Q4HRS PRN IVP Hallucinatns,Confusn,Delirium; Start 05/25/20 at 14:45 Diphenhydramine HCl (Benadryl) 25 mg PRN Q15MIN PRN IVP EPS symptoms 2'Haldol admin; Start 05/25/20 at 14:45 Lorazepam (Ativan Inj) 2 mg PRN Q15MIN PRN IV SEE COMMENTS; Start 05/25/20 at 14:45; Status UNV Lorazepam (Ativan Inj) 4 mg PRN Q15MIN PRN IV SEE COMMENTS; Start 05/25/20 at 14:45; Status UNV Rocuronium [place] (Zemuron) 50 mg STK-MED ONCE .ROUTE ; Start 05/25/20 at 14:49; Stop 05/25/20 at 14:49; Status DC Pantoprazole Sodium (PROTONIX VIAL for IV PUSH) 40 mg 1X ONCE IVP ; Start 05/25/20 at 15:00; Stop 05/25/20 at 15:01; Status DC Fentanyl Citrate (Fentanyl 2ml Vial) 100 mcg STK-MED ONCE .ROUTE ; Start 05/25/20 at 15:21; Stop 05/25/20 at 15:22; Status DC Neostigmine [place] (Neostigmine Methylsulfate) 5 mg STK-MED ONCE .ROUTE ; Start 05/25/20 at 16:21; Stop 05/25/20 at 16:21; Status DC Pantoprazole Sodium 80 mg/ Sodium Chloride 100 ml @ 10 mls/hr Q10H IV Last administered on 05/26/20at 07:00; Start 05/25/20 at 18:00; Stop 05/26/20 at 09:40; Status DC Hydromorphone HCl (Dilaudid) 0.2 mg PRN Q4HRS PRN IVP MODERATE PAIN Last administered on 05/25/20at 23:40; Start 05/25/20 at 16:45 Hydromorphone HCl (Dilaudid) 1 mg PRN Q4HRS PRN IVP SEVERE PAIN Last administered on 05/28/20at 08:19; Start 05/25/20 at 16:45 Fentanyl Citrate (Fentanyl 2ml Vial) 100 mcg STK-MED ONCE .ROUTE ; Start 05/25/20 at 16:42; Stop 05/25/20 at 16:42; Status DC Fentanyl Citrate (Fentanyl 2ml Vial) 100 mcg STK-MED ONCE .ROUTE ; Start 05/25/20 at 17:14; Stop 05/25/20 at 17:14; Status DC Phenol (Chloraseptic) 1 spray PRN Q2HR PRN PO SORE THROAT Last administered on 05/26/20at 02:48; Start 05/25/20 at 20:15 Pantoprazole Sodium (PROTONIX VIAL for IV PUSH) 40 mg BIDAC IVP Last adminis tered on 05/28/20at 16:46; Start 05/26/20 at 16:30 Acetaminophen/ Hydrocodone Bitart (Lortab 5/325) 1 tab PRN Q4HRS PRN PO PAIN Last administered on 05/29/20at 04:12; Start 05/28/20 at 12:15 Lactobacillus Rhamnosus (Culturelle) 1 cap BID PO Last administered on 05/28/20at 21:19; Start 05/28/20 at 21:00 Vitals/I & O Vital Sign - Last 24 Hours 05/28/20 05/28/20 05/28/20 05/28/20 07:00 08:00 10:57 15:15 Temp 98.0 97.7 97.5 98.0 97.7 97.5 Pulse 90 91 61 Resp 18 18 18 B/P (MAP) 149/97 (114) 150/106 (121) 138/96 (110) Pulse Ox 98 99 99 O2 Delivery Room Air Room Air Room Air Room Air 05/28/20 05/28/20 05/28/20 05/28/20 19:05 19:35 21:20 22:20 Temp 97.9 97.9 Pulse 80 Resp 18 B/P (MAP) 135/95 (108) Pulse Ox 99 O2 Delivery Room Air Room Air Room Air Room Air 05/28/20 05/29/20 05/29/20 05/29/20 22:32 00:06 01:06 03:00 Temp 98.4 98.3 98.4 98.3 Pulse 79 70 Resp 18 B/P (MAP) 124/85 (98) 131/92 (105) Pulse Ox 99 99 O2 Delivery Room Air Room Air Room Air Room Air O2 Flow Rate 2.0 05/29/20 05/29/20 04:12 05:12 Resp 20 20 O2 Delivery Room Air Room Air Intake and Output 05/28/20 05/28/20 05/29/20 15:00 23:00 07:00 Intake Total 150 ml 500 ml 3120 ml Output Total 60 ml 1530 ml Balance 150 ml 440 ml 1590 ml Justicifation of Admission Dx: Justifications for Admission: Justification of Admission Dx: Yes Sepsis: Infection MARIO BLOOM MD May 29, 2020 06:30
[2020-05-29 07:39] VITALS: BP 135/98
[2020-05-29] MEDS: MULTIVIT INFUSN,ADULT 4,VIT K 10 ML, THIAMINE INJ 100 MG, FOLIC ACID INJ 1 MG in IV NOR... IV SCH (09:32)
[2020-05-29] MEDS: PANTOPRAZOLE IV PUSH 40 MG VIAL. IVP SCH (09:32)
[2020-05-29] MEDS: LACTOBACILLUS RHAMNOSUS GG 1 CAPSULE. PO SCH (09:32)
[2020-05-29 11:08] VITALS: BP 132/76
--- NOTE | 2020-05-29 11:30 | NUR ---
SW following. Discussed with RN, pt advancing diet as tolerated. RN anticipates possible discharge home today with self care. SW will continue to follow.
[2020-05-29] MEDS ORDERED: POTASSIUM CHLORIDE 20 MEQ TABLET.ER. PO ONE (12:45)
--- NOTE | 2020-05-29 12:58 | PDOC ---
Subjective: Subjective: Denies pain, happy to eat. Stooling. Objective: Objective: D/w Arlette/surgery and nurse - possible DC today. Vital Signs: Vital Signs Date Time Temp Pulse Resp B/P (MAP) Pulse Ox O2 Delivery O2 Flow Rate FiO2 05/29/20 12:42 Room Air 05/29/20 11:08 98.4 76 18 132/76 (94) 99 98.4 05/29/20 03:00 2.0 Labs: Laboratory Tests Test 05/28/20 13:35 White Blood Count 11.9 x10^3/uL Red Blood Count 4.01 x10^6/uL Hemoglobin 12.3 g/dL Hematocrit 34.2 % Mean Corpuscular Volume 85 fL Mean Corpuscular Hemoglobin 31 pg Mean Corpuscular Hemoglobin Concent 36 g/dL Red Cell Distribution Width 13.4 % Platelet Count 400 x10^3/uL Neutrophils (%) (Auto) 79 % Lymphocytes (%) (Auto) 10 % Monocytes (%) (Auto) 10 % Eosinophils (%) (Auto) 1 % Basophils (%) (Auto) 0 % Neutrophils # (Auto) 9.4 x10^3/uL Lymphocytes # (Auto) 1.2 x10^3/uL Monocytes # (Auto) 1.1 x10^3/uL Eosinophils # (Auto) 0.1 x10^3/uL Basophils # (Auto) 0.0 x10^3/uL Sodium Level 135 mmol/L Potassium Level 3.3 mmol/L Chloride Level 98 mmol/L Carbon Dioxide Level 29 mmol/L Anion Gap 8 Blood Urea Nitrogen 9 mg/dL Creatinine 0.7 mg/dL Estimated GFR (Cockcroft-Gault) 124.9 BUN/Creatinine Ratio 13 Glucose Level 132 mg/dL Calcium Level 8.3 mg/dL Total Bilirubin 2.4 mg/dL Aspartate Amino Transf (AST/SGOT) 24 U/L Alanine Aminotransferase (ALT/SGPT) 24 U/L Alkaline Phosphatase 74 U/L Total Protein 6.6 g/dL Albumin 2.4 g/dL Albumin/Globulin Ratio 0.6 BLOOD CULTURE Preliminary NO GROWTH AFTER 4 DAYS PE: GEN: NAD LUNGS: CTAB HEART: RRR ABD: soft NEURO/PSYCH: A & O 3 A/P: S/p repair of perf and incarcerated [facility] Substance abuse -- Dc per surgery/primary on PPI. Follow-up for EGD. Justicifation of Admission Dx: Justifications for Admission: Justification of Admission Dx: Yes Sepsis: Infection ISHA NICHOLE May 29, 2020 12:58
--- NOTE | 2020-05-29 13:37 | PDOC3 ---
Discharge Summary Date of Admission: May 25, 2020 Date of Discharge: May 29, 2020 Follow-Up: 3-5 days Admitting Diagnosis comment: DISCHARGE DX Assessment/Plan Impression: 1 Acute abdominal pain se to # 3 . 2. Small upper abdominal pneumoperitoneum, concerning for bowel perforation. 3. Multifocal small bowel wall thickening most prominent within the left mid abdomen with adjacent inflammatory changes and infiltration of the anterior mesentery, may relate to enteritis. 4. Upper abdominal anterior fat-containing hernia with infiltration of the fat, raising concern for strangulated hernia. Anterior mesenteric edema. Fat-containing anterior upper abdominal wall hernia with infiltration of the fat raising concern for strangulation. Fascial defect measures 1.3 cm. Hernia measures approximately 3.6 x 3.8 cm. 5. Small upper abdominal and pelvic ascites. 6. Mild gallbladder wall thickening with pericholecystic fluid, 7. severe alcohol abuse 8. methamphetamine abuse plan ADMIT GEN SURGERY CONSULT laparotomy, // bowel resection NPO IV FLUIDS POP PROTONIX GI CONSULT CIWA PRECAUTIONS thiamine iv daily banana bag iv daily scd's Laparoscopic repair of perforated gastric ulcer, repair of incarcerated ventral hernia 05/25 05/29 RN STATES SURGERY OK TO D/C TODAY HOMEW 35 min pt exam, chart review D/C PLANNING , > 50% of time spent with exam, chart review, pt care coordination Vitals Vitals Vital Signs Date Time Temp Pulse Resp B/P (MAP) Pulse Ox O2 Delivery O2 Flow Rate FiO2 05/29/20 05:12 20 Room Air 05/29/20 03:00 98.3 70 131/92 (105) 99 2.0 98.3 Physical Exam General: Alert, Oriented X3, Cooperative, No acute distress Heart: Regular rate, Normal S1, Normal S2 Lungs: Clear Abdomen: Soft, Other (dressing dry, klaudia serosang binder in place) Extremities: No cyanosis Skin: No rashes, No breakdown FINAL DIAGNOSIS Problems Medical Problems: (1) Pneumoperitoneum Status: Acute (2) Strangulated epigastric hernia Status: Acute Brief Hospital Course Mr. Reed is a 39 old [sex] who presented with [HERNIA ] CONDITION AT DISCHARGE: Improved Discharge Medications Current Medications Sodium Chloride 1,000 ml @ 1,000 mls/hr Q1H IV Last administered on 05/25/20at 11:04; Start 05/25/20 at 11:00; Stop 05/25/20 at 11:59; Status DC Fentanyl Citrate (Fentanyl 2ml Vial) 50 mcg 1X ONCE IVP Last administered on 05/25/20at 11:04; Start 05/25/20 at 11:00; Stop 05/25/20 at 11:01; Status DC Ondansetron HCl (Zofran) 4 mg 1X ONCE IVP Last administered on 05/25/20at 11:04; Start 05/25/20 at 11:00; Stop 05/25/20 at 11:01; Status DC Pantoprazole Sodium (PROTONIX VIAL for IV PUSH) 40 mg 1X ONCE IVP Last administered on 05/25/20at 11:04; Start 05/25/20 at 11:00; Stop 05/25/20 at 11:01; Status DC Iohexol (Omnipaque 300 Mg/ml) 75 ml 1X ONCE IV Last administered on 05/25/20 11:17; Start 05/25/20 at 11:00; Stop 05/25/20 at 11:01; Status DC Piperacillin Sod/ Tazobactam Sod 3.375 gm/Sodium Chloride 50 ml @ 100 mls/hr 1X ONCE IV Last administered on 05/25/20at 11:54; Start 05/25/20 at 12:00; Stop 05/25/20 at 12:29; Status DC Sodium Chloride 1,000 ml @ 1,000 mls/hr 1X ONCE IV Last administered on 05/25/20at 11:53; Start 05/25/20 at 12:00; Stop 05/25/20 at 12:59; Status DC Fentanyl Citrate (Fentanyl 2ml Vial) 50 mcg 1X ONCE IVP Last administered on 05/25/20at 11:53; Start 05/25/20 at 12:00; Stop 05/25/20 at 12:01; Status DC Ondansetron HCl (Zofran) 4 mg PRN Q8HRS PRN IV NAUSEA/VOMITING; Start 05/25/20 at 12:15; Stop 05/25/20 at 14:55; Status DC Fentanyl Citrate (Fentanyl 2ml Vial) 50 mcg PRN Q1HR PRN IV PAIN Last administered on 05/26/20at 09:13; Start 05/25/20 at 12:15; Stop 05/26/20 at 12:14; Status DC Sodium Chloride 1,000 ml @ 125 mls/hr Q8H IV Last administered on 05/26/20at 03:26; Start 05/25/20 at 13:00; Stop 05/26/20 at 12:59; Status DC Ondansetron HCl (Zofran) 4 mg PRN Q6HRS PRN IV NAUSEA/VOMITING; Start 05/25/20 at 13:30; Stop 05/25/20 at 21:00; Status DC Fentanyl Citrate (Fentanyl 2ml Vial) 25 mcg PRN Q5MIN PRN IV MILD PAIN 1-3; Start 05/25/20 at 13:30; Stop 05/25/20 at 21:00; Status DC Fentanyl Citrate (Fentanyl 2ml Vial) 50 mcg PRN Q5MIN PRN IV MODERATE TO SEVERE PAIN Last administered on 05/25/20at 17:20; Start 05/25/20 at 13:30; Stop 05/25/20 at 21:00; Status DC Morphine Sulfate (Morphine Sulfate) 1 mg PRN Q10MIN PRN IV SEVERE PAIN 7-10; Start 05/25/20 at 13:30; Stop 05/25/20 at 21:00; Status DC Ringer's Solution 1,000 ml @ 30 mls/hr Q24H IV ; Start 05/25/20 at 13:30; Stop 05/25/20 at 18:00; Status DC Lidocaine HCl (Xylocaine-Mpf 1% 2ml Vial) 2 ml PRN 1X PRN ID PRIOR TO IV START; Start 05/25/20 at 13:30; Stop 05/25/20 at 18:00; Status DC Hydromorphone HCl (Dilaudid) 0.5 mg PRN Q10MIN PRN IV SEV PAIN, Second choice; Start 05/25/20 at 13:30; Stop 05/25/20 at 21:00; Status DC Prochlorperazine Edisylate (Compazine) 5 mg PACU PRN PRN IV NAUSEA, MRX1; Start 05/25/20 at 13:30; Stop 05/25/20 at 21:00; Status DC Fentanyl Citrate (Fentanyl 2ml Vial) 100 mcg STK-MED ONCE .ROUTE ; Start 7/13/20 at 14:23; Stop 05/25/20 at 14:24; Status DC Ondansetron HCl (Zofran) 4 mg STK-MED ONCE .ROUTE ; Start 05/25/20 at 14:37; Stop 05/25/20 at 14:37; Status DC Dexamethasone Sodium Phosphate (Decadron) 4 mg STK-MED ONCE .ROUTE ; Start 05/25/20 at 14:37; Stop 05/25/20 at 14:37; Status DC Neostigmine [place] (Neostigmine Methylsulfate) 5 mg STK-MED ONCE .ROUTE ; Start 05/25/20 at 14:38; Stop 05/25/20 at 14:39; Status DC Glycopyrrolate (Robinul) 1 mg STK-MED ONCE .ROUTE ; Start 05/25/20 at 14:38; Stop 05/25/20 at 14:39; Status DC Rocuronium [place] (Zemuron) 50 mg STK-MED ONCE .ROUTE ; Start 05/25/20 at 14:41; Stop 05/25/20 at 14:42; Status DC Fentanyl Citrate (Fentanyl 2ml Vial) 100 mcg STK-MED ONCE .ROUTE ; Start 05/25/20 at 14:42; Stop 05/25/20 at 14:42; Status DC Sodium Chloride (Normal Saline Flush) 3 ml QSHIFT PRN IV AFTER MEDS AND BLOOD DRAWS; Start 05/25/20 at 14:45 Sodium Chloride 1,000 ml @ 75 mls/hr [id number] IV Last administered on 05/29/20at 04:12; Start 05/25/20 at 15:00 Ondansetron HCl (Zofran) 4 mg PRN Q4HRS PRN IV NAUSEA/VOMITING Last administered on 05/25/20at 23:14; Start 05/25/20 at 14:45 Acetaminophen (Tylenol Supp) 650 mg PRN Q4HRS PRN NE TEMP OVER 100.4F OR MILD PAIN; Start 05/25/20 at 14:45 Albuterol Sulfate (Ventolin Neb Soln) 2.5 mg PRN Q4HRS PRN NEB SHORTNESS OF BREATH; Start 05/25/20 at 14:45 Piperacillin Sod/ Tazobactam Sod 3.375 gm/Sodium Chloride 50 ml @ 100 mls/hr Q6HRS IV Last administered on 05/29/20at 12:39; Start 05/25/20 at 18:00 Midazolam HCl (Versed) 2 mg STK-MED ONCE .ROUTE ; Start 05/25/20 at 14:42; Stop 05/25/20 at 14:42; Status DC Pantoprazole Sodium (PROTONIX VIAL for IV PUSH) 40 mg DAILYAC IVP ; Start 05/26/20 at 07:30; Status Cancel Propofol (Diprivan) 200 mg STK-MED ONCE IV ; Start 05/25/20 at 14:44; Stop 05/25/20 at 14:44; Status DC Lidocaine HCl (Lidocaine Pf 2% Vial) 5 ml STK-MED ONCE .ROUTE ; Start 05/25/20 at 14:44; Stop 05/25/20 at 14:44; Status DC Multivitamins 10 ml/Thiamine HCl 100 mg/Folic Acid 1 mg/Sodium Chloride 1,011.2 ml @ 100 mls/ hr DAILY IV Last administered on 05/29/20at 09:32; Start 05/26/20 at 09:00; Stop 05/30/20 at 19:07 Thiamine HCl (Thiamine Im) 100 mg DAILY IM ; Start 05/30/20 at 09:00; Stop 06/04/20 at 08:59; Status UNV Thiamine HCl 100 mg/Dextrose 51 ml @ 100 mls/hr DAILY IV ; Start 05/30/20 at 09:00; Stop 06/03/20 at 09:31; Status UNV Lorazepam (Ativan Inj) 2 mg PRN Q1HR PRN IV For CIWA 8-14 Last administered on 05/26/20at 16:46; Start 05/25/20 at 14:45 Lorazepam (Ativan Inj) 4 mg PRN Q1HR PRN IV For CIWA 15 or greater; Start 05/25/20 at 14:45 Haloperidol Lactate (Haldol Inj) 5 mg PRN Q4HRS PRN IVP Hallucinatns,Confusn,Delirium; Start 05/25/20 at 14:45 Diphenhydramine HCl (Benadryl) 25 mg PRN Q15MIN PRN IVP EPS symptoms 2'Haldol admin; Start 05/25/20 at 14:45 Lorazepam (Ativan Inj) 2 mg PRN Q15MIN PRN IV SEE COMMENTS; Start 05/25/20 at 14:45; Status UNV Lorazepam (Ativan Inj) 4 mg PRN Q15MIN PRN IV SEE COMMENTS; Start 05/25/20 at 14:45; Status UNV Rocuronium [place] (Zemuron) 50 mg STK-MED ONCE .ROUTE ; Start 05/25/20 at 14:49; Stop 05/25/20 at 14:49; Status DC Pantoprazole Sodium (PROTONIX VIAL for IV PUSH) 40 mg 1X ONCE IVP ; Start 05/25/20 at 15:00; Stop 05/25/20 at 15:01; Status DC Fentanyl Citrate (Fentanyl 2ml Vial) 100 mcg STK-MED ONCE .ROUTE ; Start 05/25/20 at 15:21; Stop 05/25/20 at 15:22; Status DC Neostigmine [place] (Neostigmine Methylsulfate) 5 mg STK-MED ONCE .ROUTE ; Start 05/25/20 at 16:21; Stop 05/25/20 at 16:21; Status DC Pantoprazole Sodium 80 mg/ Sodium Chloride 100 ml @ 10 mls/hr Q10H IV Last administered on 05/26/20at 07:00; Start 05/25/20 at 18:00; Stop 05/26/20 at 09:40; Status DC Hydromorphone HCl (Dilaudid) 0.2 mg PRN Q4HRS PRN IVP MODERATE PAIN Last administered on 05/25/20at 23:40; Start 05/25/20 at 16:45 Hydromorphone HCl (Dilaudid) 1 mg PRN Q4HRS PRN IVP SEVERE PAIN Last administered on 05/28/20at 08:19; Start 05/25/20 at 16:45 Fentanyl Citrate (Fentanyl 2ml Vial) 100 mcg STK-MED ONCE .ROUTE ; Start 05/25/20 at 16:42; Stop 05/25/20 at 16:42; Status DC Fentanyl Citrate (Fentanyl 2ml Vial) 100 mcg STK-MED ONCE .ROUTE ; Start 05/25/20 at 17:14; Stop 05/25/20 at 17:14; Status DC Phenol (Chloraseptic) 1 spray PRN Q2HR PRN PO SORE THROAT Last administered on 05/26/20at 02:48; Start 05/25/20 at 20:15 Pantoprazole Sodium (PROTONIX VIAL for IV PUSH) 40 mg BIDAC IVP Last administered on 05/29/20at 09:32; Start 05/26/20 at 16:30; Stop 05/29/20 at 12:58; Status DC Acetaminophen/ Hydrocodone Bitart (Lortab 5/325) 1 tab PRN Q4HRS PRN PO PAIN Last administered on 05/29/20at 12:42; Start 05/28/20 at 12:15 Lactobacillus Rhamnosus (Culturelle) 1 cap BID PO Last administered on 05/29/20at 09:32; Start 05/28/20 at 21:00 Potassium Chloride (Klor-Con) 40 meq 1X ONCE PO Last administered on 05/29/20at 12:39; Start 05/29/20 at 12:45; Stop 05/29/20 at 12:46; Status DC Potassium Chloride (Klor-Con) 20 meq DAILYWBKFT PO ; Start 05/30/20 at 08:00 Pantoprazole Sodium (Protonix) 40 mg DAILYAC PO ; Start 05/30/20 at 07:30 Vital Signs Vital Signs Date Time Temp Pulse Resp B/P (MAP) Pulse Ox O2 Delivery O2 Flow Rate FiO2 05/29/20 12:42 Room Air 05/29/20 11:08 98.4 76 18 132/76 (94) 99 98.4 05/29/20 03:00 2.0 Labs Laboratory Tests Test 05/28/20 13:35 White Blood Count 11.9 x10^3/uL (4.0-11.0) Red Blood Count 4.01 x10^6/uL (4.30-5.70) Hemoglobin 12.3 g/dL (13.0-17.5) Hematocrit 34.2 % (39.0-53.0) Mean Corpuscular Volume 85 fL (79-100) Mean Corpuscular Hemoglobin 31 pg (25-35) Mean Corpuscular Hemoglobin Concent 36 g/dL (31-37) Red Cell Distribution Width 13.4 % (11.5-14.5) Platelet Count 400 x10^3/uL (140-400) Neutrophils (%) (Auto) 79 % (31-73) Lymphocytes (%) (Auto) 10 % (24-48) Monocytes (%) (Auto) 10 % (0-9) Eosinophils (%) (Auto) 1 % (0-3) Basophils (%) (Auto) 0 % (0-3) Neutrophils # (Auto) 9.4 x10^3/uL (1.8-7.7) Lymphocytes # (Auto) 1.2 x10^3/uL (1.0-4.8) Monocytes # (Auto) 1.1 x10^3/uL (0.0-1.1) Eosinophils # (Auto) 0.1 x10^3/uL (0.0-0.7) Basophils # (Auto) 0.0 x10^3/uL (0.0-0.2) Sodium Level 135 mmol/L (136-145) Potassium Level 3.3 mmol/L (3.5-5.1) Chloride Level 98 mmol/L (98-107) Carbon Dioxide Level 29 mmol/L (21-32) Anion Gap 8 (6-14) Blood Urea Nitrogen 9 mg/dL (8-26) Creatinine 0.7 mg/dL (0.7-1.3) Estimated GFR (Cockcroft-Gault) 124.9 BUN/Creatinine Ratio 13 (6-20) Glucose Level 132 mg/dL (70-99) Calcium Level 8.3 mg/dL (8.5-10.1) Total Bilirubin 2.4 mg/dL (0.2-1.0) Aspartate Amino Transf (AST/SGOT) 24 U/L (15-37) Alanine Aminotransferase (ALT/SGPT) 24 U/L (16-63) Alkaline Phosphatase 74 U/L (46-116) Total Protein 6.6 g/dL (6.4-8.2) Albumin 2.4 g/dL (3.4-5.0) Albumin/Globulin Ratio 0.6 (1.0-1.7) Laboratory Tests Test 05/28/20 13:35 White Blood Count 11.9 x10^3/uL (4.0-11.0) Red Blood Count 4.01 x10^6/uL (4.30-5.70) Hemoglobin 12.3 g/dL (13.0-17.5) Hematocrit 34.2 % (39.0-53.0) Mean Corpuscular Volume 85 fL (79-100) Mean Corpuscular Hemoglobin 31 pg (25-35) Mean Corpuscular Hemoglobin Concent 36 g/dL (31-37) Red Cell Distribution Width 13.4 % (11.5-14.5) Platelet Count 400 x10^3/uL (140-400) Neutrophils (%) (Auto) 79 % (31-73) Lymphocytes (%) (Auto) 10 % (24-48) Monocytes (%) (Auto) 10 % (0-9) Eosinophils (%) (Auto) 1 % (0-3) Basophils (%) (Auto) 0 % (0-3) Neutrophils # (Auto) 9.4 x10^3/uL (1.8-7.7) Lymphocytes # (Auto) 1.2 x10^3/uL (1.0-4.8) Monocytes # (Auto) 1.1 x10^3/uL (0.0-1.1) Eosinophils # (Auto) 0.1 x10^3/uL (0.0-0.7) Basophils # (Auto) 0.0 x10^3/uL (0.0-0.2) Sodium Level 135 mmol/L (136-145) Potassium Level 3.3 mmol/L (3.5-5.1) Chloride Level 98 mmol/L (98-107) Carbon Dioxide Level 29 mmol/L (21-32) Anion Gap 8 (6-14) Blood Urea Nitrogen 9 mg/dL (8-26) Creatinine 0.7 mg/dL (0.7-1.3) Estimated GFR (Cockcroft-Gault) 124.9 BUN/Creatinine Ratio 13 (6-20) Glucose Level 132 mg/dL (70-99) Calcium Level 8.3 mg/dL (8.5-10.1) Total Bilirubin 2.4 mg/dL (0.2-1.0) Aspartate Amino Transf (AST/SGOT) 24 U/L (15-37) Alanine Aminotransferase (ALT/SGPT) 24 U/L (16-63) Alkaline Phosphatase 74 U/L (46-116) Total Protein 6.6 g/dL (6.4-8.2) Albumin 2.4 g/dL (3.4-5.0) Albumin/Globulin Ratio 0.6 (1.0-1.7) Allergies Allergies Coded Allergies Type Severity Reaction Last Updated Verified No Known Drug Allergies 05/25/20 No Disposition/Orders: D/C to Home Justicifation of Admission Dx: Justifications for Admission: Justification of Admission Dx: Yes Sepsis: Infection MARIO BLOOM MD May 29, 2020 13:37
[2020-05-29] MEDS ORDERED: HYDR-2761 PO (14:12)
[2020-05-29] MEDS ORDERED: PANT40TA77 PO (14:12)
[2020-05-29 15:05] VITALS: BP 124/73
--- NOTE | 2020-05-29 15:43 | NUR ---
Discharge Note: CARMELA BATES [address] [place] [address] Discharge instructions and discharge home medications reviewed with Patient and a copy given. All questions have been answered and understanding verbalized. [employer] phone used for indian speaking patient. The following instructions and handouts were given: Substance abuse assistance, follow up with surgeon and gastric specialist. Education regarding infection and adverse reactions, and incisional care. Discontinued lines and drains: Pt DC'ed LFA IV himself. WADE drain removed prior to DC, covered with 4x4's and tape. Patient discharged to home, transport by bus. Dr. Hernandez prescribed hydrocodone for home pain management, did not leave script. Dr. Enriquez declined to write a script for the patient due to use of methamphetamine and cannibis. Recommended to patient to call the surgeons office on Monday to brass pickler a prescription. Pt agreed to this.
[2020-05-30] MEDS ORDERED: PANTOPRAZOLE 40 MG TABLET.DR. PO SCH (07:30)
[2020-05-30] MEDS ORDERED: POTASSIUM CHLORIDE 20 MEQ TABLET.ER. PO SCH (08:00)
[2020-05-30] MEDS ORDERED: THIAMINE IM 200 MG/2 ML VIAL. IM SCH (09:00)
[2020-05-30] MEDS ORDERED: THIAMINE INJ 100 MG in IV DEXTROSE 5% 50 ML IV SCH (09:00)
== END 2020-05-29 15:45 | disposition home or self-care (01) | DRG 327 ==
LOC: ER 10:13 → 4 NORTH 11:50
PROVIDERS: ADMIT Family Medicine; ATTEND Family Medicine
PROC: 0WQF0ZZ Repair Abdominal Wall, Open Approach (ICD-10-PCS; 2020-05-25)
PROC: 0DQ64ZZ Repair Stomach, Percutaneous Endoscopic Approach (ICD-10-PCS; principal; 2020-05-25 14:00)
DX: K25.5 Chronic or unspecified gastric ulcer with perforation (principal); K43.6 Other and unspecified ventral hernia with obstruction, without gangrene; K56.7 Ileus, unspecified; K52.9 Noninfective gastroenteritis and colitis, unspecified; Z20.828 Contact with and (suspected) exposure to other viral communicable diseases; F17.210 Nicotine dependence, cigarettes, uncomplicated; F15.10 Other stimulant abuse, uncomplicated; K76.9 Liver disease, unspecified; F12.90 Cannabis use, unspecified, uncomplicated; F10.10 Alcohol abuse, uncomplicated; K66.8 Other specified disorders of peritoneum
CPT/HCPCS: 36415; 71045; 74177; 80053; 80307; 81001; 83605; 83690; 83735; 84484; 85007; 85025; 85610; 87040; 88304; 93005; 96361; 96365; 96375; 99285; A7015; C9113; G0480; J1100; J1170; J2060; J2250; J2405; J2543; J2704; J2710; J3010; J3411; J3490; J7030; Q9967; G0378; U0003-CS